=== PATIENT | male | born 1950 | race Caucasian/White ===

== ENCOUNTER 2022-09-23 07:10 | Outpatient (OUT) | payer MEDICARE, SELFPAY ==
[2022-09-23 09:14] LABS: Anion Gap 10.3; BUN Creatinine Ratio 16.1; Calcium 9.1 mg/dL (8.5-10.1); Carbon Dioxide 31.2 mmol/L (21.0-32.0); Chloride 101 mmol/L (98-107); Estimated GFR (African America >60 (>=60); Estimated GFR (Non-African Ame >60 (>=60); Glucose 131 mg/dL (74-106); Potassium 4.5 mmol/L (3.5-5.1); Sodium 138 mmol/L (136-145)
== END 2022-09-23 07:11 ==
LOC: LAB 07:17
PROVIDERS: PCP Family Medicine; Visit Provider Family Medicine
DX: Z79.899 Other long term (current) drug therapy (principal)
CPT/HCPCS: 36415; 80048

== ENCOUNTER 2022-12-13 06:43 | Outpatient (OUT) | payer MEDICARE, SELFPAY ==
[2022-12-13 07:28] LABS: Basophils Percent Auto 0.4 % (0.2-2.0); Eosinophils Absolute Auto 0.1 10^3/uL (0.0-0.7); Eosinophils Percent Auto 1.6 % (0.9-7.0); Hematocrit 43.6 % (42.0-54.0); Immature Granulocytes Abs Auto 0.04 10^3/uL (0.00-0.03); Immature Granulocytes Pct Auto 0.5 % (0.0-0.5); Lymphocytes Absolute Auto 1.4 10^3/uL (1.2-3.8); Lymphocytes Percent Auto 18.7 % (20.5-60.0); Mean Corpuscular HGB Conc 34.4 g/dL (29.9-35.2); Mean Corpuscular Hemoglobin 30.9 pg (25.9-34.0); Mean Corpuscular Volume 89.9 fL (80.0-94.0); Mean Platelet Volume 10.1 fL (9.5-13.5); Monocytes Absolute Auto 0.6 10^3/uL (0.3-0.8); Monocytes Percent Auto 7.9 % (1.7-12.0); Neutrophils Absolute Auto 5.2 10^3/uL (1.4-6.5); Neutrophils Percent Auto 70.9 % (43.0-75.0); Platelet Count 185 10^3/uL (150-450); Red Blood Count 4.85 10^6/uL (4.70-6.10); Red Cell Distribution Width 12.7 % (11.0-15.0); White Blood Count 7.3 10^3/uL (4.0-11.0)
[2022-12-13 07:35] LABS: Bilirubin Urine NEGATIVE (NEGATIVE); Blood Urine NEGATIVE (NEGATIVE); Clarity Urine CLEAR (CLEAR); Color Urine YELLOW (YELLOW); Glucose Urine UA NEGATIVE (NEGATIVE); Ketones Urine TRACE mg/dL (NEGATIVE); Leukocyte Esterase Urine NEGATIVE (NEGATIVE); Nitrite Urine NEGATIVE (NEGATIVE); Protein Urine NEGATIVE (NEG/TRACE); Specific Gravity Urine 1.025 (1.005-1.025); pH Urine 5.5 (5.0-9.0)
[2022-12-13 08:06] LABS: Estimated Average Glucose 134 mg/dL; Glycohemoglobin A1C 6.3 % (4.5-6.2)
[2022-12-13 08:16] LABS: Alanine Aminotransferase 23 U/L (16-63); Albumin Globulin Ratio 0.8; Albumin Level 3.5 g/dL (3.4-5.0); Alkaline Phosphatase 88 U/L (46-116); Anion Gap 13.7; Aspartate Amino Transferase 10 U/L (15-37); BUN Creatinine Ratio 14.8; Bilirubin Total 0.7 mg/dL (0.2-1.0); Carbon Dioxide 28.5 mmol/L (21.0-32.0); Chloride 98 mmol/L (98-107); Chol HDL Ratio 3.2; Cholesterol 186 mg/dL (<=200); Estimated GFR (African America >60 (>=60); Estimated GFR (Non-African Ame >60 (>=60); Globulin 4.4 g/dL; Glucose 138 mg/dL (74-106); HDL Cholesterol 59 mg/dL (40-60); LDL Cholesterol Calculated 109.2 mg/dL; Potassium 4.2 mmol/L (3.5-5.1); Sodium 136 mmol/L (136-145); Thyroid Stimulating Hormone 1.357 uIU/mL (0.358-3.740); Total Protein 7.9 g/dL (6.4-8.2); Triglycerides 89 mg/dL (<=150); VLDL CHOLESTEROL 17.8 mg/dL
[2022-12-14 11:12] LABS: PSA, Free 0.29 ng/mL; Prostate Specific Ag 1.2 ng/mL (0.0-4.0)
== END 2022-12-13 06:44 | disposition home or self-care (01) ==
LOC: LAB 06:47
PROVIDERS: PCP Family Medicine; Visit Provider Family Medicine
DX: R35.1 Nocturia (principal); E78.5 Hyperlipidemia, unspecified; R73.9 Hyperglycemia, unspecified; Z79.899 Other long term (current) drug therapy; R97.20 Elevated prostate specific antigen [PSA]; E53.8 Deficiency of other specified B group vitamins; R63.5 Abnormal weight gain
CPT/HCPCS: 36415; 80053; 80061; 81003; 82607; 82746; 83036; 84153; 84154; 84443; 85025; 87086

== ENCOUNTER 2023-01-03 07:27 | Outpatient (OUT) | payer MEDICARE, SELFPAY ==
[2023-01-03 08:53] LABS: BUN Creatinine Ratio 18.1; Carbon Dioxide 29.9 mmol/L (21.0-32.0); Chloride 100 mmol/L (98-107); Estimated GFR (African America >60 (>=60); Estimated GFR (Non-African Ame >60 (>=60); Glucose 142 mg/dL (74-106); Potassium 3.9 mmol/L (3.5-5.1); Sodium 135 mmol/L (136-145)
== END 2023-01-03 07:28 | disposition home or self-care (01) ==
LOC: LAB 07:28
PROVIDERS: PCP Family Medicine; Visit Provider Family Medicine
DX: I10 Essential (primary) hypertension (principal); Z79.899 Other long term (current) drug therapy
CPT/HCPCS: 36415; 80048

== ENCOUNTER 2023-12-12 07:02 | Outpatient (OUT) | payer MEDICARE, SELFPAY ==
[2023-12-12 07:39] LABS: Basophils Percent Auto 0.5 % (0.2-2.0); Eosinophils Absolute Auto 0.1 10^3/uL (0.0-0.7); Eosinophils Percent Auto 1.6 % (0.9-7.0); Hematocrit 44.3 % (42.0-54.0); Hemoglobin 14.9 g/dL (14.0-18.0); Immature Granulocytes Abs Auto 0.02 10^3/uL (0.00-0.03); Immature Granulocytes Pct Auto 0.3 % (0.0-0.5); Lymphocytes Absolute Auto 1.3 10^3/uL (1.2-3.8); Lymphocytes Percent Auto 17.7 % (20.5-60.0); Mean Corpuscular HGB Conc 33.6 g/dL (29.9-35.2); Mean Corpuscular Hemoglobin 30.3 pg (25.9-34.0); Mean Platelet Volume 10.3 fL (9.5-13.5); Monocytes Absolute Auto 0.5 10^3/uL (0.3-0.8); Monocytes Percent Auto 7.2 % (1.7-12.0); Neutrophils Absolute Auto 5.5 10^3/uL (1.4-6.5); Neutrophils Percent Auto 72.7 % (43.0-75.0); Platelet Count 174 10^3/uL (150-450); Red Blood Count 4.92 10^6/uL (4.70-6.10); Red Cell Distribution Width 12.6 % (11.0-15.0); White Blood Count 7.5 10^3/uL (4.0-11.0)
[2023-12-12 07:45] LABS: Bilirubin Urine NEGATIVE (NEGATIVE); Blood Urine NEGATIVE (NEGATIVE); Clarity Urine CLEAR (CLEAR); Color Urine YELLOW (YELLOW); Glucose Urine UA NEGATIVE (NEGATIVE); Ketones Urine TRACE mg/dL (NEGATIVE); Leukocyte Esterase Urine NEGATIVE (NEGATIVE); Nitrite Urine NEGATIVE (NEGATIVE); Protein Urine NEGATIVE (NEG/TRACE); Specific Gravity Urine >=1.030 (1.005-1.025); pH Urine 5.5 (5.0-9.0)
[2023-12-12 07:56] LABS: Alanine Aminotransferase 24 U/L (16-63); Albumin Globulin Ratio 0.9; Albumin Level 3.4 g/dL (3.4-5.0); Alkaline Phosphatase 94 U/L (46-116); Anion Gap 12.6; Aspartate Amino Transferase 9 U/L (15-37); BUN Creatinine Ratio 15.2; Calcium 9.4 mg/dL (8.5-10.1); Carbon Dioxide 29.7 mmol/L (21.0-32.0); Chloride 97 mmol/L (98-107); Chol HDL Ratio 2.9; Cholesterol 187 mg/dL (<=200); Estimated GFR (African America >60 (>=60); Estimated GFR (Non-African Ame >60 (>=60); Globulin 3.9 g/dL; Glucose 151 mg/dL (74-106); HDL Cholesterol 64 mg/dL (40-60); Potassium 4.3 mmol/L (3.5-5.1); Sodium 135 mmol/L (136-145); Thyroid Stimulating Hormone 1.592 uIU/mL (0.358-3.740); Total Protein 7.3 g/dL (6.4-8.2); Triglycerides 113 mg/dL (<=150); VLDL CHOLESTEROL 22.6 mg/dL
[2023-12-12 07:58] LABS: Estimated Average Glucose 143 mg/dL; Glycohemoglobin A1C 6.6 % (4.5-6.2)
[2023-12-12 08:13] LABS: Bacteria Urine NONE SEEN #/HPF (NONE SEEN); Mucus Urine SMALL (NONE SEEN); RBC Urine NONE SEEN #/HPF (0-2); Squamous Epithelial Cell Urine FEW #/LPF (NONE/RARE); WBC Urine NONE SEEN #/HPF (NONE SEEN)
[2023-12-12 08:14] LABS: Cast Seen? SEEN #/LPF (NONE SEEN); Hyaline Casts Urine FEW
[2023-12-12 08:15] LABS: Urine Culture Indicated ALREADY ORDERED
[2023-12-13 04:12] LABS: PSA, Free 0.26 ng/mL; Prostate Specific Ag 0.9 ng/mL (0.0-4.0)
== END 2023-12-12 07:03 | disposition home or self-care (01) ==
LOC: LAB 07:05
PROVIDERS: PCP Family Medicine; Visit Provider Family Medicine
DX: R63.4 Abnormal weight loss (principal); R73.9 Hyperglycemia, unspecified; E78.5 Hyperlipidemia, unspecified; R35.1 Nocturia; Z79.899 Other long term (current) drug therapy; E53.8 Deficiency of other specified B group vitamins; R97.20 Elevated prostate specific antigen [PSA]
CPT/HCPCS: 36415; 80053; 80061; 81001; 82607; 82746; 83036; 84153; 84154; 84443; 85025; 87086

== ENCOUNTER 2024-12-15 06:34 | Outpatient (OUT) | payer MEDICARE, SELFPAY ==
--- OUTSIDE RECORDS SUMMARY | 2024-12-15 06:47 | XMS_ITS | CCD ---
Author Organization [facility] Care Team Providers Care Heel Gummer Name Role Phone Celso Colon Unavailable DARLENE, DR HOUSTON Attending Unavailable DARLENE, DR HOUSTON Consulting Unavailable DARLENE, DR HOUSTON Primary Care Unavailable GIRBOZENA, DR HOUSTON Admitting Unavailable GIRBOZENA, DR HOUSTON Attending Unavailable GIRVIN, DR HOUSTON Consulting Unavailable GIRVIN, DR HOUSTON Primary Care Unavailable GIRVIN, DR HUOSTON Admitting Unavailable GIRVIN, DR HOUSTON Attending Unavailable GIRVIN, DR HOUSTON Consulting Unavailable DARLENE, DR HOUSTON Primary Care Unavailable GIRVIN, DR HOUSTON Admitting Unavailable DARLENE, DR HOUSTON Attending Unavailable GIRVIN, DR HOUSTON Consulting Unavailable GIRVIN, DR HOUSTON Primary Care Unavailable GIRVIN, DR HOUSTON Admitting Unavailable Medications Current Medications Medication Drug Class(es) Dates Sig (Normalized) Sig (Original) [id number] 200 actuat albuterol 0.09 mg/actuat metered dose inhaler (1 source) beta2-Adrenergic Agonist Start: 09-26-2024 take 1 puff(s) by inhalation every four to six hours as needed for wheezing Albuterol Sulfate 90 mcg/actuation HFA aerosol inhaler Active 2 PUFF INHALATION EVERY 4-6 HOURS as needed for shortness of breath or wheezing 8.5 September 26, 2024 12:00am amLODIPine 10 mg oral tablet (15 sources) Dihydropyridine Calcium Channel Cassy Start: 10-31-2023 End: 09-04-2024 take 0.5 tablet by mouth once daily, then take 1 tablet by mouth once daily Amlodipine (Norvasc) 10 mg tablet Active 0 PO Daily 45 September 04, 2024 9:47am take 1/2 of a 10 MG tablet orally daily; take 0.5 tablet by mouth once da kamaljit Norvasc 10 mg 1/2 tablet Orally Once a day Active doxycycline hyclate 100 mg oral capsule (1 source) Tetracycline-class Drug Start: 09-26-2024 take 1 capsule by mouth twice daily Doxycycline Hyclate 100 mg capsule Active 100 MG PO Twice daily 04 02September 26, 2024 12:00am furosemide 40 mg oral tablet (16 sources) Loop Diuretic Start: 10-31-2023 End: 09-04-2024 Furosemide 40 mg tablet Active 0 .ROUTE .COMPLEX September 04, 2024 9:47am TAKE 1 TABLET EVERY MORNING Start: 10-31-2023 End: 10-31-2023 take 1 tablet by mouth once daily in the morning Furosemide 40 mg tablet Discontinued 40 MG PO .COMPLEX October 31, 2023 12:00am October 31, 2023 10:22am 40 mg orally ;TAKE 1 TABLET BY MOUTH ONCE EVERY MORNING; Start: 06-14-2022 take 1 tablet by clemente th once daily in the morning Lasix 40 MG 1 tablet Orally qd am for 30 days May, Active losartan potassium 50 mg oral tablet (7 sources) Angiotensin 2 Receptor Cassy Start: 10-31-2023 End: 09-04-2024 take 1 tablet by mouth once daily Losartan 50 mg tablet Active 50 MG PO Daily September 04, 2024 9:47am Start: 12-15-2022 take 1 tablet by clemente th every twenty-four hours Losartan Potassium 50 MG 1 tablet Orally Once a day for 90 days Nov, Active Start: 12-15-2022 take 1 tablet by clemente th every twenty-four hours Losartan Potassium 25 MG 1 tablet Orally Once a day for 30 days Nov, Active mecobalamin 1 mg chewable tablet (2 sources) Start: 12-14-2023 take 1 tablet by mouth once daily Mecobalamin (Vitamin B12) 1,000 mcg tablet,chewable Active 1000 MCG PO Daily December 14, 2023 12:00am 24 hr metFORMIN hydrochloride 500 mg extended release oral tablet (8 sources) Biguanide Start: 12-20-2023 take 2 tablets by mouth once daily at dinner Metformin 500 mg tablet extended release 24 hr Active 500 MG PO Every evening December 20, 2023 12:00am take 2 (500 mg) tablets with evening meal Start: 12-14-2023 End: 12-20-2023 take 1 tablet by mouth once daily in the evening Metformin 1,000 mg tablet extended release 24 hr Discontinued 1000 MG PO Every evening December 14, 2023 12:00am December 20, 2023 1:27pm *with PM meal Start: 10-31-2023 End: 12-14-2023 take 1 tablet by mouth once daily Metformin 500 mg tablet extended release 24 hr Discontinued 500 MG PO .COMPLEX October 31, 2023 12:00am December 14, 2023 8:52am 500 mg orally 1 tablet with evening meal Orally Once a day; Start: 12-10-2021 take 1 tablet by [facility] every twenty-four hours metFORMIN HCl ER 500 MG 1 tablet with evening meal Orally Once a day for 90 days Nov, Active 24 hr metoprolol succinate 100 mg extended release oral tablet (13 sources) beta-Adrenergic Cassy Start: 10-31-2023 End: 04-04-2024 take 1 tablet by mouth once daily Metoprolol Succinate 100 mg tablet extended release 24 hr Active 100 MG PO Daily April 04, 2024 11:18am Start: 02-16-2017 take 1 tablet by [facility] every twenty-four hours Metoprolol Succinate ER 100 MG 1 tablet Orally Once a day Feb, Active omeprazole 40 mg delayed release oral capsule (14 sources) Proton Pump Inhibitor Start: 12-14-2023 take 1 capsule by mouth at mealtime Omeprazole 40 mg capsule,delayed release(DR/EC) Active 40 MG PO Daily December 14, 2023 12:00am *take 15 min prior to a meal Start: 10-31-2023 End: 12-14-2023 take 1 capsule by mouth once daily Omeprazole 20 mg capsule,delayed release(DR/EC) Discontinued 20 MG PO Daily October 31, 2023 12:00am December 14, 2023 8:55am Start: 02-16-2017 take 1 capsule by mo [facility] every twenty-four hours Omeprazole 20 MG 1 capsule Orally Once a day for 90 days Feb, Active microencapsulated potassium chloride 20 meq extended release oral tablet (9 sources) Start: 06-14-2022 take 1 tablet by mouth every twenty-four hours Klor-Con M20 20 MEQ 1 tablet with food Orally Once a day for 30 days May, Active predniSONE 20 mg oral tablet (1 source) Start: 09-26-2024 take 2 tablets by mouth once daily Prednisone 20 mg tablet Active 20 MG PO .COMPLEX September 26, 2024 12:00am Take 2 tabs po daily x 5 days Vitamin B 12 1000 mcg (10 sources) Start: 05-20-2017 Vitamin B 12 1 000 mcg as directed Orally Once a day May, Active Problems Active Problems Problem Classification Problem Date Documented Date Episodic/Chronic Cardiac dysrhythmias (4 sources) Other premature depolarization; 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 Deficiency and other anemia (12 sources) Anemia; Translations: [Anemia, unspecified] 12-14-2023 Episodic Deficiency and other anemia (1 source) Anemia, unspecified; Translations: [Anemia, unspecified] 12-14-2023 Episodic Diabetes mellitus without complication (3 sources) Type 2 diabetes mellitus without complication; Translations: [Type 2 diabetes mellitus without complications] 12-14-2023 Chronic Diabetes mellitus without complication (4 sources) Hyperglycemia, unspecified; Translations: [HYPERGLYCEMIA UNSPECIFIED] Onset: 12-10-2021 Episodic Disorders of lipid metabolism (18 sources) Hyperlipidemia; Translations: [Hyperlipidemia, unspecified] Onset: 12-08-2021 Chronic Esophageal disorders (15 sources) Gastroesophageal reflux disease; Translations: [Gastro-esophageal reflux disease without esophagitis] Chronic Essential hypertension (18 sources) Essential hypertension; Translations: [Essential (primary) hypertension] Chronic Genitourinary symptoms and ill-defined conditions (2 sources) Nocturia; Translations: [NOCTURIA] Onset: 12-10-2021 Episodic Nutritional deficiencies (3 sources) Deficiency of other specified B group vitamins; Translations: [DEFICIENCY SPEC B GROUP VITAMINS] Onset: 01-25-2022 Episodic Other aftercare (7 sources) Other intermediate (current) drug therapy; Translations: [OTH 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 DRUG THERAPY] Onset: 12-10-2021 Episodic Other aftercare (2 sources) Long-term current use of drug therapy; Translations: [Other intermediate frame tender (current) drug therapy] 12-14-2023 Episodic Other diseases of veins and lymphatics (10 sources) Peripheral venous insufficiency; Translations: [Venous insufficiency (chronic) (peripheral)] Episodic Other diseases of veins and lymphatics (2 sources) Venous insufficiency (chronic) (peripheral) Episodic Other nervous system disorders (2 sources) Loss of taste; Translations: [Parageusia] 12-14-2023 Episodic Other nervous system disorders (1 source) Parageusia; Translations: [Disturbances of sensation of smell and taste] 12-14-2023 Episodic Other nutritional; endocrine; and metabolic disorders (1 source) Abnormal weight loss Episodic Other screening for suspected conditions (not mental disorders or infectious disease) (7 sources) Elevated prostate specific antigen [PSA]; Translations: [Other specified abnormal findings of blood chemistry] Onset: 12-10-2021 Episodic Other skin disorders (1 source) Rash and other nonspecific skin eruption Episodic Residual codes; unclassified (8 sources) Edema, unspecified; Translations: [EDEMA UNSPECIFIED] Onset: 07-22-2022 Episodic Past or Other Problems Problem Classification Problem Date Documented Da te Episodic/Chronic Other nutritional; endocrine; and metabolic disorders (2 sources) Abnormal weight gain; Translations: [ABNORMAL WEIGHT GAIN] Onset: 12-10-2021 Episodic Results Test Name Value Interpretation Reference Range Facility Basophils Auto (Bld) [#/Vol] on 12-12-2023 Basophils (Bld) [#/Vol] 0.0 10 3/uL 0.0-0.1 [facility] Basophils/100 WBC Auto (Bld) on 12-12-2023 Basophils/100 WBC (Bld) 0.5 % 0.2-2.0 [facility] Cholesterol in LDL Calc [Mas s/Vol]on 12-12-2023 Cholesterol in LDL [Mass/Vol] 101.0 mg/dL [facility] Comment on above: <100 mg/dl [id number] 0-129 mg/dl NEAR OR ABOVE [id number] mg/dl BORDERLINE [id number] mg/dl HIGH>190 mg/dl VERY HIGH Cholesterol in VLDL Calc [Ma ss/Vol]on 12-12-2023 Cholesterol in VLDL [Mass/Vol] 22.6 mg/dL [facility] Eosinophils/100 WBC Auto (Bl d)on 12-12-2023 Eosinophils/100 WBC (Bld) 1.6 % 0.9-7.0 [facility] Erythrocyte distribution wid th Auto (RBC) [Ratio]on 12-12-2023 Erythrocyte distribution width (RBC) [Ratio] 12.6 % 11.0-15.0 [facility] Estimated glomerular filtrat ion rate (GFR) non- Americanon 12-12-2023 GFR/1.73 sq M.predicted among non-blacks MDRD (S/P/Bld) [Vol rate/Area] mL/min/{1.73_m2} >=60 [facility] Globulin Calc (S) [Mass/Vol] on 12-12-2023 Globulin (S) [Mass/Vol] 3.9 g/dL [facility] Glucose mean value [Mass/vol ume] in Blood Estimated from glycated hemoglobinon 12-12-2023 Average glucose Estimated from glycated hemoglobin (Bld) [Mass/Vol] 143 mg/dL [facility] Hematocrit Auto (Bld) [Volum e fraction]on 12-12-2023 Hematocrit (Bld) [Volume fraction] 44.3 % 42.0-54.0 [facility] Hemoglobin [Mass/volume] in Bloodon 12-12-2023 Hemoglobin (Bld) [Mass/Vol] 14.9 g/dL 14.0-18.0 [facility] Laboratory - Chemistry and C hemistry - challengeon 12-12-2023 Albumin [Mass/Vol] 3.4 g/dL 3.4-5.0 [facility] ALP [Catalytic activity/Vol] 94 U/L 46-116 [facility] ALT [Catalytic activity/Vol] 24 U/L 16-63 [facility] AST [Catalytic activity/Vol] 9 U/L Low 15-37 [facility] Bilirubin [Mass/Vol] 1.0 mg/dL 0.2-1.0 [facility] Calcium [Mass/Vol] 9.4 mg/dL 8.5-10.1 [facility] Chloride [Moles/Vol] 97 mmol/L Low 98-107 [facility] Cholesterol [Mass/Vol] 187 mg/dL <=200 [facility] Cholesterol in HDL [Mass/Vol] 64 mg/dL High 40-60 [facility] Comment on above: > or =60 mg/dl - LOW CARDIOVASCULAR RISK<40 mg/dl - HIGH CARDIOVASCULAR RISK CO2 [Moles/Vol] 29.7 mmol/L 21.0-32.0 [facility] Cobalamin (Vitamin B12) [Mass/Vol] 626.0 pg/mL 193.0-986.0 [facility] Creatinine [Mass/Vol] 1.05 mg/dL 0.70-1.30 [facility] GFR/1.73 sq M.predicted MDRD (S/P/Bld) [Vol rate/Area] mL/min/{1.73_m2} >=60 [facility] Glucose [Mass/Vol] 151 mg/dL High 74-106 [facility] Potassium [Moles/Vol] 4.3 mmol/L 3.5-5.1 [facility] Protein [Mass/Vol] 7.3 g/dL 6.4-8.2 [facility] Sodium [Moles/Vol] 135 mmol/L Low 136-145 [facility] Triglyceride [Mass/Vol] 113 mg/dL <=150 [facility] TSH Qn 1.592 m[IU]/L 0.358-3.740 [facility] Urea nitrogen [Mass/Vol] 16.0 mg/dL 7.0-18.0 [facility] Urea nitrogen/Creatinine [Mass ratio] 15.2 mg/mg [facility] Bilirubin Ql (U) Negative NEGATIVE [facility] Glucose (U) [Mass/Vol] Negative NEGATIVE [facility] Ketones Ql (U) TRACE mg/dL Abnormal NEGATIVE [facility] pH (U) 5.5 [pH] 5.0-9.0 [facility] Specific gravity (U) [Rel density] >=1.030 Abnormal 1.005-1.025 [facility] Urobilinogen Qn (U) 1.0 {Domingo'U}/dL 0.2-1.0 [facility] Laboratory - Hematology and Cell countson 12-12-2023 HbA1c (Bld) [Mass fraction] 6.6 % High 4.5-6.2 [facility] Comment on above: ADA RECOMMENDED LIMI T 4.0 - 6.0ADA THERAPEUTIC TARGET < 7.0ACTION SUGGESTED> 7.0 Immature granulocytes/100 WBC (Bld) 0.3 % 0.0-0.5 [facility] Laboratory - Specimen inform ationon 08-26-2024 Appearance (U) CLEAR CLEAR [facility] Color (U) YELLOW YELLOW [facility] Laboratory - Urinalysison Hyaline casts LM Ql (Urine sed) FEW [facility] Leukocyte esterase Test strip Ql (U) Negative NEGATIVE [facility] Mucus Ql (Urine sed) SMALL Abnormal NONE SEEN [facility] Nitrite Ql (U) Negative NEGATIVE [facility] Protein Ql (U) Negative NEG/TRACE [facility] Leukocytes [#/volume] correc mary for nucleated erythrocytes in Blood by Automated counon 12-12-2023 WBC corrected for nucl RBC Auto (Bld) [#/Vol] 7.5 10 3/uL 4.0-11.0 [facility] Lymphocytes Auto (Bld) [#/Vo l]on 12-12-2023 Lymphocytes (Bld) [#/Vol] 1.3 10 3/uL 1.2-3.8 [facility] Lymphocytes/100 WBC Auto (Bl d)on 12-12-2023 Lymphocytes/100 WBC (Bld) 17.7 % Low 20.5-60.0 [facility] MCH Auto (RBC) [Entitic mass ]on 12-12-2023 MCH (RBC) [Entitic mass] 30.3 pg 25.9-34.0 [facility] MCHC Auto (RBC) [Mass/Vol]on 12-12-2023 MCHC (RBC) [Mass/Vol] 33.6 g/dL 29.9-35.2 [facility] MCV Auto (RBC) [Entitic vol] on 12-12-2023 MCV (RBC) [Entitic vol] 90.0 fL 80.0-94.0 [facility] Monocytes Auto (Bld) [#/Vol] on 12-12-2023 Monocytes (Bld) [#/Vol] 0.5 10 3/uL 0.3-0.8 [facility] Monocytes/100 WBC Auto (Bld) on 12-12-2023 Monocytes/100 WBC (Bld) 7.2 % 1.7-12.0 [facility] Neutrophils Auto (Bld) [#/Vo l]on 12-12-2023 Neutrophils (Bld) [#/Vol] 5.5 10 3/uL 1.4-6.5 [facility] Neutrophils/100 WBC Auto (Bl d)on 12-12-2023 Neutrophils/100 WBC (Bld) 72.7 % 43.0-75.0 [facility] No Panel Informationon 12-11 Eosinophils # (Auto) 0.1 10 3/uL 0.0-0.7 [facility] Folate 10.30 ng/mL 8.60-58.90 [facility] Free Prostate Specific Antigen 0.26 ng/mL N/A [facility] Comment on above: [employer] ECLIA methodol ogy. Immature Granulocyte # (Auto) 0.02 10 3/uL 0.00-0.03 [facility] Prostate Specific Antigen Total 0.9 ng/mL 0.0-4.0 [facility] Comment on above: [employer] ECLIA methodol ogy.According to the [employer], Serum PSAshould decrease and remain at undetectable levels afterradical prostatectomy. The AUA defines biochemicalrecurrence as an initial PSA value 0.2 ng/mL or greaterfollowed by a subsequent confirmatory PSA value 0.2 ng/mLor greater. Values obtained with different assay methods orkits cannot be used interchangeably. Results cannot beinterpreted as absolute evidence of the presence or absenceof malignant disease. Urine Bacteria NONE SEEN #/HPF NONE SEEN [facility] Urine Culture Reflexed ALREADY ORDERED [facility] Urine Occult Blood Negative NEGATIVE [facility] Urine Other Casts SEEN #/LPF Abnormal NONE SEEN [facility] Urine RBC NONE SEEN #/HPF 0-2 [facility] Urine Squamous Epithelial Cells FEW #/LPF Abnormal NONE/RARE [facility] Urine WBC NONE SEEN #/HPF NONE SEEN [facility] Platelet mean volume Auto (B ld) [Entitic vol]on 12-12-2023 Platelet mean volume (Bld) [Entitic vol] 10.3 fL 9.5-13.5 [facility] Platelets Auto (Bld) [#/Vol] on 12-12-2023 Platelets (Bld) [#/Vol] 174 10 3/uL 150-450 [facility] RBC Auto (Bld) [#/Vol]on RBC (Bld) [#/Vol] 4.92 10 6/uL 4.70-6.10 [facility] Serum or plasma albumin/glob ulin mass ratioon 12-12-2023 Albumin/Globulin [Mass ratio] 0.9 {ratio} [facility] Serum or plasma anion gap de terminationon 12-12-2023 Anion gap [Moles/Vol] 12.6 mmol/L [facility] Serum or plasma free prostat e specific antigen (PSA)/total PSA ratioon 12-12-2023 Free PSA/Total PSA [Mass fraction] 28.9 % . [facility] Comment on above: The table below list s the probability of prostate cancer formen with non-suspicious SANDRA results and total PSA between4 and 10 ng/mL, by patient age (Sheila et al, OBI 1998,279:1542). % Free PSA 50-64 yr 65-75 yr 0.00-10.00% 56% 55% 10.01-15.00% 24% 35% 15.01-20.00% 17% 23% 20.01-25.00% 10% 20% >25.00% 5% 9%Please note: Sheila et al did not make specific recommendations regarding the use of percent free PSA for any other population of men.Performed at: [facility] [id number] Director: Brien Garcia PhD, Phone: [phone] Serum or plasma total choles terol/high density lipoprotein (HDL) cholesterol mass kenny 12-12-2023 Cholesterol.total/C holesterol in HDL [Mass ratio] 2.9 {ratio} [facility] Comment on above: 3.3 - 4.4 LOW RISK4. 4 - 7.1 AVERAGE RISK7.1 - 11.0 MODERATE RISK>11.0 HIGH RISK PROF CHEM 8 (BAS METB)on Anion gap [Moles/Vol] 11.0 mmol/L Normal [facility] Comment on above: Performed By: #### C BC #### [facility] [address] [address] [address] Juan Miguel Mistry Calcium [Mass/Vol] 9.2 mg/dL Normal 8.5-10.1 [facility] Comment on above: Performed By: #### C BC #### [facility] [address] [place] [address] Dr. Juan Miguel Mistry Chloride [Moles/Vol] 100 mmol/L Normal 98-107 [facility] Comment on above: Performed By: #### C BC #### [facility] [address] [address] [address] Juan Miguel Mistry CO2 [Moles/Vol] 27.2 mmol/L Normal 21.0-32.0 [facility] Comment on above: Performed By: #### C BC #### [facility] [address] [place] [address] Dr. Juan Miguel Mistry Creatinine [Mass/Vol] 1.00 mg/dL Normal 0.70-1.30 [facility] Comment on above: Performed By: #### C BC #### [facility] [address] [place] [address] Dr. Juan Miguel Mistry EGFR-AF GREENLANDIC >60 Normal >=60 [facility] Comment on above: Performed By: #### C BC #### [facility] [address] [place] [address] Dr. Juan Miguel Mistry EGFR-NON AF GREENLANDIC >60 Normal >=60 [facility] Comment on above: Performed By: #### C BC #### [facility] [address] [place] [address] Dr. Juan Miguel Mistry Glucose [Mass/Vol] 142 mg/dL Critically high 74-106 [facility] Comment on above: Performed By: #### C BC #### [facility] [address] [place] [address] Dr. Juan Miguel Mistry Potassium [Moles/Vol] 4.2 mmol/L Normal 3.5-5.1 [facility] Comment on above: Performed By: #### C BC #### [facility] [address] [place] [address] Dr. Juan Miguel Msitry Sodium [Moles/Vol] 134 mmol/L Critically low 136-145 [facility] Comment on above: Performed By: #### C BC #### [facility] [address] [place] [address] Dr. Juan Miguel Mistry Urea nitrogen [Mass/Vol] 18.0 mg/dL Normal 7.0-18.0 [facility] Comment on above: Performed By: #### C BC #### [facility] [address] [place] [address] Dr. Juan Miguel Mistry Urea nitrogen/Creatinine [Mass ratio] 18.0 mg/mg Normal [facility] Comment on above: Performed By: #### C BC #### [facility] [address] [place] [address] Dr. Juan Miguel Mistry PROF 14(COMP METB)on 023 Albumin [Mass/Vol] 3.6 g/dL Normal 3.4-5.0 [facility] Comment on above: Performed By: #### C BC #### [facility] [address] [place] [address] Dr. Juan Miguel Mistry Albumin/Globulin [Mass ratio] 0.9 {ratio} Normal [facility] Comment on above: Performed By: #### C BC #### [facility] [address] [place] [address] Dr. Juan Miguel Mistry ALP [Catalytic activity/Vol] 82 U/L Normal 46-116 [facility] Comment on above: Performed By: #### C BC #### [facility] [address] [place] [address] Dr. Juan Miguel Mistry ALT [Catalytic activity/Vol] 22 U/L Normal 16-63 [facility] Comment on above: Performed By: #### C BC #### [facility] [address] [place] [address] Dr. Juan Miguel Mistry Anion gap [Moles/Vol] 12.7 mmol/L Normal [facility] Comment on above: Performed By: #### C BC #### [facility] [address] [place] [address] Dr. Juan Miguel Mistry AST [Catalytic activity/Vol] 15 U/L Normal 15-37 [facility] Comment on above: Performed By: #### C BC #### [facility] [address] [address] [address] Juan Miguel Mistry Bilirubin [Mass/Vol] 1.1 mg/dL Critically high 0.2-1.0 [facility] Comment on above: Performed By: #### C BC #### [facility] [address] [place] [address] Dr. Juan Miguel Mistry Calcium [Mass/Vol] 9.0 mg/dL Normal 8.5-10.1 [facility] Comment on above: Performed By: #### C BC #### [facility] [address] [address] [address] Juan Miguel Mistry Chloride [Moles/Vol] 101 mmol/L Normal 98-107 [facility] Comment on above: Performed By: #### C BC #### [facility] [address] [place] [address] Dr. Juan Miguel Mistry CO2 [Moles/Vol] 28.1 mmol/L Normal 21.0-32.0 [facility] Comment on above: Performed By: #### C BC #### [facility] [address] [place] [address] Dr. Juan Miguel Mistry Creatinine [Mass/Vol] 0.91 mg/dL Normal 0.70-1.30 [facility] Comment on above: Performed By: #### C BC #### [facility] [address] [place] [address] Dr. Juan Miguel Mistry EGFR-AF GREENLANDIC >60 Normal >=60 [facility] Comment on above: Performed By: #### C BC #### [facility] [address] [place] [address] Dr. Juan Miguel Mistry EGFR-NON AF GREENLANDIC >60 Normal >=60 [facility] Comment on above: Performed By: #### C BC #### [facility] [address] [place] [address] Dr. Juan Miguel Mistry Globulin (S) [Mass/Vol] 3.9 g/dL Normal [facility] Comment on above: Performed By: #### C BC #### [facility] [address] [place] [address] Dr. Juan Miguel Mistry Glucose [Mass/Vol] 133 mg/dL Critically high 74-106 [facility] Comment on above: Performed By: #### C BC #### [facility] [address] [place] [address] Dr. Juan Miguel Mistry Potassium [Moles/Vol] 4.8 mmol/L Normal 3.5-5.1 [facility] Comment on above: Performed By: #### C BC #### [facility] [address] [place] [address] Dr. Juan Miguel Mistry Protein [Mass/Vol] 7.5 g/dL Normal 6.4-8.2 [facility] Comment on above: Performed By: #### C BC #### [facility] [address] [place] [address] Dr. Juan Miguel Msitry Sodium [Moles/Vol] 137 mmol/L Normal 136-145 [facility] Comment on above: Performed By: #### C BC #### [facility] [address] [place] [address] Dr. Juan Miguel Mistry Urea nitrogen [Mass/Vol] 17.0 mg/dL Normal 7.0-18.0 [facility] Comment on above: Performed By: #### C BC #### [facility] [address] [place] [address] Dr. Juan Miguel Mistry Urea nitrogen/Creatinine [Mass ratio] 18.7 mg/mg Normal [facility] Comment on above: Performed By: #### C BC #### [facility] [address] [place] [address] Dr. Juan Miguel Mistry PROF 14(COMP METB)on 022 Albumin [Mass/Vol] 3.5 g/dL Normal 3.4-5.0 [facility] Comment on above: Performed By: #### C MP #### [facility] [address] [place] [address] Dr. Juan Miguel Mistry Albumin/Globulin [Mass ratio] 0.9 {ratio} Normal [facility] Comment on above: Performed By: #### C MP #### [facility] [address] [place] [address] Dr. Juan Miguel Mistry ALP [Catalytic activity/Vol] 75 U/L Normal 46-116 [facility] Comment on above: Performed By: #### C MP #### [facility] [address] [address] [address] Juan Miguel Mistry ALT [Catalytic activity/Vol] 25 U/L Normal 16-63 [facility] Comment on above: Performed By: #### C MP #### [facility] [address] [address] [address] Juan Miguel Mistry Anion gap [Moles/Vol] 7.6 mmol/L Normal [facility] Comment on above: Performed By: #### C MP #### [facility] [address] [address] [address] Juan Miguel Mistry AST [Catalytic activity/Vol] 11 U/L Critically low 15-37 [facility] Comment on above: Performed By: #### C MP #### [facility] [address] [address] [address] Juan Miguel Mistry Bilirubin [Mass/Vol] 0.8 mg/dL Normal 0.2-1.0 [facility] Comment on above: Performed By: #### C MP #### [facility] [address] [address] [address] Juan Miguel Mistry Calcium [Mass/Vol] 8.7 mg/dL Normal 8.5-10.1 [facility] Comment on above: Performed By: #### C MP #### [facility] [address] [address] [address] Juan Miguel Mistry Chloride [Moles/Vol] 101 mmol/L Normal 98-107 [facility] Comment on above: Performed By: #### C MP #### [facility] [address] [address] [address] Juan Miguel Mistry CO2 [Moles/Vol] 28.8 mmol/L Normal 21.0-32.0 [facility] Comment on above: Performed By: #### C MP #### [facility] [address] [address] [address] Juan Miguel Mistry Creatinine [Mass/Vol] 1.22 mg/dL Normal 0.70-1.30 [facility] Comment on above: Performed By: #### C MP #### [facility] [address] [address] [address] Juan Miguel Mistry EGFR-AF GREENLANDIC >60 Normal >=60 [facility] Comment on above: Performed By: #### C MP #### [facility] [address] [address] [address] Juan Miguel Mistry EGFR-NON AF GREENLANDIC 58 mL/min/1.73m2 Critically low >=60 [facility] Comment on above: Performed By: #### C MP #### [facility] [address] [address] [address] Juan Miguel Mistry Globulin (S) [Mass/Vol] 3.8 g/dL Normal [facility] Comment on above: Performed By: #### C MP #### [facility] [address] [address] [address] Juan Miguel Mistry Glucose [Mass/Vol] 146 mg/dL Critically high 74-106 [facility] Comment on above: Performed By: #### C MP #### [facility] [address] [address] [address] Juan Miguel Mistry Potassium [Moles/Vol] 4.4 mmol/L Normal 3.5-5.1 [facility] Comment on above: Performed By: #### C MP #### [facility] [address] [address] [address] Juan Miguel Mistry Protein [Mass/Vol] 7.3 g/dL Normal 6.4-8.2 [facility] Comment on above: Performed By: #### C MP #### [facility] [address] [address] [address] Juan Miguel Mistry Sodium [Moles/Vol] 133 mmol/L Critically low 136-145 [facility] Comment on above: Performed By: #### C MP #### [facility] [address] [address] [address] Juan Miguel Mistry Urea nitrogen [Mass/Vol] 17.0 mg/dL Normal 7.0-18.0 [facility] Comment on above: Performed By: #### C MP #### [facility] [address] [place], [place] [address] Dr. Juan Miguel Mistry Urea nitrogen/Creatinine [Mass ratio] 13.9 mg/mg Normal [facility] Comment on above: Performed By: #### C MP #### [facility] [address] [place], [place] [address] Dr. Juan Miguel Mistry VIT B12 AND FOLATEon 022 Cobalamin (Vitamin B12) [Mass/Vol] 412.0 pg/mL Normal 193.0-986.0 [facility] Comment on above: Performed By: #### B 12FOL #### [facility] [address] [id number] [address] Juan Miguel Mistry FOLATE 8.80 ng/mL Normal 8.60-58.90 [facility] Comment on above: Performed By: #### B 12FOL #### [facility] [address] [place], [place] [id number] Dr. Juan Miguel Mistry PSA, FREE AND TOTAL RATIOon 12-09-2021 % Free PSA 28.3 % Normal [facility] Comment on above: Result Comment: The table below lists the probability of prostate cancer for men with non-suspicious SANDRA results and total PSA between 4 and 10 ng/mL, by patient age (Sheila et al, OBI 1998, 279:1542). % Free PSA 50-64 yr 65-75 yr 0.00-10.00% 56% 55% 10.01-15.00% 24% 35% 15.01-20.00% 17% 23% 20.01-25.00% 10% 20% >25.00% 5% 9% Please note: Sheila et al did not make specific recommendations regarding the use of percent free PSA for any other population of men. Performed By: #### C BC #### [facility] [address] [place], [place] [id number] Dr. Juan Miguel Mistry Prostate specific Ag [Mass/Vol] 3.0 ng/mL Normal 0.0-4.0 [facility] Comment on above: Result Comment: Roch jose f ECLIA methodology. . According to the [employer], Serum PSA should decrease and remain at undetectable levels after radical prostatectomy. The AUA defines biochemical recurrence as an initial PSA value 0.2 ng/mL or greater followed by a subsequent confirmatory PSA value 0.2 ng/mL or greater. Values obtained with different assay methods or kits cannot be used interchangeably. Results cannot be interpreted as absolute evidence of the presence or absence of malignant disease. Performed By: #### C BC #### [facility] [address] [place] [address] Dr. Juan Miguel Mistry PSA, Free 0.85 ng/mL Normal N/A [facility] Comment on above: Result Comment: Jessica LUEVANO methodology. Performed By: #### C BC #### [facility] [address] [place] [address] Dr. Juan Miguel Mistry CBC AUTO DIFFon 12-08-2021 BASO # 0.0 103/ul Normal 0.0-0.1 [facility] Comment on above: Performed By: #### C BC #### [facility] [address] [place] [address] Dr. Juan Miguel Mistry Basophils/100 WBC (Bld) 0.5 % Normal 0.2-2.0 [facility] Comment on above: Performed By: #### C BC #### [facility] [address] [place] [address] Dr. Juan Miguel Mistry EO # 0.1 103/ul Normal 0.0-0.7 [facility] Comment on above: Performed By: #### C BC #### [facility] [address] [place] [address] Dr. Juan Miguel Mistry Eosinophils/100 WBC (Bld) 1.2 % Normal 0.9-7.0 [facility] Comment on above: Performed By: #### C BC #### [facility] [address] [place] [address] Dr. Juan Miguel Mistry Erythrocyte distribution width (RBC) [Ratio] 13.0 % Normal 11.0-15.0 [facility] Comment on above: Performed By: #### C BC #### [facility] [address] [place] [address] Dr. Juan Miguel Mistry Hematocrit (Bld) [Volume fraction] 42.9 % Normal 42.0-54.0 [facility] Comment on above: Performed By: #### C BC #### [facility] [address] [address] [address] Juan Miguel Mistry Hemoglobin (Bld) [Mass/Vol] 14.3 g/dL Normal 14.0-18.0 [facility] Comment on above: Performed By: #### C BC #### [facility] [address] [address] [address] Juan Miguel Mistry IG # 0.03 10e3/ul Normal 0.00-0.03 [facility] Comment on above: Performed By: #### C BC #### [facility] [address] [address] [address] Juan Miguel Mistry IG % 0.4 % Normal 0.0-0.5 [facility] Comment on above: Performed By: #### C BC #### [facility] [address] [place] [address] Dr. Juan Miguel Mistry LYMPH # 1.3 103/ul Normal 1.2-3.8 [facility] Comment on above: Performed By: #### C BC #### [facility] [address] [place] [address] Dr. Juan Miguel Mistry Lymphocytes/100 WBC (Bld) 17.3 % Critically low 20.5-60.0 [facility] Comment on above: Performed By: #### C BC #### [facility] [address] [place] [address] Dr. Juan Miguel Mistry MANUAL DIFF REQ NO Normal [facility] [place] Comment on above: Performed By: #### C BC #### [facility] [address] [address] [address] Juan Miguel Mistry MCH (RBC) [Entitic mass] 30.0 pg Normal 25.9-34.0 [facility] Comment on above: Performed By: #### C BC #### [facility] [address] [address] [address] Juan Miguel Mistry MCHC (RBC) [Mass/Vol] 33.3 g/dL Normal 29.9-35.2 [facility] Comment on above: Performed By: #### C BC #### [facility] [address] [address] [address] Juan Miguel Mistry MCV (RBC) [Entitic vol] 90.1 fL Normal 80.0-94.0 [facility] Comment on above: Performed By: #### C BC #### [facility] [address] [address] [address] Juan Miguel Mistry MONO # 0.7 103/ul Normal 0.3-0.8 [facility] Comment on above: Performed By: #### C BC #### [facility] [address] [address] [address] Juan Miguel Mistry Monocytes/100 WBC (Bld) 8.9 % Normal 1.7-12.0 [facility] Comment on above: Performed By: #### C BC #### [facility] [address] [place] [address] Dr. Juan Miguel Mistry NEUT # 5.6 103/ul Normal 1.4-6.5 [facility] Comment on above: Performed By: #### C BC #### [facility] [address] [place] [address] Dr. Juan Miguel Mistry Neutrophils/100 WBC (Bld) 71.7 % Normal 43.0-75.0 [facility] Comment on above: Performed By: #### C BC #### [facility] [address] [place] [address] Dr. Juan Miguel Mistry Platelet mean volume (Bld) [Entitic vol] 10.8 fL Normal 9.5-13.5 [facility] Comment on above: Performed By: #### C BC #### [facility] [address] [place] [address] Dr. Juan Miguel Mistry PLT 191 103/ul Normal 150-450 [facility] Comment on above: Performed By: #### C BC #### [facility] [address] [place] [address] Dr. Juan Miguel Mistry RBC 4.76 106/ul Normal 4.70-6.10 [facility] Comment on above: Performed By: #### C BC #### [facility] [address] [place] [address] Dr. Juan Miguel Mistry WBC 7.8 103/ul Normal 4.0-11.0 [facility] Comment on above: Performed By: #### C BC #### [facility] [address] [place] [address] Dr. Juan Miguel Mistry CULTURE URINEon 12-08-2021 CULTURE URINE Culture Observations : LIGHT GROWTH OF MIXED SKIN ANAYELI. NO POTENTIAL PATHOGENS SEEN. Normal [facility] Comment on above: Performed By: #### U RCX #### [facility] [address] [place] [address] Dr. Juan Miguel Mistry FOLATEon 12-08-2021 FOLATE 11.20 ng/mL Normal 8.60-58.90 [facility] Comment on above: Performed By: #### V ITB12, FOL #### [facility] [address] [place] [address] Dr. Juan Miguel Mistry GLYCOHEMOGLOBIN A1Con 2021 ADA RECOMMENDATION SEE BELOW Normal [facility] Comment on above: Result Comment: ADA RECOMMENDED LIMIT 4.0 - 6.0 ADA THERAPEUTIC TARGET < 7.0 ACTION SUGGESTED > 7.0 Performed By: #### C BC #### [facility] [address] [place] [address] Dr. Juan Miguel Mistry Glucose [Mass/Vol] 131 mg/dL Normal [facility] Comment on above: Performed By: #### C BC #### [facility] [address] [place] [address] Dr. Juan Miguel Mistry HbA1c (Bld) [Mass fraction] 6.2 % Normal 4.5-6.2 [facility] Comment on above: Performed By: #### C BC #### [facility] [address] [place] [address] Dr. Juan Miguel Mistry LIPID PROFILEon 12-08-2021 CHOL-HDL RATIO NORM SEE BELOW Normal [facility] Comment on above: Result Comment: 3.3 - 4.4 LOW RISK 4.4 - 7.1 AVERAGE RISK 7.1 - 11.0 MODERATE RISK >11.0 HIGH RISK Performed By: #### C MP, LIPID, TSH #### [facility] [address] [address] [address] Juan Miguel Mistry Cholesterol [Mass/Vol] 177 mg/dL Normal <=200 [facility] Comment on above: Performed By: #### C MP, LIPID, TSH #### [facility] [address] [address] [address] Juan Miguel Mistry Cholesterol in HDL [Mass/Vol] 61 mg/dL Critically high 40-60 [facility] Comment on above: Performed By: #### C MP, LIPID, TSH #### [facility] [address] [address] [address] Juan Miguel Mistry Cholesterol in LDL [Mass/Vol] 100.2 mg/dL Normal [facility] Comment on above: Performed By: #### C MP, LIPID, TSH #### [facility] [address] [address] [address] Juan Miguel Mistry Cholesterol.total/C holesterol in HDL [Mass ratio] 2.9 {ratio} Normal [facility] Comment on above: Performed By: #### C MP, LIPID, TSH #### [facility] [address] [address] [address] Juan Miguel Mistry HDL NORMAL > or = 60 mg/dl - LO W CARDIOVASCULAR RISK <40 mg/dl - HIGH CARDIOVASCULAR RISK Normal [facility] Comment on above: Performed By: #### C MP, LIPID, TSH #### [facility] [address] [address] [address] Juan Miguel Mistry LDL CALC NORMAL SEE BELOW Normal [facility] Comment on above: Result Comment: <100 mg/dl OPTIMAL 100 - 129 mg/dl NEAR OR ABOVE OPTIMAL 130 - 159 mg/dl BORDERLINE HIGH 160 - 189 mg/dl HIGH >190 mg/dl VERY HIGH Performed By: #### C MP, LIPID, TSH #### [facility] [address] [address] [address] Juan Miguel Mistry Triglyceride [Mass/Vol] 79 mg/dL Normal <=150 [facility] Comment on above: Performed By: #### C MP, LIPID, TSH #### [facility] [address] [address] [address] Juan Miguel Mistry VLDL CALC 15.8 mg/dL Normal [facility] Comment on above: Performed By: #### C MP, LIPID, TSH #### [facility] [address] [address] [address] Juan Miguel Mistry PROF 14(COMP METB)on 022 Albumin [Mass/Vol] 3.6 g/dL Normal 3.4-5.0 [facility] Comment on above: Performed By: #### C MP, LIPID, TSH #### [facility] [address] [place] [address] Dr. Juan Miguel Mistry Albumin/Globulin [Mass ratio] 0.9 {ratio} Normal [facility] Comment on above: Performed By: #### C MP, LIPID, TSH #### [facility] [address] [place] [address] Dr. Juan Miguel Mistry ALP [Catalytic activity/Vol] 85 U/L Normal 46-116 [facility] Comment on above: Performed By: #### C MP, LIPID, TSH #### [facility] [address] [place] [address] Dr. Juan Miguel Mistry ALT [Catalytic activity/Vol] 25 U/L Normal 16-63 [facility] Comment on above: Performed By: #### C MP, LIPID, TSH #### [facility] [address] [place] [address] Dr. Juan Miguel Mistry Anion gap [Moles/Vol] 12.4 mmol/L Normal [facility] Comment on above: Performed By: #### C MP, LIPID, TSH #### [facility] [address] [place] [address] Dr. Juan Miguel Mistry AST [Catalytic activity/Vol] 10 U/L Critically low 15-37 [facility] Comment on above: Performed By: #### C MP, LIPID, TSH #### [facility] [address] [place] [address] Dr. Juan Miguel Mistry Bilirubin [Mass/Vol] 0.7 mg/dL Normal 0.2-1.0 [facility] Comment on above: Performed By: #### C MP, LIPID, TSH #### [facility] [address] [address] [address] Juan Miguel Mistry Calcium [Mass/Vol] 8.7 mg/dL Normal 8.5-10.1 [facility] Comment on above: Performed By: #### C MP, LIPID, TSH #### [facility] [address] [address] [address] Juan Miguel Mistry Chloride [Moles/Vol] 100 mmol/L Normal 98-107 [facility] Comment on above: Performed By: #### C MP, LIPID, TSH #### [facility] [address] [address] [address] Juan Miguel Mistry CO2 [Moles/Vol] 27.9 mmol/L Normal 21.0-32.0 [facility] Comment on above: Performed By: #### C MP, LIPID, TSH #### [facility] [address] [place] [address] Dr. Juan Miguel Mistry Creatinine [Mass/Vol] 0.99 mg/dL Normal 0.70-1.30 [facility] Comment on above: Performed By: #### C MP, LIPID, TSH #### [facility] [address] [place] [address] Dr. Juan Miguel Mistry EGFR-AF GREENLANDIC >60 Normal >=60 [facility] Comment on above: Performed By: #### C MP, LIPID, TSH #### [facility] [address] [place] [address] Dr. Juan Miguel Mistry EGFR-NON AF GREENLANDIC >60 Normal >=60 [facility] Comment on above: Performed By: #### C MP, LIPID, TSH #### [facility] [address] [place] [address] Dr. Juan Miguel Mistry Globulin (S) [Mass/Vol] 3.9 g/dL Normal [facility] Comment on above: Performed By: #### C MP, LIPID, TSH #### [facility] [address] [place] [address] Dr. Juan Miguel Mistry Glucose [Mass/Vol] 138 mg/dL Critically high 74-106 [facility] Comment on above: Performed By: #### C MP, LIPID, TSH #### [facility] [address] [address] [address] Juan Miguel Mistry Potassium [Moles/Vol] 4.3 mmol/L Normal 3.5-5.1 [facility] Comment on above: Performed By: #### C MP, LIPID, TSH #### [facility] [address] [address] [address] Juan Miguel Mistry Protein [Mass/Vol] 7.5 g/dL Normal 6.4-8.2 [facility] Comment on above: Performed By: #### C MP, LIPID, TSH #### [facility] [address] [address] [address] Juan Miguel Mistry Sodium [Moles/Vol] 136 mmol/L Normal 136-145 [facility] Comment on above: Performed By: #### C MP, LIPID, TSH #### [facility] [address] [place] [address] Dr. Juan Miguel Mistry Urea nitrogen [Mass/Vol] 17.0 mg/dL Normal 7.0-18.0 [facility] Comment on above: Performed By: #### C MP, LIPID, TSH #### [facility] [address] [address] [address] Juan Miguel Mistry Urea nitrogen/Creatinine [Mass ratio] 17.2 mg/mg Normal [facility] Comment on above: Performed By: #### C MP, LIPID, TSH #### [facility] [address] [place] [address] Dr. Juan Miguel Mistry TSHon 12-08-2021 TSH 1.682 uIU/mL Normal 0.358-3.740 [facility] Comment on above: Performed By: #### C MP, LIPID, TSH #### [facility] [address] [place] [address] Dr. Juan Miguel Mistry UA RANDOMon 12-08-2021 Bilirubin Ql (U) Negative Normal NEGATIVE [facility] Comment on above: Performed By: #### U A #### [facility] [address] [place] [address] Dr. Juan Miguel Mistry Clarity (U) CLEAR Normal CLEAR [facility] Comment on above: Performed By: #### U A #### [facility] [address] [address] [address] Juan Miguel Mistry Color (U) LT. YELLOW Normal YELLOW [facility] Comment on above: Performed By: #### U A #### [facility] [address] [address] [address] Juan Miguel Mistry Glucose Ql (U) Negative Normal NEGATIVE [facility] Comment on above: Performed By: #### U A #### [facility] [address] [place] [address] Dr. Juan Miguel Mistry Hemoglobin Ql (U) Negative Normal NEGATIVE [facility] Comment on above: Performed By: #### U A #### [facility] [address] [place] [address] Dr. Juan Miguel Mistry Ketones Ql (U) Negative Normal NEGATIVE [facility] Comment on above: Performed By: #### U A #### [facility] [address] [place] [address] Dr. Juan Miguel Mistry LEUKOCYTES SMALL Abnormal NEGATIVE [facility] Comment on above: Performed By: #### U A #### [facility] [address] [place] [address] Dr. Juan Miguel Mistry Nitrite Ql (U) Negative Normal NEGATIVE [facility] Comment on above: Performed By: #### U A #### [facility] [address] [place] [address] Dr. Juan Miguel Mistry pH (U) 6.0 [pH] Normal 5-9 [facility] Comment on above: Performed By: #### U A #### [facility] [address] [place] [address] Dr. Juan Miguel Mistry SPEC GRAVITY 1.025 Normal 1.005-<=1.025 [facility] Comment on above: Performed By: #### U A #### [facility] [address] [place] [address] Dr. Juan Miguel Mistry UA PROTEIN Negative Normal NEGATIVE/ TRACE [facility] Comment on above: Performed By: #### U A #### [facility] [address] [place] [address] Dr. Juan Miguel Mistry Urobilinogen Qn (U) 1.0 {Domingo'U}/dL Normal 0.2 - 1. 0 [facility] Comment on above: Performed By: #### U A #### [facility] [address] [address] [address] Juan Miguel Mistry VITAMIN B12on 12-08-2021 Cobalamin (Vitamin B12) [Mass/Vol] 407.0 pg/mL Normal 193.0-986.0 [facility] Comment on above: Performed By: #### V ITB12, FOL #### [facility] [address] [address] [address] Juan Miguel Mistry Vital Signs Date Time Vital Sign Value Performing Clinician Facility 09-26-2024 10:09-0400 Diastolic blood pressure 90 mm[Hg] [facility] 09-26-2024 10:09-0400 Systolic blood pressure 164 mm[Hg] [facility] 09-26-2024 09:48-0400 Body height 167 cm [facility] 09-26-2024 09:48-0400 Body mass index (BMI) [Ratio] 49.1 kg/m2 [facility] 09-26-2024 09:48-0400 Body temperature 98.4 [degF] [facility] 09-26-2024 09:48-0400 Body weight 136.98 kg [facility] 09-26-2024 09:48-0400 Heart rate 62 /min [facility] 09-26-2024 09:48-0400 Respiratory rate 20 /min [facility] 09-26-2024 09:48-0400 SaO2% (BldA) [Mass fraction] 96 % [facility] 12-14-2023 08:24-0400 Body height 167 cm [facility] 12-14-2023 08:24-0400 Body mass index (BMI) [Ratio] 48.6 kg/m2 [facility] 12-14-2023 08:24-0400 Body temperature 97.7 [degF] [facility] 12-14-2023 08:24-0400 Body weight 135.62 kg [facility] 12-14-2023 08:24-0400 Diastolic blood pressure 78 mm[Hg] [facility] 12-14-2023 08:24-0400 Heart rate 66 /min [facility] 12-14-2023 08:24-0400 SaO2% (BldA) [Mass fraction] 98 % [facility] 12-14-2023 08:24-0400 Systolic blood pressure 142 mm[Hg] [facility] 01-17-2023 09:50-0400 Body height 167 cm Celso Colon Other [facility] [employer] Other 01-17-2023 09:50-0400 Body mass index (BMI) [Ratio] 48.3 kg/m2 Celso Colon Other [facility] Other 01-17-2023 09:50-0400 Body temperature 98.1 [degF] Celso Colon Other [facility] Other 01-17-2023 09:50-0400 Body weight 134.72 kg Celso Colon Other [facility] Other 01-17-2023 09:50-0400 Diastolic blood pressure 98 mm[Hg] Celso Colon Other [facility] Other 01-17-2023 09:50-0400 Respiratory rate 18 /min Celso Colon Other [facility] Other 01-17-2023 09:50-0400 SaO2% (BldA) [Mass fraction] 97 % Celso Colon Other [facility] Other 01-17-2023 09:50-0400 Systolic blood pressure 142 mm[Hg] Celso Colon Other [facility] Other 12-15-2022 08:10-0400 Body height 167 cm Celso Raquelbozena Other [facility] Other 12-15-2022 08:10-0400 Body mass index (BMI) [Ratio] 48.3 kg/m2 Celso Raquelbozena Other [facility] Other 12-15-2022 08:10-0400 Body temperature 98.4 [degF] Celso Colon Other [facility] Other 12-15-2022 08:10-0400 Body weight 134.72 kg Celso Colon Other [facility] Other 12-15-2022 08:10-0400 Diastolic blood pressure 100 mm[Hg] Celso Colon Other [facility] Other 12-15-2022 08:10-0400 Respiratory rate 18 /min Celso Darlene Other [facility] Other 12-15-2022 08:10-0400 SaO2% (BldA) [Mass fraction] 97 % Celso Colon Other [facility] Other 12-15-2022 08:10-0400 Systolic blood pressure 158 mm[Hg] Celso Colon Other [facility] Other 06-14-2022 14:00-0500 Body height 167 cm Celso Raquelbozena Other [facility] Other 06-14-2022 14:00-0500 Body mass index (BMI) [Ratio] 49.44 kg/m2 Celso Colon Other [facility] Other 06-14-2022 14:00-0500 Body temperature 98.4 [degF] Celso Colon Other [facility] Other 06-14-2022 14:00-0500 Body weight 137.89 kg Celso Colon Other [facility] Other 06-14-2022 14:00-0500 Diastolic blood pressure 88 mm[Hg] Celso Colon Other [facility] Other 06-14-2022 14:00-0500 Respiratory rate 18 /min Celso Colon Other [facility] Other 06-14-2022 14:00-0500 SaO2% (BldA) [Mass fraction] 95 % Celso Colon Other [facility] Other 06-14-2022 14:00-0500 Systolic blood pressure 138 mm[Hg] Celso Colon Other [facility] Other Encounters Encounter Date Encounter Type Care Provider Facility Start: 09-26-2024 End: 09-26-2024 ambulatory [facility] Work Phone: Start: 09-26-2024 End: 09-26-2024 Patient encounter procedure [facility] Work Phone: Start: 12-14-2023 End: 12-14-2023 ambulatory [facility] Work Phone: Start: 12-14-2023 End: 12-14-2023 Patient encounter procedure [facility] Physician [facility] Family [facility] Work Phone: Start: 12-12-2023 Non-patient / Non-visit [facility] Work Phone: Start: 10-31-2023 Non-patient / Non-visit [facility] Family [facility] Work Phone: Start: 01-17-2023 End: 01-17-2023 ambulatory Celso Colon Other [facility] Other Start: 01-17-2023 Office outpatient vi sit 15 minutes Celso Colon [facility] Start: 01-03-2023 End: 01-03-2023 ambulatory Celso Colon Other [facility] Other Start: 01-03-2023 Telephone encounter Celso Colon [facility] Start: 12-15-2022 End: 12-15-2022 ambulatory Celso Colon Other [facility] Other Start: 12-15-2022 Office outpatient vi sit 25 minutes Celso Colon [facility] Start: 09-20-2022 End: 09-20-2022 ambulatory Celso Colon Other [facility] Other Start: 09-20-2022 Telephone encounter Celso Colon [facility] Start: 08-20-2022 End: 08-20-2022 ambulatory Celso Colon Other [facility] Other Start: 08-20-2022 Telephone encounter Celso Colon [facility] Start: 07-22-2022 Telephone encounter Celso Colon [facility] Start: 07-22-2022 End: 07-23-[address]ELSO COLON [facility] [employer] Other Start: 07-14-2022 End: 07-14-2022 ambulatory Celso Colon Other [facility] Other Start: 07-14-2022 Telephone encounter Celso Colon [facility] Start: 06-21-2022 End: 06-22-[address] CELSO COLON Facility: Start: 06-14-2022 End: 06-14-2022 ambulatory Celso Colon Other [facility] Other Start: 06-14-2022 Office outpatient vi sit 15 minutes Celso Colon [facility] Start: 06-14-2022 Telephone encounter Celso Colon [facility] Start: 01-22-2022 End: 01-23-[address] CELSO COLON Facility:[facility] Start: 12-08-2021 End: 12-09-[address] CELSO COLON Facility:[facility] Plan of Treatment Date Care Activity Detail Author Bacteria identified in Urine by Culture [facility] Comprehensive metabo lic 2000 panel - Serum or Plasma [facility] enter [facility] Immunizations Immunization Date Immunization Notes Care Provider Fa cility 02-16-2017 influenza virus vaccine, unspecified formulation [facility] 02-16-2017 influenza, high dose seasonal, preservative-free Celso Colon Other [facility] Other 01-14-2016 influenza virus vaccine, unspecified formulation [facility] 01-14-2016 influenza, high dose seasonal, preservative-free Celso Colon Other [facility] Other Payers Date Payer Category Payer Medicare [id number] 2. [id number] 1950 Unknown [id number] 1950 Unknown [id number] 1950 Unknown [id number] 1950 Unknown [id number] Social History Date Type Detail Facility Unknown if ever smoked [facility] Other Sex Assigned At Sex Assigned At Bir th [facility] Other Start: 12-14-2023 Tobacco smoking status NHIS Never smoked tobacco (finding) [facility] Start: 1950 Sex Assigned At Male F [facility] Start: 09-26-2024 Sex Male (finding) [facility] Clinical Notes 10-08-2008 to 01-17-2023 Note Date & Type Note Facility 01-17-2023 Evaluation note Encounter Date Diagnosis Assessment Notes Jan, Essential (primary) hypertension (ICD-10 - I10) At this time his blood pressure is not as controlled as we would like to see. I would like to increase his Losartan to 50 MG a day. He can take 2 of the 25 MG tablets together a day until he runs low and then can take 50 MG daily. He is to continue with the Metoprolol and Norvasc (1/2 tablet daily). I did provide him with a refill on Losartan today. Jan, Other abnormal blood chemistry (ICD-10 - R79.89) His BUN is 21. Creatinine is 1.16. EGFR is >60. Encouraged him to increase his intake of water daily. Jan, Edema (ICD-10 - R60.9) He is not taking Klor Con due to being on Losartan. He does continue with the Furosemide. He voices that his leg swelling is doing very well right now. Jan, Hyperglycemia (ICD-10 - R73.9) His blood sugar was 142 when checked. He voices that since last seen he did cut out the candy bar and is not eating these every day. I did recommend that he continue to avoid the candy bars. Watch intake of carbs and sugars. Stay active. [facility] Other 08-30-2023 Evaluation note* Encounter Date Diagnosis Assessment Notes Treatment Notes Treatment Clinical Notes Nov, Essential (primary) hypertension (ICD-10 - I10) control not to goal He voices that he is taking 1/2 tablet of Norvasc daily and the Metoprolol daily. We discussed that his blood pressure in the office is not controlled. I would like to see his blood pressure lower. He did sleep well last night, voices that he does not have any trouble sleeping. I did recommend that we add a medication that will help to lower his blood pressure and explained that this one will raise his potassium so he will not need raise his Klor Con. Guidance is given on how to take the Losartan, will start him on a low dose and explained that we can titrate the dose if needed. He should take this in the morning. This is in addition to his other two medications. He will need to have lab drawn in about two to three weeks to check his potassium level. I will see him back in one month to re-evaluate BP. Nov, Hyperglycemia (ICD-10 - R73.9) The Metformin caused him to have itching, he did stop the medication and restarted it and then had to stop it again. His glucose is 138. HgA1C is 6.3 up from 6.2. I would like to see his A1C at 5.5 or below. He voices that his itching seemed to come from his lower legs and the edema that he had. He is willing to restart the Metformin and see if this causes itching again. He is to try the Metformin and also avoid as much sugar as he can in his diet. Avoid bread, pasta, sugars, sweets etc. Eat more protein, dark green vegetables. Stay active. He is to keep me posted with how he is doing on the Metformin. His snacks should be protein based. I did recommend that he take the Metformin on Tue, Tue and Tuesday for a few weeks and if doing well then he can go up to every day. Nov, Hyperlipidemia (ICD-10 - E78.5) Discussed cholesterol results with patient today. Total is 186. HDL is 59. LDL is 109.2. Triglycerides are 89. VLDL is 17.8. I did recommend that he continue to monitor his intake of carbs and sugars. Stay active. Nov, Premature beat (ICD-10 - I49.49) An EKG was done in the office today which showed sinus rhythm with frequent PACs. I did review this with him today. All questions he has were answered. He has not had any caffeine yet today. This is not concerning. Reassurance given. Nov, Vitamin B12 deficiency (ICD-10 - E53.8) He has not been taking B12 and I did recommend that he re-start this medication. His Vitamin B12 level is 289. Folate is 11.80. Nov, Edema (ICD-10 - R60.9) The Furosemide is working very well for his edema. He is taking the Klor Con every other day instead of when he takes the Furosemide. His potassium level is 4.2. Importance of potassium is discussed. I am going to add a new BP medication that will hold his potassium so for now he should not take the Klor Con. Nov, Gastro-esophageal reflux disease without esophagitis (ICD-10 - K21.9) He is provided with a refill on above medication today. Nov, Other abnormal blood chemistry (ICD-10 - R79.89) Discussed his kidney studies today. BUN is 16. Creatinine is 1.08. EGFR is >60. He is to continue to stay well hydrated with plenty of water daily. Nov, Stasis dermatitis of both legs (ICD-10 - I87.2) Noted on exam. Nov, Weight loss (ICD-10 - R63.4) He has lost 7 pounds since last seen. His TSH is normal at 1.357. Nov, Other intermediate (current) drug therapy (ICD-10 - Z79.899) Nov, Nocturia (ICD-10 - R35.1) Nov, Elevated PSA (ICD-10 - R97.20) His total PSA is 1.2. Free PSA is 0.29. % Free PSA is down from 28.3 to 24.2. No sign of prostate cancer at this time. Will continue to monitor. [facility] Other 04-06-2023 Evaluation note* Encounter Date Diagnosis Assessment Notes Treatment Notes Treatment Clinical Notes Jul, Other intermediate (current) drug therapy (ICD-10 - Z79.899) [facility] Other 02-27-2023 Evaluation note* Encounter Date Diagnosis Assessment Notes Treatment Notes Treatment Clinical Notes May, Essential (primary) hypertension (ICD-10 - I10) [facility] Other 02-27-2023 Evaluation note* Encounter Date Diagnosis Assessment Notes Treatment Notes Treatment Clinical Notes May, Edema (ICD-10 - R60.9) He voices that he has lower extremity edema but today it is actually better than it was. His legs are better in the mornings. I did explain to him that anytime his legs hang below his heart it will cause his legs to fill with fluid. When he is able he should sit with his legs elevated above his heart. I want to switch his Amlodipine but first will rid excess fluid so will start him on a diuretic. In one week I want him to have lab drawn to check his potassium and kidney levels. He is instructed to take the Potassium with the Lasix, he cannot take one without the other. I did advise him to weigh himself and then watch his weight daily after he starts the Potassium and Lasix to see how much water weight he is losing. He voices that he has to sleep with his head elevated in bed but this is not new for him. The sore on his right lower leg should heal once he has rid the excess fluid. May, Stasis dermatitis of both legs (ICD-10 - I87.2) May, Essential (primary) hypertension (ICD-10 - I10) In the past he was on a diuretic but this irritated his kidney studies. Because of his edema, I will cautiously start him on a diuretic. He has an upcoming vacation and I did advise him to avoid taking the medication that morning. He needs to make sure that he gets up and walks to keep the blood circulating. He admits to having some shortness of breath but feels this is due to deconditioning and not being active. He voices that he does not want to do any work up for the shortness of breath right now. He voices that if he runs up the steps he becomes short of breath. I suspect that once he begins losing this excess water weight this shortness of breath will improve. We agreed that he needs to get rid of this excess fluid before making any other medication changes. I asked him to keep me posted with how he is doing, anticipate that we will need to stop his Amlodipine and put him on Cardizem CD 180 MG daily. May, Rash and nonspecific skin eruption (ICD-10 - R21) He has a rash on his upper extremities, and we discussed that the swelling could be irritating his nerves. He has very dry skin, he voices that he puts Vaseline intensive care lotion on his skin for a while and then stops. I asked him to apply this daily to help keep his skin moisturized. The itching should improve. May, Weight gain (ICD-10 - R63.5) He has gained seven pounds since last seen. May, Hyperglycemia (ICD-10 - R73.9) He voices that he had stopped the Metformin because he had itching with it, he stopped the medication for a short time and then did restart it but one week ago he stopped the medication again. [facility] Other 02-27-2023 Evaluation note* Encounter Date Diagnosis Assessment Notes Treatment Notes Treatment Clinical Notes May, Essential (primary) hypertension (ICD-10 - I10) May, Edema (ICD-10 - R60.9) May, Gastro-esophageal reflux disease without esophagitis (ICD-10 - K21.9) May, Vitamin B12 deficiency (ICD-10 - E53.8) [facility] Other 06-23-2009 History general Narrative - Reported* Type Description Date Medical History 2008 psa level, 0.377 Medical History 2008 ekg done Medical History no colonoscopy Medical History no stress test Medical History no ct scan Medical History stools for occult blood negative x3 October 08, 2008 Medical History refuses colonoscopy and seracult cards x3 04-15-11 Medical History refuses stress test 04-15-11 Medical History blood work 04/15/11 Medical History refuses colonoscopy, stress test , EGD 06-23-12 Medical History Tetanus Injection Th e [facility] 09-26-12 (cut left wrist with a saw blade) [facility] History Refuses Colonoscopy & Rectal Exa m 09-21-13 Medical History FOBT Negative 08/03/14 Medical History Refuses Colonoscopy 11-19-14 Medical History HYPERTENSION Surgical History scope right and left knee; Dr. Morrison Surgical History knee replacement partial b/l [facility] Other 06-23-2009 History general Narrative - Reported* Type Description Date Medical History 2008 psa level, 0.377 Medical History 2008 ekg done Medical History no colonoscopy Medical History no stress test Medical History no ct scan Medical History stools for occult blood negative x3 October 08, 2008 Medical History refuses colonoscopy and seracult cards x3 04-15-11 Medical History refuses stress test 04-15-11 Medical History refuses colonoscopy, stress test , EGD 06-23-12 Medical History Tetanus Injection Th e [facility] 09-26-12 (cut left wrist with a saw blade) Medical History EKG, [facility]R [facility] Medical History Refuses Colonoscopy & Rectal Exa m 09-21-13 Medical History FOBT Negative 08/03/14 Medical History Refuses Colonoscopy 11-19-14 Medical History HYPERTENSION Surgical History scope right and left knee; Dr. Morrison Surgical History knee replacement partial b/l [facility] Other Evaluation note* Diagnosis Onset Date Resolution Status Anemia acute Elevated PSA acute Essential (primary) hypertension acute Gastro-esophageal reflux disease without esophagitis acute Hyperlipidemia acute Loss of taste acute Type 2 diabetes mellitus without complications acute [facility] Work Phone: Evaluation noteNo assessment information available [facility] Work Phone: Summary Purpose Family History Relationship Condition Age at Onset Recorded Date/T nuvia father Unknown grandparent Unknown mother Heart disease Unknown Unknown Advance Directives Advance Directive Response Recorded Date/ Time Advance Directives No May 26, 2023 12:58pm Chief Complaint and Reason for Visit Chief Complaint Amb Documentation review labs Reason for Visit Anemia Elevated PSA Essential (primary) hypertension Gastro-esophageal reflux disease without esophagitis Hyperlipidemia Loss of taste Type 2 diabetes mellitus without complications Chief Complaint Admit Date Cough, congestion September 26, 2024 9:29 am Additional Source Comments REASON FOR VISIT (unrecogniz ed section and content) Clinicalb/l leg swelling/flu id drainageClinicalrefillsClinicalRefillsClinical Acute Medicinereview labClinical1 mo recheck BP (unrecognized sect ion and content) No Status Records Found INFORMATION SOURCE (unrecogn ized section and content) DATE CREATED AUTHOR 07/31/2022 [facility] Care Teams (unrecognized sec tion and content) Team Status: Active Member Role Status Dates Celso Colon DO Primary Care Provider Active Team Status: Inactive Member Role Status Dates Celso Colon , DO Primary Care Provider Active S tart: September 26, 2024 End: September 26, 2024 Teena Aparicio APRN Attending Provider Active Start: September 26, 2024 End: September 26, 2024 Team Status: Active Member Role Status Dates Celso Colon , DO Primary Care Provider Active Team Status: Active Member Role Status Dates Cody Garzon MD Primary Care Provider Active Start: October 31, 2023 TAD Cruz Attending Provider Active S tart: October 31, 2023 Team Status: Active Member Role Status Dates Celso Colon , DO Primary Care Provide r, Attending Provider Active Start: December 12, 2023 Team Status: Inactive Member Role Status Dates Celso Colon , DO Primary Care Provide r, Attending Provider Active Start: December 14, 2023 End: December 14, 2023 Team Status: Inactive Member Role Status Dates Celso Colon , DO Primary Care Provider Active S tart: September 26, 2024 End: September 26, 2024 Teena Aparicio APRN Attending Provider Active Start: September 26, 2024 End: September 26, 2024 Goals (unrecognized section and content) Goals may be documented in a n alternate section FOR RECORDS PERTAINING TO PATIENTS WHO ARE OR HAVE BEEN ENROLLED IN A CHEMICAL DEPENDENCY/SUBSTANCEABUSE PROGRAM, SOME INFORMATION MAY BE OMITTED. This clinical summary was aggregated from multiple sources. Caution should be exercised in using it in the provision of clinical care. This summary normalizes information from multiple sources, and as a consequence, information in this document may materially change the coding, format and clinical context of patient data. In addition, data may be omitted in some cases. CLINICAL DECISIONS SHOULD BE BASED ON THE PRIMARY CLINICAL RECORDS. [employer] [facility]. provides no warranty or guarantee of the accuracy or completeness of information in this document.
[2024-12-15 07:08] LABS: Hematocrit 43.0 % (42.0-54.0); Hemoglobin 14.6 g/dL (14.0-18.0); Immature Granulocytes Abs Auto 0.03 10^3/uL (0.00-0.03); Immature Granulocytes Pct Auto 0.4 % (0.0-0.5); Lymphocytes Absolute Auto 1.3 10^3/uL (1.2-3.8); Mean Corpuscular HGB Conc 34.0 g/dL (29.9-35.2); Mean Corpuscular Hemoglobin 30.7 pg (25.9-34.0); Mean Corpuscular Volume 90.3 fL (80.0-94.0); Platelet Count 161 10^3/uL (150-450); Red Blood Count 4.76 10^6/uL (4.70-6.10); White Blood Count 7.1 10^3/uL (4.0-11.0)
[2024-12-15 07:41] LABS: Alanine Aminotransferase 9 U/L (16-63); Albumin Globulin Ratio 0.8; Albumin Level 3.5 g/dL (3.4-5.0); Alkaline Phosphatase 93 U/L (46-116); Anion Gap 14.0; Aspartate Amino Transferase 10 U/L (15-37); Blood Urea Nitrogen 16.0 mg/dL (7.0-18.0); Calcium 8.8 mg/dL (8.5-10.1); Carbon Dioxide 28.4 mmol/L (21.0-32.0); Chloride 99 mmol/L (98-107); Cholesterol 180 mg/dL (<=200); Estimated GFR (African America >60 (>=60 mL/min/1.73m^2); Estimated GFR (Non-African Ame >60 (>=60 mL/min/1.73m^2); Globulin 4.3 g/dL; Glucose 160 mg/dL (74-106); HDL Cholesterol 63 mg/dL (40-60); Potassium 4.4 mmol/L (3.5-5.1); Sodium 137 mmol/L (136-145); Thyroid Stimulating Hormone 1.398 uIU/mL (0.358-3.740); Total Protein 7.8 g/dL (6.4-8.2); Triglycerides 75 mg/dL (<=150); VLDL CHOLESTEROL 15.0 mg/dL
[2024-12-15 08:51] LABS: Glucose Urine UA NEGATIVE (NEGATIVE)
[2024-12-15 09:32] LABS: Cast Seen? NONE SEEN #/LPF (NONE SEEN); Crystals Seen? None Seen #/HPF (None Seen)
[2024-12-15 09:51] LABS: Folate 12.70 ng/mL (8.60-58.90)
[2024-12-16 07:07] LABS: PSA, Free 0.29 ng/mL
[2024-12-16 08:08] LABS: Vitamin B12 730 pg/mL (232-1245)
== END 2024-12-15 06:35 | disposition home or self-care (01) ==
LOC: LAB 06:44
PROVIDERS: PCP Family Medicine; Visit Provider Family Medicine
DX: Z79.899 Other long term (current) drug therapy (principal); R35.1 Nocturia; E78.5 Hyperlipidemia, unspecified; E11.9 Type 2 diabetes mellitus without complications; R97.20 Elevated prostate specific antigen [PSA]; D64.9 Anemia, unspecified; R63.5 Abnormal weight gain
CPT/HCPCS: 36415; 80053; 80061; 81001; 82607; 82746; 83036; 84153; 84154; 84443; 85025; 87086

== ENCOUNTER 2025-04-03 10:22 | Emergency (ER) | payer MEDICARE, SELFPAY ==
[2025-04-03] VITALS (19 sets, daily range): BP systolic 175–229; BP diastolic 91–112; PULSE 57–65; TEMP 36.5; O2SAT 91–100; BMI 47.0
--- OUTSIDE RECORDS SUMMARY | 2025-04-03 05:06 | XMS_ITS | Continuity of Care Document ---
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 Role Phone Constantino Lomax DO Primary Care Provider [phone] Teena Aparicio APRN Attending Provider Care Teams Patient Care Team Team Status: Active Member Role/Relationship Status Dates Constantino Lomax DO Primary Care Provider Active Visit Care Team Team Status: Inactive Member Role/Relationship Status Dates Constantino Lomax DO Primary Care Provider Active S tart: April 03, 2025 End: April 03, 2025Patti Rodgers ProviderActiveStart: April 03, 2025 End: April 03, 2025 Visit Care Team Team Status: Active Member Role/Relationship Status Dates Constantino Lomax DO Primary Care Provider Active S tart: April 03, 2025 Patti Rodgers ProviderActiveStart: April 03, 2025 Chief Complaint and Reason for Visit Chief Complaint Admit Date congestion, cough April 03, 2025 9:08am Allergies, Adverse Reactions, Alerts Allergen Type Severity Reaction Last Updated Verified Status No Known Allergies Allergy Unknown April 03, 2025 9:10amYesActive Social History Smoking Status Status Start Date End Date Date of Observa tion Never smoked tobacco (finding) December 18, 2024 10:57am Observation Status Observation Response Date of Response Legal Sex Male (finding) Sex Assigned At BirthMaleJuly 1950 Family History Relationship Condition Age at Onset Recorded Date/T nuvia father Unknown grandparentDeceasedUnknowngrandparentDeceasedUnknowngrandparentDeceasedUnknown grandparentDeceasedUnknownmotherHeart diseaseUnknownDeceasedUnknownmotherHeart diseaseUnknown Problems Active Problems Problem Diagnosis/Recorded Date Onset Date Stat us Elevated PSA December 14, 2023 7:42am Unknown Act shahida Body mass index [BMI] 45.0-49.9, adult December 18, 2024 10:35am Unknown Active 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 December 13 7:47am Unknown Active Type 2 diabetes mellitus wit hout complications December 14, 2023 7:36am Unknown Active Loss of taste December 14, 2023 8:00am Unknown Ac tive Nocturia December 14, 2024 10:17am Unknown Ac tive Anemia December 13, 2023 1:05pm Unknown Act shahida Cough April 03, 2025 9:31am Unknown A ctive Hyperlipidemia December 13, 2023 1:05pm Unknown A ctive Weight gain December 18, 2024 10:21am Unknown Active Essential (primary) hypertension December 13, 2023 1:0 5pm Unknown Active Gastro-esophageal reflux dis ease without esophagitis December 13, 2023 1:05pm Unknown Active Shoulder pain, bilateral December 18, 2024 10:14am U nknown Active Acute lower respiratory infection September 26, 2024 10:0 3am Unknown Active Medications Medication Status Dose Units Route Directions Qty Days Refills S tart Date Stop Date End Date Reason(s) Instructions Adherence Furosemide 40 mg tablet Discontinued 0 .ROUTE.ZYXFPJS214Xvfb 2023 9:21amOctober 2023 10:54amTAKE 1 TABLET EVERY MORNINGMetformin 500 mg tablet extended release 24 viJfwyoyfngjkb666REJT Every paniidx93457Vszcavqaj 2nd, 2024 11:00pmSept2024 9:55amtake 2 (500 mg) tablets with evening mealFurosemide 40 mg tabletDiscontinued0.ROUTE .WQZOJTD602Cbzwlbe 2023 10:53amMay 2024 8:47amTAKE 1 TABLET EVERY MORNINGLosartan 50 mg sizpmuCvkdfcxekgbu96VIAXFnvlm370Dkamvke 2023 10:54am September 04, 2024 8:47amAmlodipine (Norvasc) 10 mg aobjecUgorfnqgmscf2CIArdri February 13, 2024 10:54amOctober 2023 10:54amtake 1/2 of a 10 MG tablet orally daily;Amlodipine (Norvasc) 10 mg bdnkfzSujahvwhwvat7LTMudqm765Dfyjebz 2023 10:54amMay 2024 8:47amtake 1/2 of a 10 MG tablet orally daily; Metoprolol Succinate 100 mg tablet extended release 24 gpFsokqnzlwsml642OIOI Qufcm031Dwuduxwf 2023 10:18amNovember 2024 9:07amAmlodipine (Norvasc) 10 mg ynwvlmOppmypgcyvyx1OUNjnka654Qfl 2024 8:47amNovember 2024 9:19amtake 1/2 of a 10 MG tablet orally daily;Furosemide 40 mg tablet Active0.ROUTE.VJLDSUK661Bke2024 8:47amTAKE 1 TABLET EVERY MORNINGUnknown Losartan 50 mg pzkkfbAgghup86DIFKPzyvz677Ywk 20th, 2025 8:47amUnknownAmlodipine (Norvasc) 10 mg xfysylImiigvyupqft3SDZogcu559Kjneqmmd 10th, 2025 9:18amNovember 2024 9:32amtake 1/2 of a 10 MG tablet orally daily;Amlodipine (Norvasc) 10 mg xnmucdHiqaod9HQOklxp580Bcdpnmjy 10th, 2025 9:32amtake 1/2 of a 10 MG tablet orally daily;UnknownMetoprolol Succinate 100 mg tablet extended release 24 hr Active0.ROUTE.VQUXZXT432Zaofaplc 2024 9:07amTAKE 1 TABLET DAILYUnknown Metoprolol Succinate 100 mg tablet extended release 24 fvUcrhunrtuqsd707COFX .COMPLEXJuly 2023 11:00pmDecember 2023 10:39pg025 mg orally 1 tablet with evening meal Orally Once a day;Amlodipine (Norvasc) 10 mg tablet Ezuaxewoagwn7OKMjaahRmpn 14th, 2024 11:00pmOctober 2023 10:54am1/2 tablet (0.5) mg daily orally daily;Furosemide 40 mg mvligbUlfdvatycxqe12YIED.COMPLEX October 30, 2023 11:00pmJuly 15th, 2024 9:22am40 mg orally ;TAKE 1 TABLET BY MOUTH ONCE EVERY MORNING;Losartan 50 mg kbrwcyCqmwubaofmav41KPFEHpcrkNpme 2023 11:00pmOctober 2023 10:54amMetformin 500 mg tablet extended release 24 aaNdtlhbcooftb333GKYL.COMPLEXJuly 2023 11:00pmAugust 2023 7:52am 500 mg orally 1 tablet with evening meal Orally Once a day;Omeprazole 20 mg capsule,delayed release(DR/EC)Rahvrxhsvyhv53WMOLAqgldSxnv 2023 11:00pm December 14, 2023 7:55amAlbuterol Sulfate 90 mcg/actuation HFA aerosol inhaler Jizqqnotnxqs5CPSMIIPYQXPBREAYIYI 4-6 HOURS as needed for shortness of breath or wheezing8.50June 2024 11:00pmSept2024 9:53amPrednisone 20 mg vbdvauAsbvbapbymqk42QWYT.YNDQIGB275Ahoy 2024 11:00pmSeptember 2024 9:55amTake 2 tabs po daily x 5 daysDoxycycline Hyclate 100 mg capsule Dsvrjsbauggs833SVNBAfmbo hwzpk47183Uetz2024 11:00pmSept2024 9:54amMetformin 500 mg tablet extended release 24 uwAswiobvypsxf4189TWLXTsafg ezkfobi287776Zrlkhfdyu 2nd, 2025 9:55amSeptember 2024 10:12amtake 2 (500 mg) tablets with evening mealMetformin 500 mg tablet extended release 24 hr Nwaqvcxegtdg3ILRelia lfpwfzj134860Obslmovix 2nd, 2025 10:10amSeptember 2024 10:37amtake 2 (500 MG) tablets orally every evening;Metformin 500 mg tablet extended release 24 elXmqnmh2GRYkeyn nhxazya245167Woywqsfsq 2024 10:34am take 2 (500 MG) tablets orally every evening;UnknownOmeprazole 40 mg capsule,delayed release(DR/EC)Xmzkwt37NWSXHfdyp384Lyjiegvpf 2nd, 2025 10:34am *take 15 min prior to a mealUnknownMecobalamin (Vitamin B12) 1,000 mcg tablet,qeyurdmhGuiirf0574PEYBPVykxpOdjwdu 2023 11:00pmUnknownMetformin 1,000 mg tablet extended release 24 qrFeiblybskeow3147OCPNIikby uapggqf082Bxkojf2023 11:00pmDecember 20, 2023 12:27pm*with PM mealOmeprazole 40 mg capsule,delayed release(DR/EC)Lgvxsczwcgox48BQJFFnvwb081Qsczot 27th, 2024 11:00pmDecember 18, 2024 10:37am*take 15 min prior to a meal Immunizations Immunization Event Date Not Given Reason Dose Number Pharmacist In Charge Lot Number Reason(s) Given Vaccine Information Statement (VIS) Detail Administration Location influenza, unspecified formulation December influenza, unspecified formulationFebruary 16, 2017 Procedures Procedure Date Performed Status XR chest 2V* April 03, 2025 12:00am comp leted Relevant Diagnostic Tests and/or Laboratory Data Laboratory Results Test Collection Date/Time Result Date/Time Result Interpretation Reference Range Result Comment Performing Site POC SARS CoV-2 Antigen April 03, 2025 9:32a m April 03, 2025 10:04am Negative Influenza Type A (Rapid)April 03, 2025 9:32amDe2024 10:04am NegativeInfluenza Type B (Rapid)April 03, 2025 9:32amDe2024 10:04amNegative Diagnostic Imaging Reports Author Bonilla Knight [facility] HospitalAuthoredDe 2024 9:50amReport Dictated Date/TimeDictated ByStatusRadiology ReportDece2024 9:50am Bonilla Knight Jr DOcompleteG[facility] [place] [address] XRay Report Signed Patient: Madhu Madison MR#: [id number] : 1950 Acct:[id number] Age/Sex: 74 / M ADM Date: 5 [facility] Type[facility] Attending Dr: Teena Aparicio APRN Copies to: Teena Aparicio APRN~ Ordering Provider: Teena Aparicio APRN Date of Service: 04/03/25 XR/XR chest 2V*: COUGH, SOB Chest 2 views CLINICAL HISTORY: Productive cough shortness of breath fatigue and weakness for one week COMPARISON: None FINDINGS: Cardiomegaly with vascular congestion. No lung consolidation or pneumothorax. Trace bilateral pleural effusions. No pneumothorax or free air. XR/XR chest 2V* IMPRESSION: CHF FINDINGS. NO CONSOLIDATION TO SUGGEST PNEUMONIA. Impression dictated by: Bonilla Knight Jr., D.O. 04/03/2025 9:51 AM Dictation Location: LiveRe-PC-22 Transcribed By: PWS 04/03/25 0951 Dictated By: Bonilla Knight Jr, DO 04/03/25 0950 Signed By: <Electronically signed by Bonilla Knight Jr, in OV> 04/03/25950 Vital Signs Vital Reading Result Reference Range Collection Date/Time Height 66 [in_i] April 03, 2025 9:76huLlwikf911.88 kgDecember 2024 9:17amBody Qanbbydjajd40 [degF]97.6-99.0December 2024 9:17amHeart Rate63 /vck66-601 April 03, 2025 9:17amRespiratory rate18 /gsm15-75Nizodeyb 2024 9:17am Oxygen saturation by Pulse ephqbdhr29 %95-100Dece2024 9:17amBP Idegkapa879 mm[Hg]100-140December 2024 9:17amBP Xmodbdspw15 mm[Hg]60-100 April 03, 2025 9:17amBMI (Body Mass Index)50.8 kg/y3Zcbnsrio 2024 9:17am Advance Directives Advance Directive Response Recorded Date/ Time Advance Directives No May 26, 2023 11:58am Insurance Providers Guarantor Madhu Madison Address [address] [place] [address] Info.Home Phone: Payer Group Member ID Coverage Type Subscriber Relationship to Subscriber Effective Date Expiration Date [facility]: [id number] A Sumser Id: [id number] [place] [address] Home Phone: self Encounters Encounter Location(s) Arrival/Admit Date Discharge/Departure Date Discharge/Departure Disposition Provider(s) Departed Physician/ Provider Office Visit -[facility] [place] April 03, 2025 9:08am April 03, 2025 10:05am Discharged to home care or self care (routine discharge) Hannah Camargo APRN Registered Clinical -[facility] [place] March 182024 9:32am Hannah Camargo APRN Plan of Treatment Future Tests Future scheduled test information is unavailable Pending Tests Test Name Ordered Date Scheduled Date XR chest 2V* April 03, 2025 9:31am Future Visits Future appointment information is unavailable Future Procedures Future procedure information is unavailable Future Medications Future medication information is unavailable Patient Instructions Patient instructions are unavailable
--- NOTE | 2025-04-03 10:42 | ECG_ITS ---
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 Measurements Intervals [place] Rate: 63 P: 3 DC: 174 QRS: 54 QRSD: 88 T: 64 QT: 412 QTc: 418 Interpretive Statements 1100 Sinus rhythm 9110 normal ECG No previous ECG available for comparison Electronically Signed On 04-03-2025 20:55:36 EST by ANA PAULA DAMON M.D.
--- NOTE | 2025-04-03 10:42 | XR_ITS ---
The [address] [address] Patient Name: VIVI RAMON MRN: [id number] date: 1950 Sex: M Assigned Patient Location: ED.MAIN Current Patient Location: ED.MAIN Accession/Order Number: [id number] Exam Date: 04/03/2025 11:10 Report Date: 04/03/2025 11:26 At the request of: HATTIE JACOBO DO Procedure: XR chest 1V PORTABLE AP ERECT CHEST 1049 hours CLINICAL HISTORY: Shortness of breath over the past 1-2 weeks. Syncopal episode last weekend COMPARISON: None Evaluation is slightly limited by large body habitus. There is also lordotic positioning. The heart is borderline prominent. There is no suspected vascular congestion. The left hemidiaphragm is not well seen and adjacent pleural parenchymal change is not excluded without a lateral view. There is also possible blunting of the lateral right costophrenic angle and groundglass density at the lung base medially. No pneumothorax is identified. Degenerative change are visualized at the spine and shoulders. XR/XR chest 1V IMPRESSION: SLIGHTLY LIMITED STUDY. BORDERLINE CARDIOMEGALY. QUESTION OF BIBASILAR PLEURAL-PARENCHYMAL CHANGE. IF WARRANTED, A 2 VIEW STUDY MAY BE HELPFUL FOR COMPLETE EVALUATION. Impression dictated by: Maday Blackwell M.D. 04/03/2025 11:26 AM Dictation Location: [place] [address] Electronically authenticated by: [id number] Y Date: 04/03/2025 11:26
[2025-04-03 10:48] LABS: Hematocrit 42.1 % (42.0-54.0); Hemoglobin 14.1 g/dL (14.0-18.0); Immature Granulocytes Abs Auto 0.03 10^3/uL (0.00-0.03); Immature Granulocytes Pct Auto 0.4 % (0.0-0.5); Lymphocytes Absolute Auto 0.8 10^3/uL (1.2-3.8); Mean Corpuscular HGB Conc 33.5 g/dL (29.9-35.2); Mean Corpuscular Hemoglobin 30.7 pg (25.9-34.0); Mean Corpuscular Volume 91.7 fL (80.0-94.0); Platelet Count 182 10^3/uL (150-450); Red Blood Count 4.59 10^6/uL (4.70-6.10); White Blood Count 8.6 10^3/uL (4.0-11.0)
--- OUTSIDE RECORDS SUMMARY | 2025-04-03 10:53 | XMS_ITS | Clinical Summary ---
Author Organization [facility] Address [address] [place] [address] Care Team Providers Care Resolution Analyst Name Role Phone Constantino Lomax DO Primary Care Provider [phone] Allergies No known active allergies Medications MedicationSigDispense QuantityRefillsLast FilledStart DateEnd DateStatus bisoprolol-hydrochlorothiazide (ZIAC) 10-6.25 mg per tablet Take 1 tablet by mouth once daily.ctive Omeprazole Magnesium (PRILOSEC OTC) 20 mg tablet Take 1 tablet by mouth once daily.ctive amLODIPine 5 mg tablet Take 2 tablets by mouth once daily.ctive Active Problems ProblemNoted DateDiagnosed VowkLnxuqyoysovdg35/09/2015OA (osteoarthritis) of knee03/29/2013Knee pain03/29/2013Unspecified essential zyznzymlxgxo78/12/2013 GERD (gastroesophageal reflux disease)03/29/2013Habitual alcohol use03/29/2013 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), without mention of drnwpvemznce38/06/2008 Family History Medical HistoryRelationCommentsCOPDFatherDECEASEDCoronary Artery DiseaseMother DiabetesMotherHypertensionMotherRelationStatusCommentsFatherMother Social History Tobacco UseTypesPacks/DayYears UsedDateSmoking Tobacco: NeverSmokeless Tobacco: NeverAlcohol UseStandard Drinks/WeekCommentsYes0 (1 standard drink = 0.6 oz pure alcohol)Everyday drinker, beer-- 6/DAY.Sex and Gender InformationValueDate RecordedSex Assigned at BirthNot on fileLegal JisJjpo59/02/2012 8:12 AM EST Gender IdentityNot on fileSexual OrientationNot on fileOccupationIndustryJob Start DateJob End DateRETIREDNot on fileNot on fileNot on file Last Filed Vital Signs Vital SignReadingTime TakenCommentsBlood Axwqppsh170/7405/29/2013 6:15 AM EST Njmtz459605/29/2013 6:15 AM VBMUavddajybvi73.9 ??C (98.5 ??F)05/29/2013 6:15 AM ESTRespiratory Juxg124905/29/2013 6:15 AM ESTOxygen Cxccsfgwdb27%05/29/2013 6:15 AM ESTInhaled Oxygen Concentration--Tpqhfd304.3 kg (230 lb)05/28/2013 9:07 AM QQEJvnjrf421.2 cm (5' 7 )05/28/2013 9:07 AM ESTBody Mass Index36.02005/28/2013 9:07 AM EST Plan of Treatment Health MaintenanceDue DateLast DoneCommentsAnxiety Udisdawts93/06/1968Depression Ebaxkbiji08/06/1968Hepatitis C Yvctyyokk28/06/1968DTaP,Tdap,Td Vaccine (1 - Tdap)1968Lipid Sgllpszes91/06/1985CT Quaqddzrcluq91/06/1995Cologuard (FIT-DNA)10/21/19945295Pxiwsjwdvug15/06/1995Colorectal Cancer Daujnfpas02/06/1995 Fecal Occult Blood10/21/19946287Vbnrpcjrionxj33/06/1995Pneumococcal Vaccine: 50+ (1 of 1 - PCV)10/22/1999Shingrix Vaccine (1 of 2)10/22/1999Diabetes Screening dvance Directive Dqazilovkd56/01/2025RSV Vaccine (1 - 1- dose 75+ series)2024ovid-19 Vaccine (1 - 2024-26 season)2024 Influenza Vaccine (#1)2024 Medical Devices ImplantedTypeAreaManufacturerDevice IdentifierShelf Expiration DateModel / Serial / LotCem Bn Co Hv 40gm - [id number] Implanted:Qty: 1 on 05/03/2013 at [facility] / PuttyLeft: Bone - XymhZKILZO75/30/[id number] / / [id number] Bn Co Hv 40gm - [id number] Implanted:Qty: 1 on 05/28/2013 at [facility]ement / PuttyRight: Bone - VrdnFZJYMU15/30/[id number] / / [id number] Implanted:Qty: 1 on 05/03/2013 at [facility] FHCImplantLeft: Bone - Knee [id number] / / [id number] Xs Uni Twin Femoral Cemen - [id number] Implanted:Qty: 1 on 05/28/2013 at [facility] - Knee BIOMET ORTHO04/17/[id number] / / [id number] Vngrd M Oxfd Cocr Mlbdn - [id number] Implanted:Qty: 1 on 05/03/2013 at [facility] - KneeLeft: Bone - LtrqFPKXAI87/30/[id number] / / [id number] 3mm Oxfd Arcm Lt Kn - [id number] Implanted:Qty: 1 on 05/03/2013 at [facility] - KneeLeft: Bone - EcrpWDONJK08/30/[id number] / / [id number] Vngrd M Oxfd Cocr Mlbdn - [id number] Implanted:Qty: 1 on 05/28/2013 at [facility] KneeRight: Bone - GfypGSCKYF81/30/[id number] / / [id number] 3mm Oxfd Rt Menis Kn Shirley - [id number] Implanted:Qty: 1 on 05/28/2013 at [facility] KneeRight: Bone - KwybGGASUU44/31/[id number] / / [id number] Procedures Procedure NamePriorityDate/TimeAssociated DiagnosisCommentsBASIC METABOLIC PANEL Mmiwogd7503/29/2013 9:57 AM EST OA (osteoarthritis) of knee from Last 3 Months or Most Recently Relevant to Health Maintenance Results * (ABNORMAL) BASIC METABOLIC PNL (03/29/2013 9:57 AM EST)ComponentValueRef Range Test MethodAnalysis TimePerformed AtPathologist QpmtrscbjLvtlkhn322(H)65 - 100 mg/dLCLEVEL[facility] LMBOCOWAKWJWZ4182 - 25 mg/dLCLEVELAND [facility]IC [facility] LABORATORYCreatinine1.050.70 - 1.40 mg/dLCLEVELAND CLINIC MERCY HOSP[facility] LABORATORY Cmnkpg160627 - 146 mmol/LCLAKEHEALTH [facility]ACHWO[facility] LABORATORYPotassium4.33.5 - 5.0 mmol/LCLAKEHEALTH BEACHWOOD [facility]ENTER MVCUOHDKKWPxgyyazl33388 - 110 mmol/LCLAKEHE[facility] WUKHWDJXUPLJ43298 - 32 mmol/LCLAKEHEALTH [facility]ACHWO[facility] LABORATORYAnion Glc385 - 15 mmol/LCLAKEHEALTH BEACHWOOD MED[facility] LABORATORYCalcium9.38.5 - 10.5 mg/dL [facility] LABORATORYeGFR->60[facility] LABORATORYeGFR-All Other Races>60.[facility] LABORATORYComment: eGFR (Estimated GFR) Units of measure: mL/min/1.73 meters squared eGFR is derived from the reexpressed MDRD Study equation using the following parameters: serum creatinine, age, gender and race. The creatinine assay has been calibrated to be traceable to IDMS. An eGFR <60 mL/min/1.73m2 for >3 months is consistent with chronic kidney disease. Refer to KDOQI guidelines for clinical interpretation. Specimen (Source)Anatomical Location / LateralityCollection Method / Volume Collection TimeReceived TimeBlood specimen (specimen)BLOOD SPECIMEN / Unknown 03/29/2013 9:57 AM EST03/29/2013 9:59 AM EST Narrative Authorizing ProviderResult TypeResult StatusMiceri Morrison MDLABORATORYFinal ResultPerforming OrganizationAddressCity/State/ZIP CodePhone Number [facility] [address] [place] [address] from Last 3 Months or Most Recently Relevant to Health Maintenance Insurance Care Teams Team MemberRelationshipSpecialtyStart DateEnd Date Constantino Lomax DO [facility]06/19/07
[2025-04-03] MEDS: IPRATROPIUM/ALBUTEROL SULFATE 3 ML AMPUL.NEB IH (10:54)
[2025-04-03] MEDS: METHYLPREDNISOLONE SOD SUCC PF 125 MG/2 ML VIAL IVP (11:03)
[2025-04-03 11:14] LABS: Anion Gap 14.1
[2025-04-03 11:20] LABS: Alanine Aminotransferase 26 U/L (16-63); Albumin Globulin Ratio 0.9; Albumin Level 3.6 g/dL (3.4-5.0); Alkaline Phosphatase 102 U/L (46-116); Aspartate Amino Transferase 19 U/L (15-37); Blood Urea Nitrogen 14.0 mg/dL (7.0-18.0); Calcium 8.9 mg/dL (8.5-10.1); Carbon Dioxide 27.6 mmol/L (21.0-32.0); Chloride 99 mmol/L (98-107); Estimated GFR (African America >60 (>=60 mL/min/1.73m^2); Estimated GFR (Non-African Ame >60 (>=60 mL/min/1.73m^2); Globulin 4.2 g/dL; Glucose 153 mg/dL (74-106); NT Pro B Type Natriuretic Pept 1013.0 pg/mL (<=1800.0); Potassium 4.7 mmol/L (3.5-5.1); Sodium 136 mmol/L (136-145); Total Protein 7.8 g/dL (6.4-8.2)
[2025-04-03] MEDS: FUROSEMIDE 40 MG/4 ML VIAL IVP (11:34)
--- NOTE | 2025-04-03 13:00 | ED.GENADUL1 ---
HPI HPI - General Adult General Chief complaint: Shortness of Breath/Dyspnea Stated complaint: SOB Time Seen by Provider: 04/03/25 10:47 Source: patient Mode of arrival: walk-in History of Present Illness HPI narrative: Patient is a 74-year-old gentleman who presents with his secondary to shortness of breath. The patient has had lower extremity edema for many months now. And now he is having worsening shortness of breath over the last 2 to 3 weeks. He states he had lower extremities for years. He supposed to be taking water pills for his hypertension. But he states he has not taken him in the last 5 to 7 days. He states that having to go to the bathroom all of the time is really disheartening to him. He states that he is not able to go to basketball games and see his grandkids like he wants to because he always has to urinate. So he stopped taking them. He did not think they were doing anything. Patient then started having some shortness of breath. It is worse to exert himself. Relieved by nothing. He states he does not have any chest pain. He states when he lays down at night he feels bubbling in his throat and he feels like the water tickles up into his throat and he coughs. He does not have a film tests checker. Has not had an echocardiogram. He does not keep track of his weight. He does not wear support socks. Related Data Home Medications ?Medication ?Instructions ?Recorded ?Confirmed amlodipine 10 mg tablet 5 mg PO DAILY 04/03/25 04/03/25 furosemide 40 mg tablet 40 mg PO DAILY 04/03/25 04/03/25 metformin 500 mg tablet,extended 500 mg PO BID 04/03/25 04/03/25 release 24 hr metoprolol succinate 100 mg 100 mg PO DAILY 04/03/25 04/03/25 tablet,extended release 24 hr omeprazole 40 mg capsule,delayed 40 mg PO DAILY 04/03/25 04/03/25 release Previous Rx's ?Medication ?Instructions ?Recorded furosemide 40 mg tablet 40 mg PO BID #20 tabs 04/03/25 potassium bicarbonate-citric acid 25 meq PO DAILY #10 ea 04/03/25 25 mEq effervescent tablet Allergies Allergy/AdvReac Type Severity Reaction Status Date / Time No Known Drug Allergies Allergy Verified 04/03/25 10:33 Review of Systems ROS Status of ROS 10 or more systems reviewed and unremarkable except as noted in history and below [facility] Medical History (Updated 04/03/25 @ 13:01 by Octavia Veliz DO) Edema ?R60.9 - Edema, unspecified (ICD-10) Diabetes ?E11.9 - Type 2 diabetes mellitus without complications (ICD-10) HTN (hypertension) ?I10 - Essential (primary) hypertension (ICD-10) Exam Narrative Exam Narrative: Prior to examining the patient, I have washed with hospital approved and provided Antiseptic Hand Gas Meter Repairer and have also applied gloves.? Prior to touching the patient, I asked for consent to examine the patient.? General: Alert and oriented, well nourished, mild distress. Eye: PERRL, EOMI, normal conjunctiva. HENT: Normocephalic, normal hearing, moist oral mucosa, no scleral icterus, no sinus tenderness. Neck: Supple, non-tender, no carotid bruits, no JVD, no lymphadenopathy. Lungs: Patient has conversational dyspnea. He does not have any labored breathing. He does have coarse breath sounds auscultated bilaterally even without a stethoscope. There is rales throughout. Heart: Normal rate, regular rhythm, no murmur, or gallop. The patient has +3 pitting edema to above the knee. Abdomen: Soft, non-tender, non-distended, normal bowel sounds, no masses. Protuberant abdomen without any fluid wave. Musculoskeletal: Normal range of motion and strength, no tenderness or swelling. Skin: Skin is warm, dry and pink, no rashes or lesions. Chronic venous stasis changes bilateral lower extremity. Neurologic: Awake, alert, and oriented X3, CN II-XII intact. Psychiatric: Cooperative, appropriate mood and affect.? Following the conclusion of the examination, I have washed my hands thoroughly after removing examination gloves. Constitutional Vital Signs, click to edit/add: Last Vital Signs Temp 97.7 F 04/03/25 10:28 Pulse 58 L 04/03/25 12:30 Resp 15 04/03/25 12:30 BP 175/91 H 04/03/25 11:34 Pulse Ox 93 L 04/03/25 12:30 O2 Del Method Room Air 04/03/25 10:55 Course Course Hospital Course: In summary the patient is a very pleasant 74-year-old gentleman presenting to the emergency department with his secondary to difficulty in breathing. Patient was noted to have evidence of congestive heart failure which likely is the etiology of him not taking his diuretic for his bilateral lower extremity edema. His right sided congestive heart failure likely turned in a left-sided congestive heart failure. Despite this the patient is not hypoxic. He does get short of breath with any type of exertion. Vital Signs Vital signs: Vital Signs Temperature 97.7 F 04/03/25 10:28 Pulse Rate 65 04/03/25 10:28 Respiratory Rate 22 H 04/03/25 10:28 Blood Pressure 229/102 H 04/03/25 10:28 Pulse Oximetry 93 L 04/03/25 10:28 Oxygen Delivery Method Room Air 04/03/25 10:28 Temperature 97.7 F 04/03/25 10:28 Pulse Rate 58 L 04/03/25 12:30 Respiratory Rate 15 04/03/25 12:30 Blood Pressure 175/91 H 04/03/25 11:34 Pulse Oximetry 93 L 04/03/25 12:30 Oxygen Delivery Method Room Air 04/03/25 10:55 Medical Decision Making MDM Narrative Medical decision making narrative: Patient is a very pleasant 74-year-old male with shortness of breath. The patient has evidence of congestive heart failure. The patient however does not want to stay in the hospital. He is not hypoxic. He is visibly uncomfortable when he tries to ambulate but he can ambulate and he has an upright and stable gait. The patient was told that we could continue to give him diuresis here in the hospital but the patient states that he is willing and promises that he will take his medication as directed. I have instructed him he is can be taking Lasix 40 mg twice a day and he is can to be taking potassium 25 mEq daily. He is going to take daily weights. He is preston wear soccer socks over his calves because that is the only sock that will fit that he will be able to be compliant with. Patient is told that he needs to sit with his legs up. Currently when the patient is watching television or's beings in a relaxing fashion he has his legs down. He will try to keep them up to try to promote mobilization of fluid. The patient is told that if his at all feels like he needs to come to the hospital he cannot question her that he absolutely has to come to the hospital. He does realize failure to do and follow-up as he needs to will further worsen and potentially compromise his condition overall. He has no known history of COPD does not smoke and has never smoked so this is in his favor. I do feel that the patient is going to be compliant given the current parameters. Patient is safe to be discharged home. Differential Diagnosis Differential Diagnosis: Shortness of breath, congestive heart failure, COPD, acute myocardial infar Medical Records Medical records reviewed: Yes I reviewed the patient's medical records Lab Data Lab results reviewed: Yes I reviewed the patient's lab results Lab results narrative: Patient does not have an elevated troponin. Patient's BNP is at the upper level of normal but is still normal. Patient's chest x-ray however does show cardiomegaly as well as peripheral vascular congestion. His symptoms are consistent with congestive heart failure. Labs: Lab Results 04/03/25 Range/Units 10:39 WBC 8.6 (4.0-11.0) 10^3/uL RBC 4.59 L (4.70-6.10) 10^6/uL Hgb 14.1 (14.0-18.0) g/dL Hct 42.1 (42.0-54.0) % MCV 91.7 (80.0-94.0) fL MCH 30.7 (25.9-34.0) pg MCHC 33.5 (29.9-35.2) g/dL RDW 13.0 (11.0-15.0) % Plt Count 182 (150-450) 10^3/uL MPV 10.4 (9.5-13.5) fL Neut % (Auto) 82.7 H (43.0-75.0) % Lymph % (Auto) 9.5 L (20.5-60.0) % [place] % (Auto) 6.2 (1.7-12.0) % Eos % (Auto) 0.7 L (0.9-7.0) % Baso % (Auto) 0.5 (0.2-2.0) % Neut # (Auto) 7.1 H (1.4-6.5) 10^3/uL Lymph # (Auto) 0.8 L (1.2-3.8) 10^3/uL [place] # (Auto) 0.5 (0.3-0.8) 10^3/uL Eos # (Auto) 0.1 (0.0-0.7) 10^3/uL Baso # (Auto) 0.0 (0.0-0.1) 10^3/uL Abs Immat Gran (auto) 0.03 (0.00-0.03) 10^3/uL Imm/Tot Granulo (auto) 0.4 (0.0-0.5) % Sodium 136 (136-145) mmol/L Potassium 4.7 (3.5-5.1) mmol/L Chloride 99 (98-107) mmol/L Carbon Dioxide 27.6 (21.0-32.0) mmol/L Anion Gap 14.1 BUN 14.0 (7.0-18.0) mg/dL Creatinine 0.97 (0.70-1.30) mg/dL Est GFR ( Amer) >60 (>=60 mL/min/1.73m^2) Est GFR (Non-Af Amer) >60 (>=60 mL/min/1.73m^2) BUN/Creatinine Ratio 14.4 Glucose 153 H (74-106) mg/dL Calcium 8.9 (8.5-10.1) mg/dL Total Bilirubin 1.0 (0.2-1.0) mg/dL AST 19 (15-37) U/L ALT 26 (16-63) U/L Alkaline Phosphatase 102 (46-116) U/L Troponin I High Sens 15.3 (4.0-76.1) pg/mL NT-Pro-B Natriuret Pep 1013.0 (<=1800.0) pg/mL Total Protein 7.8 (6.4-8.2) g/dL Albumin 3.6 (3.4-5.0) g/dL Globulin 4.2 g/dL Albumin/Globulin Ratio 0.9 Imaging Data Chest x-ray: Radiologist's impression: ITS Impressions Chest X-Ray 04/03/25 10:42 IMPRESSION: SLIGHTLY LIMITED STUDY. BORDERLINE CARDIOMEGALY. QUESTION OF BIBASILAR PLEURAL-PARENCHYMAL CHANGE. IF WARRANTED, A 2 VIEW STUDY MAY BE HELPFUL FOR COMPLETE EVALUATION. Impression dictated by: Maday Blackwell M.D. 04/03/2025 11:26 AM Dictation Location: [place] [id number] Electronically authenticated by: [id number] Y Date: 04/03/2025 11:26 ECG Data Attestation: I personally reviewed and interpreted this ECG as follows: Interpretation: Twelve-lead EKG reveals a sinus rhythm with a ventricular of 63 bpm. The MN interval and QRS duration of the normal is here QTc is not prolonged. Section normal. No evidence of ST segment elevation or depression suggestive of infarction or ischemia. Discharge Plan Discharge Chief Complaint: Shortness of Breath/Dyspnea Clinical Impression: Congestive heart failure Patient Disposition: Home, Self-Care Time of Disposition Decision: 13:01 Condition: Fair Mode of Transportation: Private Vehicle Prescriptions / Home Meds: New furosemide 40 mg tablet 40 mg PO BID Qty: 20 0RF potassium bicarb-citric acid 25 mEq tablet, effervescent 25 meq PO DAILY Qty: 10 0RF No Action furosemide 40 mg tablet 40 mg PO DAILY metformin 500 mg tablet extended release 24 hr 500 mg PO BID omeprazole 40 mg capsule,delayed release(DR/EC) 40 mg PO DAILY metoprolol succinate 100 mg tablet extended release 24 hr 100 mg PO DAILY amlodipine 10 mg tablet 5 mg PO DAILY Print Language: German Instructions: Heart Failure (ED) Additional Instructions: Thank you for trusting me with your care today. Since I am letting you go home when you probably should be admitted we have to have very strict criteria. You must take 40 mg of Lasix twice a day. This will make you urinate. You also have to take potassium effervescent so you do not get cramping in your legs. I expect that you will buy socks to wear that can keep her legs compressed. I we will have you doubling up on that Lasix for 10 days. Then you can resume your normal dose. Please call your doctor today and schedule a follow-up appointment. You will need an echocardiogram on your heart. I appreciate your time and patience with us today. Have a great holiday season. Referrals: CELSO COLON [Primary Care Provider, Family Practice] - 1 week Discharge Date/Time: 04/03/25 13:22
== END 2025-04-03 13:22 | disposition home or self-care (01) ==
PROVIDERS: Emergency Provider Emergency Medicine; PCP Family Medicine
DX: I11.0 Hypertensive heart disease with heart failure (principal); I50.9 Heart failure, unspecified; R06.02 Shortness of breath
CPT/HCPCS: 36415; 71045; 80053; 83880; 84484; 85025; 93005; 94640; 96374; 96375; 99284; J1938; J2919

== ENCOUNTER 2025-04-08 09:23 | Outpatient (OUT) | payer MEDICARE, SELFPAY ==
--- OUTSIDE RECORDS SUMMARY | 2025-04-05 06:09 | XMS_ITS | Continuity of Care Document ---
Author Organization [facility] Address [address] [place] [address] Phone Care Team Providers Care Guide Tour Name Role Phone Constantino Lomax DO Primary Care Provider Teena Aparicio APRN Attending Provider Constantino Lomax DO Attending Provider [phone] Care Teams Patient Care Team Team Status: Active Member Role/Relationship Status Dates Constantino Lomax DO Primary Care Provider Active Visit Care Team Team Status: Inactive Member Role/Relationship Status Dates Constantino Lomax DO Primary Care Provider Active S tart: April 03, 2025 End: April 03, 2025Patti Rodgers ProviderActiveStart: April 03, 2025 End: April 03, 2025 Visit Care Team Team Status: Inactive Member Role/Relationship Status Ela Lomax DO Primary Care Provider Active S tart: April 03, 2025 End: April 03, 2025Patti Rodgers ProviderActiveStart: April 03, 2025 End: April 03, 2025 Patient Care Team Team Status: Inactive Member Role/Relationship Status Ela Lomax DO Primary Care Provider Active S tart: April 05, 2025 End: April 05, 2025Dasherin Lomax DOAttvanita ProviderActiveStart: April 05, 2025 End: April 05, 2025 Chief Complaint and Reason for Visit Chief Complaint Admit Date congestion, cough April 03, 2025 9:08am ER f/u fluid on lungs April 05 10:10am Reason for Visit Admit Date Pulmonary vascular congestion March 182024 9:08am Cardiomegaly April 05, 2025 10:10am Congestive heart failure April 05, 2025 10:10am Cough April 05, 2025 10:10am Edema April 05, 2025 10:10am Pulmonary vascular congestion March 182024 10:10am Syncope and collapse April 05, 2025 10:10am Reason for Referral Type Reason(s) Provider Provider Contact Information P rovider Address Start Date Congestive heart failure Cardiomegaly Syncope and xmzlbrnaK60.9 - Heart failure, unspecified,I51.7 - Cardiomegaly,R55 - [facility] [address]Zwfgul[place] 2024 Allergies, Adverse Reactions, Alerts Allergen Type Severity Reaction Last Updated Verified Status No Known Allergies Allergy Unknown April 05, 2025 8:23amYesActive Social History Smoking Status Status Start Date [...] December 18, 2024 10:35am Unknown Active Other jail (current) drug therapy December 13 7:47am Unknown Active Type 2 diabetes mellitus wit hout complications December 14, 2023 7:36am Unknown Active Loss of taste December 14, 2023 8:00am Unknown Ac tive Nocturia December 14, 2024 10:17am Unknown Ac tive Congestive heart failure April 05, 2025 10:43am U nknown Active Cardiomegaly April 05, 2025 10:40am Unknown Active Anemia December 13, 2023 1:05pm Unknown Act shahida Cough April 03, 2025 9:31am Unknown A ctive Edema April 05, 2025 10:39am Unknown Active Hyperlipidemia December 13, 2023 1:05pm Unknown A ctive Syncope and collapse April 05, 2025 10:34am Unkno wn Active Weight gain December 18, 2024 10:21am Unknown Active Essential (primary) hypertension December 13, 2023 1:0 5pm Unknown Active Gastro-esophageal reflux dis ease without esophagitis December 13, 2023 1:05pm Unknown Active Pulmonary vascular congestion April 03, 2025 10:0 7am Unknown Active Shoulder pain, bilateral December 18, 2024 10:14am U nknown Active Acute lower respiratory infection September 26, 2024 10:0 3am Unknown Active Medications Medication Status Dose Units Route Directions Qty Days Refills S tart Date Stop Date End Date Reason(s) Instructions Adherence Furosemide 40 mg tablet Discontinued 0 .ROUTE.HRJLAJJ373Toas 2023 9:21amOctober 2023 10:54amTAKE 1 TABLET EVERY MORNINGMetformin 500 mg tablet extended release 24 rpGkwdcobguhkp180VNET Every uidvenq97351Mgylscupm 2nd, 2024 11:00pmSept2024 9:55amtake 2 (500 mg) tablets with evening mealFurosemide 40 mg tabletDiscontinued0.ROUTE .YCVJELZ955Xzpmkpu 28th, 2024 10:53amMay 2024 8:47amTAKE 1 TABLET EVERY MORNINGLosartan 50 mg artjxiZedfmwhbbaxv53LWUUVmpjb314Zheracl 28th, 2024 10:54am September 04, 2024 8:47amAmlodipine (Norvasc) 10 mg lpjkrsKqcorjhqfkob8ABSewmr February 13, 2024 10:54amOctober 2023 10:54amtake 1/2 of a 10 MG tablet orally daily;Amlodipine (Norvasc) 10 mg yawukyMoufzccqmpfm1NTSefed145Zrjerva 28th, 2024 10:54amMay 2024 8:47amtake 1/2 of a 10 MG tablet orally daily; Metoprolol Succinate 100 mg tablet extended release 24 dpHfdsvspbrlqq164TCUS Qhica832Eatklxop 2023 10:18amN2024 9:07amAmlodipine (Norvasc) 10 mg lfougfMcdfgkrereqz9GFSgbkk287Kwl 20th, 2025 8:47amNovember 2024 9:19amtake 1/2 of a 10 MG tablet orally daily;Furosemide 40 mg tablet Discontinued0.ROUTE.JCKBBWM400Dfk2024 8:47amDecember 2024 11:03am TAKE 1 TABLET EVERY MORNINGLosartan 50 mg phebkxZexvoe47FQMALrkur526Unh 20th, 2025 8:47amComplies with drug therapyAmlodipine (Norvasc) 10 mg tablet Mdypbjvgyzdr1YGZyrcu803Vpyyatwb 10th, 2025 9:18amNovember 2024 9:32amtake 1/2 of a 10 MG tablet orally daily;Amlodipine (Norvasc) 10 mg fhxyqoWfjoyz8AE Meevx456Fkbzggeh2024 9:32amtake 1/2 of a 10 MG tablet orally daily; Complies with drug therapyMetoprolol Succinate 100 mg tablet extended release 24 hrActive0.ROUTE.QEGMIFV433Nljvendd 2024 9:07amTAKE 1 TABLET DAILYComplies with drug therapyMetoprolol Succinate 100 mg tablet extended release 24 hr Koabcdzkufyp414BFXN.COMPLEXJuly 2023 11:00pmDecember 2023 10:82xr777 mg orally 1 tablet with evening meal Orally Once a day;Amlodipine (Norvasc) 10 mg aeamlrIrlxdirvywfq8WVTilrqSgiy 2023 11:00pmOctober 2023 10:54am 1/2 tablet (0.5) mg daily orally daily;Furosemide 40 mg xozrtkJzbpndajqlwt52JSYJ .COMPLEXJuly 2023 11:00pmJuly 2023 9:22am40 mg orally ;TAKE 1 TABLET BY MOUTH ONCE EVERY MORNING;Losartan 50 mg mbevmiOuxjcdfxilxk94MHNIOndwnVlag 2023 11:00pmOctober 2023 10:54amMetformin 500 mg tablet extended release 24 qqXwmtxljyuuxi184HFRJ.COMPLEXJuly 2023 11:00pmAugust 2023 7:95pl929 mg orally 1 tablet with evening meal Orally Once a day;Omeprazole 20 mg capsule,delayed release(DR/EC)Pqguarznafnx44UEKQHavaaLwkf 2023 11:00pm December 14, 2023 7:55amAlbuterol Sulfate 90 mcg/actuation HFA aerosol inhaler Zootwqyiqxhg1ORFZZBRQAFCYZIIPSYZ 4-6 HOURS as needed for shortness of breath or wheezing8.50Jun2024 11:00pmSept2024 9:53amPrednisone 20 mg lqxkhfKjnbmxkllmrz58YXQE.BUMNCYX042Infi 2024 11:00pmSeptember 2024 9:55amTake 2 tabs po daily x 5 daysDoxycycline Hyclate 100 mg capsule Zuaocnhlpafg251QWRHYvtuc slslm34050Dhyr2024 11:00pmSeptember 2024 9:54amMetformin 500 mg tablet extended release 24 fbNebhmsqeekhq1332EFTPWjiwz jubebln677415Rporytiml 2nd, 2025 9:55amSept2024 10:12amtake 2 (500 mg) tablets with evening mealMetformin 500 mg tablet extended release 24 hr Wovxjrizactd6UNJczdm dsqwnuh680160Qrnvbkrcp 2nd, 2025 10:10amSeptember 2024 10:37amtake 2 (500 MG) tablets orally every evening;Metformin 500 mg tablet extended release 24 vuLoysfh5BNTcued fqcagge838757Bfrvsdemp 2nd, 2025 10:34am take 2 (500 MG) tablets orally every evening;Complies with drug therapy Omeprazole 40 mg capsule,delayed release(DR/EC)Rymrvw36YZNBThxkg597Nlghlkxqp 2nd, 2025 10:34am*take 15 min prior to a mealComplies with drug therapyPotassium Bicarb-Citric Acid 10 mEq tablet, pwaujsmwheduZnrtlfeeegnd77LFCENEpscoQglxninf 2024 12:00amDecember 2024 11:01amFurosemide 40 mg dprjiiSgybsd55HZCI Twice xxcwp2153Yquettya 2024 10:59amComplies with drug therapyPotassium Bicarb-Citric Acid (Klor-Con/Ef) 25 mEq tablet, ttzddczannygDbpgns37BBUSAFpihf39 0De2024 12:00amComplies with drug therapyMecobalamin (Vitamin B12) 1,000 mcg tablet,mjqzwntwYguvmb1445DTJTHOfsxdXjzear 2023 11:00pmComplies with drug therapyMetformin 1,000 mg tablet extended release 24 hrDiscontinued 1000MGPOEvery xbfusqo408Stwkvr2023 11:00pmSept2023 12:27pm *with PM mealOmeprazole 40 mg capsule,delayed release(DR/EC)Jpzuexjgrgij11DQKL Dzudz267Xjpgkc2023 11:00pmSept2024 10:37am*take 15 min prior to a meal Immunizations Immunization Event Date Not Given Reason Dose Number Newspaper Writer Lot Number Reason(s) Given Vaccine Information Statement [...] 9:32a m April 03, 2025 10:04am Negative B-Type Natriuretic PeptideApril 03, 2025 10:39amDe2024 10:39am 1013.0 pg/mL<=1800.0Troponin I High SensitivityApril 03, 2025 10:39am April 03, 2025 10:39am15.3 pg/mL4.0-76.1CUT-OFF POINTS HAVE BEEN ESTABLISHED BASED ON THE FOURTHUNIVERSAL DEFINITION OF MYOCARDIAL INFARCTION. THE UPPERREFERENCE LIMIT (URL) OF TROPONIN, DEFINED THE 99THPERCENTILE OF cTnI DISTRIBUTION IN A REFERENCE POPULATION,HAS BEEN CONFIRMED THE DECISION THRESHOLD FOR MIDIAGNOSIS.99TH PERCENTILE = 76.2 PG/MLNOTE: HIGH-SENSITIVITY TROPONIN ASSAY IS NOT INTENDED TO BEUSED IN ISOLATION BUT SHOULD BE INTERPRETED IN CONJUNCTIONWITH OTHER DIAGNOSTIC AND CLINICAL INFORMATION.Anion GapApril 03, 2025 10:39amDece2024 10:39am14.1Basophils # (Auto)April 03, 2025 10:39amDecember 2024 10:39am0.0 10 3/uL0.0-0.1Influenza Type A (Rapid)April 03, 2025 9:32amDecember 2024 10:04amNegative Albumin/Globulin Ratioer 2024 10:39amDecember 2024 10:39am0.9 Basophils (%) (Auto)April 03, 2025 10:39amDecember 2024 10:39am0.5 % 0.2-2.0Influenza Type B (Rapid)April 03, 2025 9:32amDecember 2024 10:04amNegativeAlbuminDecember 2024 10:39amDecember 2024 10:39am3.6 g/dL3.4-5.0Eosinophils # (Auto)April 03, 2025 10:39amDecember 2024 10:39am0.1 10 3/uL0.0-0.7Alkaline PhosphataseApril 03, 2025 10:39amDecember 2024 10:78uu962 U/I23-498Plurykhfyqh (%) (Auto)April 03, 2025 10:39amDecember 2024 10:39am0.7 %Below low normal0.9-7.0Alanine Aminotransferase (ALT/SGPT)April 03, 2025 10:39amDecember 2024 10:39am26 U/Z03-59MwnznoocneXlcthmnk 2024 10:39amDecember 2024 10:39am42.1 %42.0-54.0Aspartate Amino Transf (AST/SGOT)April 03, 2025 10:39amDecember 2024 10:39am19 U/T57-33DumwrjmydhAannqhqx 2024 10:39amApril 03, 2025 10:39am14.1 g/dL14.0-18.0BUN/Creatinine RatioDe2024 10:39amDecemb2024 10:39am14.4Immature Granulocyte # (Auto) April 03, 2025 10:39amDecemb2024 10:39am0.03 10 3/uL0.00-0.03Blood Urea NitrogenDe2024 10:39amDecember 2024 10:39am14.0 mg/dL 7.0-18.0Immature Granulocyte % (Auto)April 03, 2025 10:39amce2024 10:39am0.4 %0.0-0.5Calcium LevelDece2024 10:39amDece2024 10:39am8.9 mg/dL8.5-10.1Lymphocytes # (Auto)April 03, 2025 10:39am April 03, 2025 10:39am0.8 10 3/uLBelow low normal1.2-3.8Chloride Level April 03, 2025 10:39amce2024 10:39am99 mmol/X58-190Xptmvcdkjis (%) (Auto)April 03, 2025 10:39amApril 03, 2025 10:39am9.5 %Below low fuoswf14.5-60.0Carbon Dioxide LevelDe2024 10:39amDecemb2024 10:39am27.6 mmol/L21.0-32.0Mean Corpuscular HemoglobinDece2024 10:39amDece2024 10:39am30.7 pg25.9-34.0CreatinineDece2024 10:39amDece2024 10:39am0.97 mg/dL0.70-1.30Mean Corpuscular Hemoglobin ConcentDe2024 10:39amDecember 2024 10:39am33.5 g/dL29.9-35.2 Estimated GFR ()April 03, 2025 10:39amDecember 2024 10:39am>60>=60 mL/min/1.73m 2Mean Corpuscular Volume2024 10:39am April 03, 2025 10:39am91.7 fL80.0-94.0Estimated GFR (Non- April 03, 2025 10:39amDecember 2024 10:39am>60>=60 mL/min/1.73m 2 Monocytes # (Auto)April 03, 2025 10:39amDecember 2024 10:39am0.5 10 3/uL0.3-0.8Globulince2024 10:39amDecember 2024 10:39am4.2 g/dLMonocytes (%) (Auto)April 03, 2025 10:39amDecember 2024 10:39am 6.2 %1.7-12.0Glucose LevelDece2024 10:39amDecember 2024 10:39am 153 mg/dLAbove high iigjwd70-272Fxvj Platelet VolumeDece2024 10:39am April 03, 2025 10:39am10.4 fL9.5-13.5Potassium LevelDece2024 10:39amDecember 2024 10:39am4.7 mmol/L3.5-5.1Neutrophils # (Auto)April 03, 2025 10:39amDecember 2024 10:39am7.1 10 3/uLAbove high normal1.4-6.5 Sodium LevelDeveter[facility] affairs [facility]2024 10:39amDecember 2024 10:88jm940 mmol/L 136-145Neutrophils (%) (Auto)April 03, 2025 10:39amApril 03, 2025 10:39am82.7 %Above high jhpdos67.0-75.0Total BilirubinDece2024 10:39amDe2024 10:39am1.0 mg/dL0.2-1.0Platelet CountDece2024 10:39amDe2024 10:41ob511 10 3/rE771-632Huila ProteinDece2024 10:39amDece2024 10:39am7.8 g/dL6.4-8.2Red Blood Count April 03, 2025 10:39amDe2024 10:39am4.59 10 6/uLBelow low normal4.70-6.10Red Cell Distribution WidthDe2024 10:39amDe2024 10:39am13.0 %11.0-15.0Corrected White Blood CountDe2024 10:39amDece2024 10:39am8.6 10 3/uL4.0-11.0 Diagnostic Imaging Reports Author Bonilla Knight [facility] HealthAuthoredDe2024 9:50amReport Dictated Date/TimeDictated ByStatusRadiology ReportDece2024 9:50am Bonilla Knight Jr DOcompleteOhioHealth [facility] [place] [address] XRay Report Signed Patient: Madhu Madison MR#: [id number] : 1950 Acct:[id number] Age/Sex: 74 / M ADM Date: 5 Loc: XDUCLY [facility]: Teena Aparicio APRN Copies to: [...] Jr., D.O. 04/03/2025 9:51 AM Dictation Location: RADIO-PC-22 Transcribed By: JENNIFER 04/03/25 0951 Dictated By: Bonilla Knight Jr, DO 04/03/25 0950 Signed By: <Electronically signed by Bonilla Knight Jr, DO in OV> 04/03/25950 Vital Signs Vital Reading Result Reference Range Collection Date/Time Height 66 [in_i] April 03, 2025 9:47arXelerb280.88 kgDecemb2024 9:17amBody Mdmljprtspv90 [degF]97.6-99.0Decemb2024 9:17amHeart Rate63 /ybx81-273 April 03, 2025 9:17amRespiratory rate18 /xbv19-02Plnanuso 17th, 2025 9:17am Oxygen saturation by Pulse eniscjhl75 %95-100cemb2024 9:17amBP Modylmyz631 mm[Hg]100-140Decemb2024 9:17amBP Edzwsnqsc86 mm[Hg]60-100 April 03, 2025 9:17amBMI (Body Mass Index)50.8 kg/a3FllwwkkmApril 03, 2025 9:74thJwmpvi89 [in_i]April 05, 2025 9:45caWioglo923.79 kgDecemb2024 9:53amBody Cewdsdlknim31.7 [degF]97.6-99.0Decemb2024 9:53amHeart Rate69 /ruf59-105Hwvdtspp 19th, 2025 9:53amOxygen saturation by Pulse ikxyodey20 %95-100Decemb2024 9:53amBP Zyaqvgcx810 mm[Hg]100-140Decemb2024 9:53amBP Yyclhoego95 mm[Hg]60-100Decembth, 2025 9:53amBMI (Body Mass Index)49.4 kg/p1ZtqfspitApril 05, 2025 9:53am Advance Directives Advance Directive Response Recorded Date/ Time Advance Directives No May 26, 2023 11:58am Insurance Providers Guarantor Madhu A Sumser Address [address] [facility] [address]Kmtuqpp Info.Home Phone: Payer Group Member ID Coverage Type Subscriber Relationship to Subscriber Effective Date Expiration Date [employer] [facility] PFFS Id: [id number] A Sumser Id: [id number] [facility] [address] Home Phone: Self Encounters Encounter Location(s) Arrival/Admit Date Discharge/Departure Date Discharge/Departure Disposition Provider(s) Departed Physician/ Provider Office Visit -[facility] [place] April 03, 2025 9:08am April 03, 2025 10:05am Discharged to home care or self care (routine discharge) Hannah Camargo APRN Departed Clinical -[facility] [place] April 03, 2025 9:32am April 03, 2025 9:33am Discharged to home care or self care (routine discharge) Hannah Camargo APRN Departed Physician/ Provider Office Visit -[facility] Family [facility] [place] April 05, 2025 10:10am April 05, 2025 11:08am Discharged to home care or self care (routine discharge) Constantino Lomax , DO Recent Diagnosis Onset Date Admit Date Pulmonary vascular congestion Unknown 2024 9:08am Cardiomegaly Unknown April 05 10:10am Congestive heart failure Unknown Decembe r 2024 10:10am Cough Unknown April 05 10:10am Edema Unknown April 05 10:10am Pulmonary vascular congestion Unknown 2024 10:10am Syncope and collapse Unknown April 052024 10:10am Assessments Diagnosis Onset Date Resolution Status Admit Date Pulmonary vascular congestion acuteApril 03, 2025 9:08amCardiomegalyacuteDece2024 10:10am [facility]acute[facility] 20[facility] 10:10amCoughacuteDeceb[facility] 2024 10:10amEdemaacuteDetucson heart hospital 2024 10:10amPulmonary vascular congestion acuteDe2024 10:10amSyncope and collapseacute2024 10:10am Plan of Treatment Author Saba Mensah [facility] HealthAuthoredSt. [facility] 2024 11:04amOn 03/31/25 he was at a wrestling match and had not eaten all day. He voices that he was worked up and went to the bathroom, he was at the urinal and blacked out, his vision did start to khanna out prior to falling backwards and he did not recall hitting the ground. He did not feel any palpitations, he was just exhausted when he was standing there and afterwards. It was hot in the gym. He had been there for hours. He had never had this happen before. He voided all over himself. His son in law came and got him. The program trainer came and got him and told him to eat something and gave him water. He was able to walk out of the bathroom. He was clammy, sweaty and hot and mad . He felt bad and was apologetic. I did recommend he have an echocardiogram done. He is agreeable. An order is provided. I do want him to see a is consultant for evaluation. Will refer to [facility]. He had a bad head cold prior to going to and could not breathe, he was checked for COVID-19, Influenza A and B and was negative for all three. Urgent Care sent him to the ER on 04/03/25. He had a chest x-ray done at Urgent Care and one done at the [facility] ER. I do want to order an echocardiogram to rule out abnormalities. He is agreeable. Seen on chest x-ray done on 04/03/25. We discussed that this is normally seen with congestive heart failure. A second x-ray was done at the hospital ER on 04/03/25 which said the heart was borderline prominent and they did not see the vascular congestion which we see with heart failure. I did advise him that he was diagnosed with congestive heart failure at the ER. His BNP that was drawn at the ER was 1013. He was told to increase his Lasix 40 MG to two a day x10 days and his Klor Con to 25 MG daily x10 days. He voices that he was short of breath when laying down. We discussed that this is a symptom of congestive heart failure. He voices that this has improved since he left the ER. I want him to continue with the Lasix 40 MG two times a day until seen by the is consultant. He can take one in the morning and one by noon so he is not voiding all the time. He should continue with the potassium supplement (25 MEQ) daily in addition until seen by the is consultant. He should have a BMP drawn to be sure that this is not affecting his potassium level. He needs to do this on 04/08/25 and call for results. He voices that he had rheumatic fever when he was a child. He was only allowed to play baseball not football when he was younger. He could chop wood, run, do anything he wanted to do. Author Teena Aparicio [facility] HealthAuthoredDetucson [facility] 2024 10:08amX-ray confirms pulmonary congestion. Patient denies known diagnosis of heart failure. Also has trace pulmonary effusions. Discussed with patient given x-ray results, symptoms and history of passing out and falling on Tuesday would highly recommend he goes to the ER for further evaluation. Does admit to history of lower extremity edema, is on diuretic for this. Patient declines EMS transport. Patient verbalized understanding and states he will go to [facility] for further evaluation. Rapid/covid flu neg Future Tests Future scheduled test information is unavailable Pending Tests Test Name Ordered Date Scheduled Date E[facility] echo transthoracic April 05, 2025 10:47 am XR chest 2V*April 03, 2025 9:31am Future Visits Future appointment information is unavailable Future Procedures Procedure Name Ordered Date Scheduled Date Basic Metabolic Panel April 05, 2025 11:03a m B-Type Natriuretic PeptideDeceer 2024 11:05am Future Medications Future medication information is unavailable Patient Instructions Patient instructions are unavailable Hospital Discharge Instructions Ambulatory Orders* Referral to Cardiology Time Frame: 04/05/25, Location: None Selected
--- OUTSIDE RECORDS SUMMARY | 2025-04-08 09:30 | XMS_ITS | Clinical Summary ---
Author Organization [facility] Address [address] [place] [address] Care Team Providers Care Asset Protection Detective Name Role Phone Constantino Lomax DO Primary Care Provider [phone] Allergies No known active allergies Medications MedicationSigDispense QuantityRefillsLast FilledStart DateEnd DateStatus bisoprolol-hydrochlorothiazide (ZIAC) 10-6.25 mg per tablet Take 1 tablet by mouth once daily.ctive Omeprazole Magnesium (PRILOSEC OTC) 20 mg tablet Take 1 tablet by mouth once daily.ctive amLODIPine 5 mg tablet Take 2 tablets by mouth once daily.ctive Active Problems ProblemNoted DateDiagnosed LvvxOfqdgssdvxvyu51/09/2015OA (osteoarthritis) of knee03/29/2013Knee pain03/29/2013Unspecified essential hoxbkwxoyvho13/12/2013 GERD (gastroesophageal reflux disease)03/29/2013Habitual alcohol use03/29/2013 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), without mention of /06/2008 Family History Medical HistoryRelationCommentsCOPDFatherDECEASEDCoronary Artery DiseaseMother DiabetesMotherHypertensionMotherRelationStatusCommentsFatherMother Social History Tobacco UseTypesPacks/DayYears UsedDateSmoking Tobacco: NeverSmokeless Tobacco: NeverAlcohol UseStandard Drinks/WeekCommentsYes0 (1 standard drink = 0.6 oz pure alcohol)Everyday drinker, beer-- 6/DAY.Sex and Gender InformationValueDate RecordedSex Assigned at BirthNot on fileLegal LudXtgb52/02/2012 8:12 AM EST Gender IdentityNot on fileSexual OrientationNot on fileOccupationIndustryJob Start DateJob End DateRETIREDNot on fileNot on fileNot on file Last Filed Vital Signs Vital SignReadingTime TakenCommentsBlood Qzuqsdcb306/7405/29/2013 6:15 AM EST Jyvin126505/29/2013 6:15 AM TXDCtlfkuntlge52.9 ??C (98.5 ??F)05/29/2013 6:15 AM ESTRespiratory Gawt076705/29/2013 6:15 AM ESTOxygen Rroqvclrss13%05/29/2013 6:15 AM ESTInhaled Oxygen Concentration--Ixmsvr940.3 kg (230 lb)05/28/2013 9:07 AM JWUWwurdm880.2 cm (5' 7 )05/28/2013 9:07 AM ESTBody Mass Index36.02005/28/2013 9:07 AM EST Plan of Treatment Health MaintenanceDue DateLast DoneCommentsAnxiety Uxwiirnpv22/06/1968Depression Pnyexlogt61/06/1968Hepatitis C Tetnljtyv76/06/1968DTaP,Tdap,Td Vaccine (1 - Tdap)1968Lipid Mxxkdtyok54/06/1985CT Lviphrouetga77/06/1995Cologuard (FIT-DNA)10/21/19945222Lwvpojvcrac41/06/1995Colorectal Cancer Lkunbgolp60/06/1995 Fecal Occult Blood10/21/19941639Ftfusvsbpmavm01/06/1995Pneumococcal Vaccine: 50+ (1 of 1 - PCV)10/22/1999Shingrix Vaccine (1 of 2)10/22/1999Diabetes Screening dvance Directive Vgwizcpjws36/01/2025RSV Vaccine (1 - 1- dose 75+ series)2024ovid-19 Vaccine (1 - 2024-26 season)2024 Influenza Vaccine (#1)2024 Medical Devices ImplantedTypeAreaManufacturerDevice IdentifierShelf Expiration DateModel / Serial / LotCem Bn Co Hv 40gm - [id number] Implanted:Qty: 1 on 05/03/2013 at [facility] / PuttyLeft: Bone - WsvgDSOMVQ55/30/[id number] / / [id number] Bn Co Hv 40gm - [id number] Implanted:Qty: 1 on 05/28/2013 at [facility] / PuttyRight: Bone - ZxcbBUXQRS58/30/[id number] / / [id number] Implanted:Qty: 1 on 05/03/2013 at [facility] FHCImplantLeft: Bone - Knee [id number] / / [id number] Xs Uni Twin Femoral Cemen - [id number] Implanted:Qty: 1 on 05/28/2013 [facility] - Knee BIOMET ORTHO04/17/[id number] / / [id number] Vngrd M Oxfd Cocr Mlbdn - [id number] Implanted:Qty: 1 on 05/03/2013 at [facility] - KneeLeft: Bone - HitkLTXOBU74/30/[id number] / / [id number] 3mm Oxfd Arcm Lt Kn - [id number] Implanted:Qty: 1 on 05/03/2013 at [facility] - KneeLeft: Bone - YshlYSSNBQ78/30/[id number] / / [id number] Vngrd M Oxfd Cocr Mlbdn - [id number] Implanted:Qty: 1 on 05/28/2013 at [facility] KneeRight: Bone - AmfpDBIEDD05/30/[id number] / / [id number] 3mm Oxfd Rt Menis Kn Shirley - [id number] Implanted:Qty: 1 on 05/28/2013 at [facility] KneeRight: Bone - FbdhTHUKKS74/31/[id number] / / [id number] Procedures Procedure NamePriorityDate/TimeAssociated DiagnosisCommentsBASIC METABOLIC PANEL Lllnlgf4703/29/2013 9:57 AM EST OA (osteoarthritis) of knee from Last 3 Months or Most Recently Relevant to Health Maintenance Results * (ABNORMAL) BASIC METABOLIC PNL (03/29/2013 9:57 AM EST)ComponentValueRef Range Test MethodAnalysis TimePerformed AtPathologist PiidlckopGdulskv484(H)65 - 100 mg/dLCOMMUNITY MEMORIAL [facility]PITAL LGUCVXEVHHJTQ9945 - 25 mg/dLCOMMUNITY MEMORIAL HOSPITAL LABORATORYCreatinine1.050.70 - 1.40 mg/dLCOMMUNITY MEMORIAL HOSPITAL LABORATORY Lpnffw467748 - 146 mmol/LCDILEY [facility]IDGE [facility] LABORATORYPotassium4.33.5 - 5.0 mmol/LCDI[facility] FOTLVRNTQIGfmggpaw60337 - 110 mmol/[facility]CDI[facility] ALQZYDRMCAUC67530 - 32 mmol/LCDI[facility] LABORATORYAnion Xec016 - 15 mmol/LCDILEY [facility]ID[facility] LABORATORYCalcium9.38.5 - 10.5 mg/dL [facility] LABORATORYeGFR->60[facility] LABORATORYeGFR-All Other Races>60.[facility] LABORATORYComment: eGFR (Estimated GFR) Units of [...] StatusMiceri Morrison MDLABORATORYFinal ResultPerforming OrganizationAddressCity/State/ZIP CodePhone Number [facility] [address] [place] [address] from Last 3 Months or Most Recently Relevant to Health Maintenance Insurance Care Teams Team MemberRelationshipSpecialtyStart DateEnd Date Constantino Lomax DO [facility]06/19/07
[2025-04-08 10:33] LABS: Anion Gap 10.3; Blood Urea Nitrogen 23.0 mg/dL (7.0-18.0); Calcium 8.4 mg/dL (8.5-10.1); Carbon Dioxide 33.8 mmol/L (21.0-32.0); Chloride 101 mmol/L (98-107); Estimated GFR (African America >60 (>=60 mL/min/1.73m^2); Estimated GFR (Non-African Ame 52 (>=60 mL/min/1.73m^2); Glucose 251 mg/dL (74-106); NT Pro B Type Natriuretic Pept 412.0 pg/mL (<=1800.0); Potassium 4.1 mmol/L (3.5-5.1); Sodium 141 mmol/L (136-145)
== END 2025-04-08 09:24 | disposition home or self-care (01) ==
LOC: LAB 09:27
PROVIDERS: PCP Family Medicine; Visit Provider Family Medicine
DX: Z79.899 Other long term (current) drug therapy (principal); I50.9 Heart failure, unspecified; R55 Syncope and collapse; R06.02 Shortness of breath
CPT/HCPCS: 36415; 80048; 83880

== ENCOUNTER 2025-04-15 06:40 | Outpatient (OUT) | payer MEDICARE, SELFPAY ==
--- OUTSIDE RECORDS SUMMARY | 2025-04-12 09:00 | XMS_ITS | Encounter Summary ---
Author Organization [facility] Address [address] [place] [address] Phone Care Team Providers Care Document Controller Name Role Phone Monie Constantino Rufina LIMA Primary Care Provider [phone] Reason for Referral * Sleep - Outpatient (Routine) - Pending ReviewSpecialtyDiagnoses / Procedures Referred By ContactReferred To ContactSleep Lab Diagnoses Shortness of breath Obstructive sleep apnea syndrome Snoring Procedures Home sleep apnea test (HSAT) [place] SLEEP STD AIRFLOW HRT RATE&O2 SAT EFFORT UNATT Wale Ragland MD [address] [facility], [facility] [address] [place] [address] Phone: tel: fax: Referral IDStatusReasonStart DateExpiration DateVisits RequestedVisits [id number] Review Perform Procedure * Cardiac Stress Testing (Routine) - Pending ReviewSpecialtyDiagnoses / ProceduresReferred By ContactReferred To ContactRadiology Diagnoses Shortness of breath Congestive heart failure, unspecified HF chronicity, unspecified heart failure type (Multi) Essential (primary) hypertension BMI 45.0-49.9, adult (Multi) Procedures Nuclear Stress Test CHG MYOCARDIAL SPECT MULTIPLE STUDIES Wale Ragland MD [address] [facility], [address] [place] [address] Phone: tel: fax: Referral IDStatusReasonStart DateExpiration DateVisits RequestedVisits [id number] * CV Imaging (Routine) - Pending ReviewSpecialtyDiagnoses / ProceduresReferred By ContactReferred To ContactCardiology Diagnoses Shortness of breath Congestive heart failure, unspecified HF chronicity, unspecified heart failure type (Multi) Essential (primary) hypertension BMI 45.0-49.9, adult (Multi) Procedures Transthoracic Echo Complete [place] ECHO TTHRC R-T 2D W/WOM-MODE COMPL SPEC&COLR D [facility]ale Ragland MD [facility] [address] [address] Phone: tel: fax: Referral IDStatus[facility] DateExpiration DateVisits RequestedVisits [id number] Review Perform Procedure * Cardiovascular (Routine) - AuthorizedSpecialtyDiagnoses / ProceduresReferred By ContactReferred To Contact Diagnoses Shortness of breath Procedures ECG 12 Lead Wale Ragland MD [address] [facility], [address] [address] Phone: tel: fax: Referral IDStaColeHonolulu DateExpiration DateVisits RequestedVisits [id number]/26/202512/26/202611 * Consultation (Routine) - AuthorizedSpecialtyDiagnoses / ProceduresReferred By ContactReferred To ContactCardiology Diagnoses Shortness of breath Procedures Follow Up In Cardiology Wale Ragland MD [address] [place] [address] [facility] [address], [address] [address] Phone: tel: fax: Wale Ragland MD [address] [place] [address] Phone: tel: fax: Referral IDStatJaydaEncompass Health Rehabilitation [facility] DateExpiration DateVisits RequestedVisits [id number]/26/202512/26/202611 Reason for Visit * ReasonCommentsNew Patient VisitGirvin cardiomyopathy * Cardiovascular (Routine) - AuthorizedSpecialtyDiagnoses / ProceduresReferred By ContactReferred To Contact Diagnoses Shortness of breath Procedures ECG 12 Lead Wale Ragland MD [address] [place] [address] Phone: tel: fax: Referral IDStatVirgilioHonolulu DateExpiration DateVisits RequestedVisits [id number]/26/202512/26/202611 Encounter Details DateTypeDepartmentCare Team (Latest Contact Info)Tunxcgfokud11/26/2025 9:00 AM ESTOffice Visit [facility] [address] [place] [phone] Wale Ragland MD [address] [place] [address] Shortness of breath (Primary Dx); Congestive heart failure, unspecified HF chronicity, unspecified heart failure type (Multi); Essential (primary) hypertension; BMI 45.0-49.9, adult (Multi); Never smoked tobacco; Obstructive sleep apnea syndrome; Snoring Discharge Disposition: Home Social History Tobacco UseTypesPacks/DayYears UsedDateSmoking Tobacco: NeverSmokeless Tobacco: Never Tobacco Cessation:Counseling Given: Not Answered Alcohol UseStandard Drinks/WeekCommentsYes0 (1 standard drink = 0.6 oz pure alcohol)Sex and Gender InformationValueDate RecordedSex Assigned at BirthNot on fileLegal XmgIjzb60/22/2025 1:22 PM ESTGender IdentityNot on fileSexual OrientationNot on filedocumented as of this encounter Last Filed Vital Signs Vital SignReadingTime TakenCommentsBlood Czbusmsd738/80106/13/2024 9:04 AM EST Hbzkw145704/12/2025 9:03 AM ESTTemperature--Respiratory Rate--Oxygen Saturation-- Inhaled Oxygen Concentration--Hzfsau416 kg (301 lb)04/12/2025 9:03 AM ESTHeight 172.7 cm (5' 8 )04/12/2025 9:03 AM ESTBody Mass Index45.7704/12/2025 9:03 AM EST documented in this encounter Functional Status * PulseAnswerDate of MmfbefxtveJswgcp5096/26/2025 9:03 AM Josseline Luciano MA documented as of this encounter Patient Instructions * Patient Instructions* Nadiya Hamilton LPN - 04/12/2025 9:00 AM EST Please bring all medicines, vitamins, and herbal supplements with you when you come to the office. Prescriptions will not be filled unless you are compliant with your follow up appointments or have a follow up appointment scheduled as per instruction of your physician. Refills should be requested at the time of your visit. BMI was above normal measurement. Current weight: 137 kg (301 lb) Weight change since last visit (-) denotes wt loss 301 lbs Weight loss needed to achieve BMI 25: 136.9 Lbs Weight loss needed to achieve BMI 30: 104.1 Lbs Provided instructions on dietary changes Provided instructions on exercise. * Attachments The following attachments cannot be sent through Care Everywhere. * DASH Diet ([place] Timorese) documented in this encounter Progress Notes * Wale Ragland MD - 04/12/2025 9:00 AM EST Cardiology Consultation- New Consult Reason for referral: Patient here for cardiac consultation for heart failure and shortness of breath Chief Complaint Patient presents with New Patient Visit [facility] HPI: Madhu Madison is a 74 y.o. male with long history of morbid obesity, hypertension and diabetes mellitus presented recently to the emergency room with complaint of increasing shortness of breathand concern about upper respiratory tract infection including head congestion and cough. He was evaluated in the emergency room and was noted to have evidence of heart failure based on the chest x-ray and an elevated BNP. Patient was placed on Lasix with marked improvement of his symptoms. Patient reports intermittent compliance with Lasix. He admits to very high salt intake. The patient denies chest pain but describes class III shortness of breath. He describes some orthopnea which has improved with medical therapy. His recent ER record and evaluation noted and reviewed with him. Patient hadno previous history of coronary artery disease, congestive heart failure or valvular heart disease prior to this presentation. He has no previous cardiac testing done. His report classic symptoms of sleep apnea Assessment 1. Recent presentation with increasing shortness of breath, orthopnea and symptoms consistent with heart failure documented on chest x-ray with elevated BNP. Markedly improved after was placed on Lasix etiology of his heart failure could be poorly controlled hypertension, salt indiscretion, underlying ischemic heart disease versus right heart failure due to sleep apnea 2. Essential hypertension appears to can be controlled 3. Diabetes mellitus 4. Morbid obesity 5. Classic symptoms of obstructive sleep apnea 6. Moderate to high risk profile for ischemic heart disease Plan 1. We discussed treatment option and workup option for heart failure. I emphasized salt restrictionand compliance with medication 2. I recommended proceeding with a echocardiogram, Lexiscan Myocard perfusion study and outpatient sleep apnea 3. I encouraged the patient to address his weight and consider treatment with Ozempic or Mounjaro 4. Follow-up after testing is done 5. Advised him to notify me if symptoms worsen Past Medical History: Obesity, diabetes mellitus and hypertension Surgical History: He has a past surgical history that includes Knee surgery. Family History: Positive for family history of coronary artery disease Social History: Social History Tobacco Use Smoking status: Never Smokeless tobacco: Never Substance Use Topics Alcohol use: Yes Allergies: Patient has no known allergies. Current Medications: Current Outpatient Medications Medication Instructions albuterol 90 mcg/actuation inhaler 2 puffs, As needed amLODIPine (NORVASC) 10 mg, Daily Blood glucose monitoring meter 1 each, miscellaneous, As needed furosemide (LASIX) 40 mg, Daily losartan (COZAAR) 50 mg, Daily mecobalamin, vitamin B12, 1,000 mcg tablet,chewable Daily metFORMIN XR (GLUCOPHAGE-XR) 500 mg, Daily with evening meal metoprolol succinate XL (TOPROL-XL) 100 mg, Daily omeprazole (PRILOSEC) 40 mg, Daily before breakfast Vitals: Vitals: 04/12/25 0903 04/12/25 0904 BP: 140/70 130/80 BP Location: Left arm Right arm Patient Position: Sitting Sitting Pulse: 68 Weight: 137 kg (301 lb) Height: 1.727 m (5' 8 ) EKG done in office today Review of Systems Cardiovascular: Positive for dyspnea on exertion. Respiratory: Positive for cough and snoring. All other systems reviewed and are negative. Objective Physical Exam Constitutional: Appearance: Normal appearance. HENT: Nose: Nose normal. Neck: Vascular: No carotid bruit. Cardiovascular: Rate and Rhythm: Normal rate. Pulses: Normal pulses. Heart sounds: Normal heart sounds. Pulmonary: Effort: Pulmonary effort is normal. Abdominal: General: Bowel sounds are normal. Palpations: Abdomen is soft. Musculoskeletal: General: Normal range of motion. Cervical back: Normal range of motion. Right lower leg: No edema. Left lower leg: No edema. Skin: General: Skin is warm and dry. Neurological: General: No focal deficit present. Mental Status: He is alert. Psychiatric: Mood and Affect: Mood normal. Behavior: Behavior normal. Thought Content: Thought content normal. Judgment: Judgment normal. Assessment and Plan: 1. Shortness of breath Follow Up In Cardiology ECG 12 Lead Transthoracic Echo Complete Nuclear Stress Test Home sleep apnea test (HSAT) 2. Congestive heart failure, unspecified HF chronicity, unspecified heart failure type (Multi) Transthoracic Echo Complete Nuclear Stress Test 3. Essential (primary) hypertension Transthoracic Echo Complete Nuclear Stress Test 4. BMI 45.0-49.9, adult (Multi) Transthoracic Echo Complete Nuclear Stress Test 5. Never smoked tobacco 6. Obstructive sleep apnea syndrome Home sleep apnea test (HSAT) 7. Snoring Home sleep apnea test (HSAT) Scribe Attestation By signing my name below, Nadiya Byers LPN , Scribe attest that this documentation has been prepared under the direction and in the presence of MD Shayna. Provider Attestation - Scribe documentation All medical record entries made by the Scribe were at my direction and personally dictated by me. Ihave reviewed the chart and agree that the record accurately reflects my personal performance of the history, physical exam, discussion and plan. documented in this encounter Plan of Treatment DateTypeDepartmentCare Team (Latest Contact Info)Kcrghpiixch19/13/2026 8:45 AM ESTAppointment [facility] [place] [facility] [address] [place] [address], [place] [address] 04/30/2025 10:30 AM ESTAppointment [facility] [address] [place] [address], [place] [phone] 04/30/2025 11:00 AM ESTAppointment [facility] [address] [place], [place] [address] [place] [address] 04/30/2025 11:30 AM ESTAppointment [facility] [address] [place], [place] [address] [place] [phone] 05/01/2025 11:30 AM ESTAppointment [facility] [address] [place], [place] [address] [place] [address] 05/01/2025 11:45 AM ESTAppointment [facility] [place] [facility] [address] [place], [place] [address] [place] [address] 07/19/2025 9:[address] [facility] [address] [place] [phone] Wale Ragland MD [address] [facility], [address] [place] [address] NameTypePriorityAssociated DiagnosesOrder ScheduleTransthoracic Echo Complete EchocardiographyRoutine Shortness of breath Congestive heart failure, unspecified HF chronicity, unspecified heart failure type (Multi) Essential (primary) hypertension BMI 45.0-49.9, adult (Multi) Expected: 04/12/2025 (Approximate), Expires: 04/12/2027Nuclear Stress Test Cardiac Nuclear MedicineRoutine Shortness of breath Congestive heart failure, unspecified HF chronicity, unspecified heart failure type (Multi) Essential (primary) hypertension BMI 45.0-49.9, adult (Multi) Expected: 04/12/2025 (Approximate), Expires: 04/12/2027Home sleep apnea test (HSAT)Sleep CenterRoutine Shortness of breath Obstructive sleep apnea syndrome Snoring Expected: 04/12/2025 (Approximate), Expires: 04/12/2026documented as of this encounter Procedures Procedure NamePriorityDate/TimeAssociated DiagnosisCommentsECG 12-LEADRoutine 04/12/2025 9:00 AM EST Shortness of breath documented in this encounter Results * ECG 12 Lead (04/12/2025 9:00 AM EST)Specimen (Source)Anatomical Location / LateralityCollection Method / VolumeCollection TimeReceived Time Narrative CPACS - 04/12/2025 9:35 AM EST Normal sinus rhythm Authorizing ProviderResult TypeResult StatusMourhaf Obie JUNIORECChristie ORDERABLES Final ResultPerforming OrganizationAddressCity/State/ZIP CodePhone Number CPACS documented in this encounter Visit Diagnoses Diagnosis Shortness of breath- Primary Congestive heart failure, unspecified HF chronicity, unspecified heart failure type (Multi) Essential (primary) hypertension Unspecified essential hypertension BMI 45.0-49.9, adult (Multi) Never smoked tobacco Obstructive sleep apnea syndrome Obstructive sleep apnea (adult) (pediatric) Snoring Other dyspnea and respiratory abnormality documented in this encounter Additional Health Concerns AssessmentNoted TimeA fall risk assessment has been completed for the patient 04/12/2025 9:03 AM ESTdocumented as of this encounter Care Teams Team MemberRelationshipSpecialtyStart DateEnd Date Constantino Lomax DO [address] [place] [address] PCP - GeneralFamily Qlpcayxp08/22/25documented as of this encounter
--- OUTSIDE RECORDS SUMMARY | 2025-04-15 06:45 | XMS_ITS | CCD ---
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 [employer] Name Role Phone Celso Colon Unavailable DARLENE, DR HOUSTON Attending Unavailable DARLENE, DR HOUSTON Consulting Unavailable GIRSUSAN, DR HOUSTON Primary Care Unavailable GIRVIN, DR HOUSTON Admitting Unavailable GIRSUSAN, DR HOUSTON Attending Unavailable GIRSUSAN, DR HOUSTON Consulting Unavailable GIRSUSAN, DR HOUSTON Primary Care Unavailable GIRVIN, DR HOUSTON Admitting Unavailable GIRSUSAN, DR HOUSTON Attending Unavailable GIRSUSAN, DR HOUSTON Consulting Unavailable GIRSUSAN, DR HOUSTON Primary Care Unavailable GIRVIN, DR HOUSTON Admitting Unavailable GIRSUSAN, DR HOUSTON Attending Unavailable GIRVIN, DR HOUSTON Consulting Unavailable GIRSUSAN, DR HOUSTON Primary Care Unavailable GIRSUSAN, DR HOUSTON Admitting Unavailable Celso Colon DO Primary Care Provider Teena Aparicio APRN Attending Provider Celso Colon DO Attending Provider Celso Colon Attending Unavailable Darlene, Celso Admitting Unavailable Medications Current Medications MedicationDrug Class(es)DatesSig (Normalized)Sig (Original)mecobalamin 1 mg chewable tablet (4 sources)Start: 00-91-3969wvim 1 tablet by mouth once dailyMecobalamin (Vitamin B12) 1,000 mcg tablet,chewable Active 1000 MCG PO Daily December 14, 2023 12:00am Complies with drug ogyysrf95 hr metoprolol succinate 100 mg extended release oral tablet (17 sources)beta-Adrenergic BlockerStart: 10-31-2023 End: 15-86-9030cyjx 1 tablet by mouth once dailyMetoprolol Succinate 100 mg tablet extended release 24 hr Active 100 MG PO Daily April 04, 2024 11:18am Complies with drug therapyStart: 52-62-8305eqdu 1 tablet by mouth every twenty-four hoursMetoprolol Succinate ER 100 MG 1 tablet Orally Once a day Feb, Activeomeprazole 40 mg delayed release oral capsule (19 sources)Proton Pump InhibitorStart: 12-14-2023 End: 53-78-8007enrx 1 capsule by mouth at mealtimeOmeprazole 40 mg capsule,delayed release(DR/EC) Active 40 MG PO Daily December 18, 2024 11:34am *take 15 min prior to a meal Complies with drug therapyStart: 10-31-2023 End: 88-26-2909grkj 1 capsule by mouth once dailyOmeprazole 20 mg capsule,delayed release(DR/EC) Discontinued 20 MG PO Daily October 31, 2023 12:00amAugust 2023 8:55amStart: 34-51-2266pomo 1 capsule by mouth every twenty-four hoursOmeprazole 20 MG 1 capsule Orally Once a day for 90 days Feb, Activemicroencapsulated potassium chloride 20 meq extended release oral tablet (9 sources)Start: 39-81-5320ppzm 1 tablet by mouth every twenty-four hoursKlor- Con M20 20 MEQ 1 tablet with food Orally Once a day for 30 days May, ActiveVitamin B 12 1000 mcg (10 sources)Start: 16-95-9094Cksqoys B 12 1000 mcg as directed Orally Once a day May, Active Completed/Discontinued Medications MedicationDrug Class(es)DatesSig (Normalized)Sig (Original)[id number] 200 actuat albuterol 0.09 mg/actuat metered dose inhaler (3 sources)beta2-Adrenergic AgonistStart: 09-26-2024 End: 59-53-9019ggqn 1 puff(s) by inhalation every four to six hours as needed for wheezingAlbuterol Sulfate 90 mcg/actuation HFA aerosol inhaler Discontinued 2 PUFF INHALATION EVERY 4-6 HOURS as needed for shortness of breath or wheezing 8.5 September 26, 2024 12:00am December 18, 2024 10:53amamLODIPine 10 mg oral tablet (20 sources)Dihydropyridine Calcium Channel BlockerStart: 10-31-2023 End: 97-97-6576oxox 0.5 tablet by mouth once daily, then take 1 tablet by mouth once dailyAmlodipine (Norvasc) 10 mg tablet Discontinued 0 PO Daily February 13, 2024 11:54am September 04, 2024 9:47am take 1/2 of a 10 MG tablet orally daily;take 0.5 tablet by mouth once dailyNorvasc 10 mg 1/2 tablet Orally Once a day Activedoxycycline hyclate 100 mg oral capsule (3 sources)Tetracycline-class DrugStart: 09-26-2024 End: 83-31-8357wyaz 1 capsule by mouth twice dailyDoxycycline Hyclate 100 mg capsule Discontinued 100 MG PO Twice daily 04 02September 26, 2024 12:00am December 18, 2024 10:54amfurosemide 40 mg oral tablet (20 sources)Loop DiureticStart: 10-31-2023 End: 40-70-0848Hquvtyhlet 40 mg tablet Discontinued 0 .ROUTE .COMPLEX February 13, 2024 11:53am September 0459:47am TAKE 1 TABLET EVERY MORNINGStart: 10-31-2023 End: 41-99-8965iaka 1 tablet by mouth once daily in the morningFurosemide 40 mg tablet Discontinued 40 MG PO .COMPLEX October 31, 2023 12:00am October 31, 2023 10:22am 40 mg orally ;TAKE 1 TABLET BY MOUTH ONCE EVERY MORNING;Start: 58-77-6001cdlf 1 tablet by mouth once daily in the morningLasix 40 MG 1 tablet Orally qd am for 30 days May, Activelosartan potassium 50 mg oral tablet (13 sources)Angiotensin 2 Receptor BlockerStart: 10-31-2023 End: 55-42-8015ylly 1 tablet by mouth once dailyLosartan 50 mg tablet Discontinued 50 MG PO Daily February 13, 2024 11:54am September 04, 2024 9:47am Start: 45-91-9809tspn 1 tablet by mouth every twenty-four hoursLosartan Potassium 50 MG 1 tablet Orally Once a day for 90 days Nov, ActiveStart: 64-56-0467lshs 1 tablet by mouth every twenty-four hoursLosartan Potassium 25 MG 1 tablet Orally Once a day for 30 days Nov, Jeyjyk77 hr metFORMIN hydrochloride 500 mg extended release oral tablet (17 sources)BiguanideStart: 12-18-2024 End: 31-46-7125shrm 2 tablets by mouth once daily at dinnerMetformin 500 mg tablet extended release 24 hr Discontinued 1000 MG PO Every evening 180 90 December 18, 2024 10:55am December 18, 2024 11:12am take 2 (500 mg) tablets with evening mealStart: 12-20-2023 End: 71-65-2967pxkx 2 tablets by mouth once daily in the eveningMetformin 500 mg tablet extended release 24 hr Active 0 PO Every evening 180 December 181:34am take 2 (500 MG) tablets orally every evening; Complies with drug therapyStart: 12-14-2023 End: 77-21-4151riul 1 tablet by mouth once daily in the eveningMetformin 1,000 mg tablet extended release 24 hr Discontinued 1000 MG PO Every evening December 14, 2023 12:00am December 20, 2023 1:27pm *with PM mealStart: 10-31-2023 End: 20-46-2189qztp 1 tablet by mouth once dailyMetformin 500 mg tablet extended release 24 hr Discontinued 500 MG PO .COMPLEX October 31, 2023 12:00am December 14, 2023 8:52am 500 mg orally 1 tablet with evening meal Orally Once a day; Start: 45-78-5784mmxs 1 tablet by mouth every twenty-four hoursmetFORMIN HCl ER 500 MG 1 tablet with evening meal Orally Once a day for 90 days Nov, ActivepredniSONE 20 mg oral tablet (3 sources)Start: 09-26-2024 End: 69-83-3663cflc 2 tablets by mouth once dailyPrednisone 20 mg tablet Discontinued 20 MG PO .COMPLEX September 26, 2024 12:00am December 18, 2024 10:55am Take 2 tabs po daily x 5 days Problems Active Problems Problem ClassificationProblemDateDocumented DateEpisodic/ChronicCardiac dysrhythmias (4 sources)Other premature depolarization; 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 Deficiency and other anemia (15 sources)Anemia; Translations: [Anemia, unspecified]96-66-6069Sqntukne Deficiency and other anemia (1 source)Anemia, unspecified; Translations: [Anemia, unspecified]12-14-2023 EpisodicDiabetes mellitus without complication (6 sources)Type 2 diabetes mellitus without complication; Translations: [Type 2 diabetes mellitus without complications]24-53-7866UfbdzjtXmqnqrpw mellitus without complication (4 sources)Hyperglycemia, unspecified; Translations: [HYPERGLYCEMIA UNSPECIFIED] Onset: 75-70-7789VvftrlflUmrpfeunz of lipid metabolism (20 sources)Hyperlipidemia; Translations: [Hyperlipidemia, unspecified]Onset: 68-01-7492IlxsstpGpwsieuluq disorders (18 sources)Gastroesophageal reflux disease; Translations: [Gastro-esophageal reflux disease without esophagitis]ChronicEssential hypertension (20 sources)Essential hypertension; Translations: [Essential (primary) hypertension]ChronicGenitourinary symptoms and ill-defined conditions (4 sources)Nocturia; Translations: [Nocturia]Onset: 06-03-3409Ctlkyblg Nutritional deficiencies (3 sources)Deficiency of other specified B group vitamins; Translations: [DEFICIENCY SPEC B GROUP VITAMINS]Onset: 51-42-4344KyqdawnfNkpdt aftercare (7 sources)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; Translations: [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]Onset: 86-71-1641RwlbocqyIgyxt aftercare (5 sources)Long-term current use of drug therapy; Translations: [Other assisted (current) drug therapy]72-02-8167QehydvsbNaqql diseases of veins and lymphatics (10 sources)Peripheral venous insufficiency; Translations: [Venous insufficiency (chronic) (peripheral)]EpisodicOther diseases of veins and lymphatics (2 sources)Venous insufficiency (chronic) (peripheral)EpisodicOther lower respiratory disease (4 sources)Acute lower respiratory tract infection; Translations: [Unspecified acute lower respiratory infection]72-37-7387QimylpjlFfrrn nervous system disorders (5 sources)Loss of taste; Translations: [Parageusia]37-13-3232BbqlstucJnefc nervous system disorders (1 source)Parageusia; Translations: [Disturbances of sensation of smell and taste]32-00-9467QoeypmqyLatny non-traumatic joint disorders (2 sources)Pain in right shoulder; Translations: [Bilateral shoulder pain] 44-38-8035GydbycbyEbtvl nutritional; endocrine; and metabolic disorders (2 sources)Body mass index 40+ - severely obese; Translations: [Body mass index (BMI) 45.0-49.9, adult]93-05-8840ZatohunGcowb nutritional; endocrine; and metabolic disorders (1 source)Abnormal weight lossEpisodicOther nutritional; endocrine; and metabolic disorders (2 sources)Weight increased; Translations: [Abnormal weight gain]12-18-2024 EpisodicOther screening for suspected conditions (not mental disorders or infectious disease) (10 sources)Elevated prostate specific antigen [PSA]; Translations: [Other specified abnormal findings of bloodchemistry]Onset: 17-30-6773TfblkjkiZevfx skin disorders (1 source)Rash and other nonspecific skin eruptionEpisodicResidual codes; unclassified (8 sources)Edema, unspecified; Translations: [EDEMA UNSPECIFIED]Onset: 84-58-4599Ysqkaqsr Past or Other Problems Problem ClassificationProblemDateDocumented DateEpisodic/ChronicOther nutritional; endocrine; and metabolic disorders (2 sources)Abnormal weight gain; Translations: [ABNORMAL WEIGHT GAIN]Onset: 67-48-5524Cagdapzc Results Test NameValueInterpretationReference RangeFacilityBasophils Auto (Bld) [#/Vol] Ordered By: Celso Colon on 01-73-0800Dbygqtftm (Bld) [#/Vol]0.0 10 3/uL0.0-0.1 [facility] HospitalBasophils/100 WBC Auto (Bld)Ordered By: Celso Colon on 45-86-9150Mrhqxgefu/100 WBC (Bld)0.4 %0.2-2.0[facility] HospitalCholesterol in LDL Calc [Mass/Vol]Ordered By: Celso Colon on 56-37-0093Cescowfxmiq in LDL [Mass/Vol]102.0 mg/dLKnox Community HospitalComment on above:<100 mg/dl BBVLOZT989-015 mg/dl NEAR OR ABOVE AQNZHBT674- 159 mg/dl BORDERLINE YHVT463-777 mg/dl HIGH>190 mg/dl VERY HIGHCholesterol in VLDL Calc [Mass/Vol]Ordered By: Celso Colon on 11-77-4344Vmvhqduacyi in VLDL [Mass/Vol]15.0 mg/dLKnox Community HospitalEosinophils/100 WBC Auto (Bld)Ordered By: Celso Colon on 27-79-5180Ehqwmskkgbw/100 WBC (Bld)1.6 %0.9-7.0 [facility] HospitalErythrocyte distribution width Auto (RBC) [Ratio]Ordered By: Celso Colon on 01-54-7833Eovnxowqqei distribution width (RBC) [Ratio]12.8 %11.0-15.0[facility] HospitalGlobulin Calc (S) [Mass/Vol]Ordered By: Celso Colon on 07-83-6920Fiymyutk (S) [Mass/Vol]4.3 g/dL [facility] HospitalGlomerular filtration rate (GFR) estimation in non- AmericanOrdered By: Celso Colon on 96-86-5633AZX/1.73 sq M.predicted among non-blacks MDRD (S/P/Bld) [Vol rate/Area]mL/min/{1.73_m2}>=60 mL/min/1.73m 2FKettering Health PrebleGlucose mean value [Mass/volume] in Blood Estimated from glycated hemoglobinOrdered By: Celso Colon on 13-45-0385Ojtwxea glucose Estimated from glycated hemoglobin (Bld) [Mass/Vol]143 mg/dLKnox Community HospitalHematocrit Auto (Bld) [Volume fraction] Ordered By: Celso Colon on 56-81-0253Kqxlggfunc (Bld) [Volume fraction]43.0 % 42.0-54.0[facility] HospitalHemoglobin A1c percentageOrdered By: Celso Colon on 37-45-5988LwG0c (Bld) [Mass fraction]6.6 %High4.5-6.2FKettering Health PrebleComment on above:ADA RECOMMENDED LIMIT 4.0 - 6.0ADA THERAPEUTIC TARGET < 7.0ACTION SUGGESTED> 7.0Hemoglobin [Mass/volume] in Blood Ordered By: Celso Colon on 93-63-9089Stngdvkbfk (Bld) [Mass/Vol]14.6 g/dL 14.0-18.0[facility] HospitalLaboratory - Chemistry and Chemistry - challengeOrdered By: Celso Colon on 86-96-5575Iadckuu [Mass/Vol]3.5 g/dL 3.4-5.0[facility] HospitalALP [Catalytic activity/Vol]93 U/L46-116 [facility] HospitalALT [Catalytic activity/Vol]9 U/LZjt82-70 [facility] HospitalAST [Catalytic activity/Vol]10 U/THpk82-53 [facility] HospitalBilirubin [Mass/Vol]0.9 mg/dL0.2-1.0[facility] HospitalCalcium [Mass/Vol]8.8 mg/dL8.5-10.1FKettering Health PrebleChloride [Moles/Vol]99 mmol/X60-576NrerolqfnKnox Community HospitalCholesterol [Mass/Vol]180 mg/dL<=200[facility] Cholesterol in HDL [Mass/Vol]63 mg/bCOopl82-45XoblemepuKnox Community Hospital Comment on above:> or =60 mg/dl - LOW CARDIOVASCULAR RISK<40 mg/dl - HIGH CARDIOVASCULAR RISKCO2 [Moles/Vol]28.4 mmol/L21.0-32.0[facility] HospitalCobalamin (Vitamin B12) [Mass/Vol]730 pg/iZ380-5395LeonvaqjeKnox Community HospitalComment on above:Performed at: [facility] [address] [id number] Director: Brien Garcia PhD, Phone: [phone] Creatinine [Mass/Vol]0.91 mg/dL0.70-1.30[facility] GFR/1.73 sq M.predicted MDRD (S/P/Bld) [Vol rate/Area]mL/min/{1.73_m2}>=60 mL/min/1.73m 2FKettering Health PrebleGlucose [Mass/Vol]160 mg/dLHigh 74-106[facility] HospitalPotassium [Moles/Vol]4.4 mmol/L3.5-5.1 [facility] HospitalProtein [Mass/Vol]7.8 g/dL6.4-8.2FAvita Health System Galion Hospitalodium [Moles/Vol]137 mmol/T048-056NybreonjvKnox Community HospitalTriglyceride [Mass/Vol]75 mg/dL<=150Kn[facility] HospitalTSH Qn1.398 m[IU]/L0.358-3.740[facility] HospitalUrea nitrogen [Mass/Vol]16.0 mg/dL7.0-18.0[facility] HospitalUrea nitrogen/Creatinine [Mass ratio]17.6 mg/mgKn[facility] Community Hospital Bilirubin Ql (U)NegativeNEGATIVEKnox Community HospitalGlucose (U) [Mass/Vol]NegativeNEGATIVEKnox Community HospitalKetones Ql (U) NegativeNEGATIVEKnox Community HospitalpH (U)5.5 [pH]5.0-9.0[facility] Hospitalpecific gravity (U) [Rel density]>=1.030Abnormal 1.005-1.025Kn[facility] HospitalUrobilinogen Qn (U)2.0 {Domingo'U}/dLAbnormal0.2-1.0[facility] HospitalLaboratory - Hematology and Cell countsOrdered By: Celso Colon on 77-65-8300Pdzfonwu granulocytes/100 WBC (Bld)0.4 %0.0-0.5FKettering Health Preble Laboratory - Specimen informationOrdered By: Celso Colon on 12-15-2024 Appearance (U)CLEARCLESelect Medical Cleveland Clinic Rehabilitation Hospital, BeachwoodColor (U)YELLOWGeorgetown Behavioral HospitalLaboratory - UrinalysisOrdered By: Celso Colon on 66-18-4665Jhfotvgkd esterase Test strip Ql (U)NegativeNEGSt. Anthony's HospitalMucus Ql (Urine sed)LARGEAbnormalNONE SEENKnox Community HospitalNitrite Ql (U)NegativeNEGATIVEKnox Community HospitalProtein Ql (U)TRACE mg/dLNEG/TRACEKnox Community Hospital Leukocytes [#/volume] corrected for nucleated erythrocytes in Blood by Automated counOrdered By: Celso Colon on 35-34-3845HVL corrected for nucl RBC Auto (Bld) [#/Vol]7.1 10 3/uL4.0-11.0[facility] HospitalLymphocytes Auto (Bld) [#/Vol]Ordered By: Celso Colon on 38-73-1446Crtunlxtwpk (Bld) [#/Vol]1.3 10 3/uL1.2-3.8[facility] HospitalLymphocytes/100 WBC Auto (Bld) Ordered By: Celso Colon on 45-61-2599Gfkesksedvx/100 WBC (Bld)17.7 %Low 20.5-60.0[facility] Auto (RBC) [Entitic mass]Ordered By: Celso Colon on 41-11-6017ULC (RBC) [Entitic mass]30.7 pg25.9-34.0[facility] HospitalMCHC Auto (RBC) [Mass/Vol]Ordered By: Celso Colon on 20-26-8486GDIL (RBC) [Mass/Vol]34.0 g/dL29.9-35.2FKettering Health PrebleMCV Auto (RBC) [Entitic vol]Ordered By: Celso Colon on 37-95-2265LFS (RBC) [Entitic vol]90.3 fL80.0-94.0[facility] HospitalMonocytes Auto (Bld) [#/Vol]Ordered By: Celso Colon on 33-50-7278Imaobsdoy (Bld) [#/Vol] 0.5 10 3/uL0.3-0.8[facility] HospitalMonocytes/100 WBC Auto (Bld) Ordered By: Celso Colon on 72-79-6779Vmddadkuu/100 WBC (Bld)6.9 %1.7-12.0 [facility] HospitalNeutrophils Auto (Bld) [#/Vol]Ordered By: Celso Colon on 34-64-6766Dnuspaltqku (Bld) [#/Vol]5.2 10 3/uL1.4-6.5FKettering Health PrebleNeutrophils/100 WBC Auto (Bld)Ordered By: Celso Colon on 71-24-2996Rdrsmvvpdfu/100 WBC (Bld)73.0 %43.0-75.0[facility] HospitalNo Panel InformationOrdered By: Celso Colon on 76-88-1491Qavpjnzpfvl # (Auto)0.1 10 3/uL0.0-0.7FKettering Health PrebleFolate12.70 ng/mL 8.60-58.90Kn[facility] HospitalFree Prostate Specific Antigen0.29 ng/mLN/AFKettering Health PrebleComment on above:[employer]manuel ECLIA methodology.Immature Granulocyte # (Auto)0.03 10 3/uL0.00-0.03[facility] HospitalProstate Specific Antigen Total0.8 ng/mL0.0-4.0[facility] HospitalComment on above:[employer] ECLIA methodology.According to the [place] [employer], Serum PSAshould decrease and remain at undetectable levels afterradical prostatectomy. The AUA defines biochemicalrecurrence as an initial PSA value 0.2 ng/mL or greaterfollowed by a subsequent confirmatory PSA value 0.2 ng/mLor greater. Values obtained with different assay methods orkits cannot be used interchangeably. Results cannot beinterpreted as absolute evidence of the presence or absenceof malignant disease.Urine BacteriaSMALL #/HPFAbnormalNONE [facility] HospitalUrine Occult BloodNegativeNEGATIVEKnox Community HospitalUrine Other CastsNONE SEEN #/LPFNONE [facility] HospitalUrine Other CrystalsNone Seen #/HPFNone [facility] HospitalUrine RBC0-2 #/HPF0-2FKettering Health PrebleUrine Squamous Epithelial CellsFEW #/LPFAbnormalNONE/RAREKnox Community HospitalUrine WBC0-2 #/HPF AbnormalNONE [facility] HospitalPlatelet mean volume Auto (Bld) [Entitic vol]Ordered By: Celso Colon on 71-90-2741Mmpinvnd mean volume (Bld) [Entitic vol]10.2 fL9.5-13.5FKettering Health PreblePlatelets Auto (Bld) [#/Vol]Ordered By: Celso Colon on 18-63-9926Iupondhrx (Bld) [#/Vol] 161 10 3/mP671-769XizbyfrogKnox Community HospitalRBC Auto (Bld) [#/Vol]Ordered By: Celso Colon on 06-82-2596PEW (Bld) [#/Vol]4.76 10 6/uL4.70-6.10[facility]acon[facility] Hospitalerum or plasma albumin/globulin mass ratioOrdered By: Celso Colon on 42-76-0908Wxflmzr/Globulin [Mass ratio]0.8 {ratio}[facility] Hospitalerum or plasma anion gap determinationOrdered By: Celso Colon on 87-31-4695Xzfiy gap [Moles/Vol]14.0 mmol/LFAvita Health System Galion Hospitalerum or plasma free prostate specific antigen (PSA)/total PSA ratio Ordered By: Celso Colon on 43-54-0170Mzyi PSA/Total PSA [Mass fraction]36.3 %. [facility] HospitalComment on above:The table below lists the probability of prostate cancer formen with non-suspicious SANDRA results andtotal PSA between4 and 10 ng/mL, by patient age (Sheila et al, OBI 1998,279:1542). % Free PSA 50-64 yr 65-75 yr 0.00-10.00% 56% 55% 10.01-15.00% 24% 35% 15.01- 20.00% 17% 23% 20.01-25.00% 10% 20% >25.00% 5% 9%Please note: Sheila et al did not make specific recommendations regarding the use of percent free PSA for any other population of men.Performed at: [facility] [id number] Director: Brien Garcia PhD, Phone: [phone] or plasma total cholesterol/high density lipoprotein (HDL) cholesterol mass rat Ordered By: Celso Colon on 22-72-1382Tsendfmqwjz.total/Cholesterol in HDL [Mass ratio]2.9 {ratio}[facility] HospitalComment on above:3.3 - 4.4 LOW RISK4.4 - 7.1 AVERAGE RISK7.1 - 11.0 MODERATE RISK>11.0 HIGH RISKUrine Cultureon 88-98-7213Yocvxohe identified Cx Nom (U)<9,000 colonies/ml mixed bacterial skin contaminants 2 Days PERFORMED BY: [facility] [address] [place] [address] PATHOLOGIST BIOMEDICAL INSTRUMENT TECHNICIAN TYSON LIU M.D.NormalThe Swain Community Hospital Physician GroupComment on above: Performed By: #### CUU #### [facility] [address] [place] [address] USAUrine cultureOrdered By: Celso Colon on 08-30-2025 Bacteria identified Cx Nom (U)2 DaysKnox Community HospitalBasophils Auto (Bld) [#/Vol]on 22-04-7333Hlzowdsnp (Bld) [#/Vol]0.0 10 3/uL0.0-0.1 [facility] HospitalBasophils/100 WBC Auto (Bld)on 12-12-2023 Basophils/100 WBC (Bld)0.5 %0.2-2.0[facility] HospitalCholesterol in LDL Calc [Mass/Vol]on 04-48-5574Mudbwrqympk in LDL [Mass/Vol]101.0 mg/dL [facility] HospitalComment on above:<100 mg/dl ICMHZNA213-300 mg/dl NEAR OR ABOVE FHGCDLP760-647 mg/dl BORDERLINE LCBG498-095 mg/dl HIGH>190 mg/dl VERY HIGHCholesterol in VLDL Calc [Mass/Vol]on 27-20-8737Dajaauuzuqa in VLDL [Mass/Vol]22.6 mg/dLKnox Community HospitalEosinophils/100 WBC Auto (Bld)on 81-78-4343Puahjmdbmup/100 WBC (Bld)1.6 %0.9-7.0[facility] HospitalErythrocyte distribution width Auto (RBC) [Ratio]on 12-12-2023 Erythrocyte distribution width (RBC) [Ratio]12.6 %11.0-15.0[facility] HospitalEstimated glomerular filtration rate (GFR) non- Americanon 70-53-4572LXE/1.73 sq M.predicted among non-blacks MDRD (S/P/Bld) [Vol rate/Area]mL/min/{1.73_m2}>=60[facility] HospitalGlobulin Calc (S) [Mass/Vol]on 98-01-0368Euuyaxxo (S) [Mass/Vol]3.9 g/dLKnox Community HospitalGlucose mean value [Mass/volume] in Blood Estimated from glycated hemoglobinon 64-89-0917Diqxmwv glucose Estimated from glycated hemoglobin (Bld) [Mass/Vol]143 mg/dLKnox Community HospitalHematocrit Auto (Bld) [Volume fraction]on 49-43-4697Trlxtiysde (Bld) [Volume fraction]44.3 %42.0-54.0 [facility] HospitalHemoglobin [Mass/volume] in Bloodon 12-12-2023 Hemoglobin (Bld) [Mass/Vol]14.9 g/dL14.0-18.0[facility] - Chemistry and Chemistry - challengeon 70-97-8991Bkjsing [Mass/Vol] 3.4 g/dL3.4-5.0[facility] HospitalALP [Catalytic activity/Vol]94 U/L40-739AzxlmzpbzKnox Community HospitalALT [Catalytic activity/Vol]24 U/L 16-63Kn[facility] HospitalAST [Catalytic activity/Vol]9 U/SRyf01-15 [facility] HospitalBilirubin [Mass/Vol]1.0 mg/dL0.2-1.0[facility] HospitalCalcium [Mass/Vol]9.4 mg/dL8.5-10.1FKettering Health PrebleChloride [Moles/Vol]97 mmol/TMzd98-135AwfapnrzfKnox Community HospitalCholesterol [Mass/Vol]187 mg/dL<=200[facility] Cholesterol in HDL [Mass/Vol]64 mg/gPNpcv51-38ShaqjaewjKnox Community Hospital Comment on above:> or =60 mg/dl - LOW CARDIOVASCULAR RISK<40 mg/dl - HIGH CARDIOVASCULAR RISKCO2 [Moles/Vol]29.7 mmol/L21.0-32.0[facility] HospitalCobalamin (Vitamin B12) [Mass/Vol]626.0 pg/mL193.0-986.0[facility] HospitalCreatinine [Mass/Vol]1.05 mg/dL0.70-1.30[facility] HospitalGFR/1.73 sq M.predicted MDRD (S/P/Bld) [Vol rate/Area] mL/min/{1.73_m2}>=60[facility] HospitalGlucose [Mass/Vol]151 mg/dL Tlac30-811YbjxynvhwKnox Community HospitalPotassium [Moles/Vol]4.3 mmol/L 3.5-5.1FKettering Health PrebleProtein [Mass/Vol]7.3 g/dL6.4-8.2 [facility] Hospitalodium [Moles/Vol]135 mmol/BUpm896-026TwaoyijhoKnox Community HospitalTriglyceride [Mass/Vol]113 mg/dL<=150Kn[facility] HospitalTSH Qn1.592 m[IU]/L0.358-3.740[facility] Urea nitrogen [Mass/Vol]16.0 mg/dL7.0-18.0[facility] HospitalUrea nitrogen/Creatinine [Mass ratio]15.2 mg/mgKn[facility] Community Hospital Bilirubin Ql (U)NegativeNEGSt. Anthony's HospitalGlucose (U) [Mass/Vol]NegativeNEGATIVEKnox Community HospitalKetones Ql (U)TRACE mg/dLAbnormalNEGSt. Anthony's HospitalpH (U)5.5 [pH]5.0-9.0 [facility] Hospitalpecific gravity (U) [Rel density]>=1.030 Abnormal1.005-1.025Kn[facility] HospitalUrobilinogen Qn (U)1.0 {Domingo'U}/dL0.2-1.0[facility] HospitalLaboratory - Hematology and Cell countson 24-92-2562IdK9e (Bld) [Mass fraction]6.6 %High4.5-6.2FKettering Health PrebleComment on above:ADA RECOMMENDED LIMIT 4.0 - 6.0ADA THERAPEUTIC TARGET < 7.0ACTION SUGGESTED> 7.0Immature granulocytes/100 WBC (Bld) 0.3 %0.0-0.5FKettering Health PrebleLaboratory - Specimen informationon 07-47-1233Mdgteieyub (U)CLEARCLEARFKettering Health PrebleColor (U) YELLOWYELLOWKnox Community HospitalLaboratory - Urinalysison [id number] casts LM Ql (Urine sed)FEWKnox Community Hospital Leukocyte esterase Test strip Ql (U)NegativeNEGSt. Anthony's HospitalMucus Ql (Urine sed)SMALLAbnormalNONE SEENKnox Community HospitalNitrite Ql (U)NegativeNEGSt. Anthony's HospitalProtein Ql (U)NegativeNEG/TRACEKnox Community HospitalLeukocytes [#/volume] corrected for nucleated erythrocytes in Blood by Automated counon 73-92-7800KXH corrected for nucl RBC Auto (Bld) [#/Vol]7.5 10 3/uL4.0-11.0[facility] HospitalLymphocytes Auto (Bld) [#/Vol]on 86-29-9725Nkueltjjsmu (Bld) [#/Vol]1.3 10 3/uL1.2-3.8[facility] HospitalLymphocytes/100 WBC Auto (Bld)on 31-80-8409Dknesjgtnre/100 WBC (Bld)17.7 %Low20.5-60.0[facility] HospitalH Auto (RBC) [Entitic mass]on 89-20-4691MJH (RBC) [Entitic mass]30.3 pg25.9-34.0[facility] HospitalMCHC Auto (RBC) [Mass/Vol]on 14-46-3333YMPU (RBC) [Mass/Vol]33.6 g/dL29.9-35.2FKettering Health PrebleMCV Auto (RBC) [Entitic vol]on 46-57-5731YSX (RBC) [Entitic vol] 90.0 fL80.0-94.0[facility] HospitalMonocytes Auto (Bld) [#/Vol]on 19-87-1095Qfvsellmx (Bld) [#/Vol]0.5 10 3/uL0.3-0.8[facility] HospitalMonocytes/100 WBC Auto (Bld)on 64-49-1139Dtlkymmxh/100 WBC (Bld)7.2 % 1.7-12.0[facility] HospitalNeutrophils Auto (Bld) [#/Vol]on 14-93-7922Mschpbxtaqb (Bld) [#/Vol]5.5 10 3/uL1.4-6.5FKettering Health PrebleNeutrophils/100 WBC Auto (Bld)on 90-72-5443Gtenwgsgleo/100 WBC (Bld)72.7 % 43.0-75.0[facility] HospitalNo Panel Informationon 12-12-2023 Eosinophils # (Auto)0.1 10 3/uL0.0-0.7FKettering Health PrebleFolate 10.30 ng/mL8.60-58.90Kn[facility] HospitalFree Prostate Specific Antigen0.26 ng/mLN/AFKettering Health PrebleComment on above:[employer]manuel ECLIA methodology.Immature Granulocyte # (Auto)0.02 10 3/uL0.00-0.03Kn[facility] HospitalProstate Specific Antigen Total0.9 ng/mL0.0-4.0Kn[facility] HospitalComment on above:[employer] ECLIA methodology.According to the [place] [employer], Serum PSAshould decrease and remain at undetectable levels afterradical prostatectomy. The AUA defines biochemicalrecurrence as an initial PSA value 0.2 ng/mL or greaterfollowed by a subsequent confirmatory PSA value 0.2 ng/mLor greater. Values obtained with different assay methods orkits cannot be used interchangeably. Results cannot beinterpreted as absolute evidence of the presence or absenceof malignant disease.Urine BacteriaNONE SEEN #/HPFNONE [facility] Urine Culture ReflexedALREADY ORDEREDKnox Community HospitalUrine Occult BloodNegativeNEGATIVEKnox Community HospitalUrine Other Casts SEEN #/LPFAbnormalNONE [facility] HospitalUrine RBCNONE SEEN #/HPF0-2FKettering Health PrebleUrine Squamous Epithelial CellsFEW #/LPFAbnormalNONE/RAREKnox Community HospitalUrine WBCNONE SEEN #/HPF NONE [facility] HospitalPlatelet mean volume Auto (Bld) [Entitic vol]on 50-21-9725Ensvkueh mean volume (Bld) [Entitic vol]10.3 fL 9.5-13.5FKettering Health PreblePlatelets Auto (Bld) [#/Vol]on 12-02-0606Kjpoqadol (Bld) [#/Vol]174 10 3/cC842-513BbhuluwhfKnox Community HospitalRBC Auto (Bld) [#/Vol]on 21-74-6811SXB (Bld) [#/Vol]4.92 10 6/uL4.70-6.10 [facility] Hospitalerum or plasma albumin/globulin mass ratioon 31-14-0263Nfeysrp/Globulin [Mass ratio]0.9 {ratio}[facility] Hospitalerum or plasma anion gap determinationon 18-97-1754Lmrwu gap [Moles/Vol] 12.6 mmol/LFAvita Health System Galion Hospitalerum or plasma free prostate specific antigen (PSA)/total PSA ratioon 32-39-6549Mtbt PSA/Total PSA [Mass fraction]28.9 %.Kn[facility] Community HospitalComment on above:The table below lists the probability of prostate cancer formen with non-suspicious SANDRA results andtotal PSA between4 and 10 ng/mL, by patient age (Sheila et al, OBI 1998,279:1542). % Free PSA 50-64 yr 65-75 yr 0.00-10.00% 56% 55% 10.01-15.00% 24% 35% 15.01-20.00% 17% 23% 20.01-25.00% 10% 20% >25.00% 5% 9%Please note: Sheila et al did not make specific recommendations regarding the use of percent free PSA for any other population of men.Performed at: - [facility] [id number] Director: Brien Garcia PhD, Phone: [phone] or plasma total cholesterol/high density lipoprotein (HDL) cholesterol mass kenny 36-59-6283Vhnssjrcehl.total/Cholesterol in HDL [Mass ratio]2.9 {ratio}[facility] HospitalComment on above:3.3 - 4.4 LOW RISK4.4 - 7.1 AVERAGE RISK7.1 - 11.0 MODERATE RISK>11.0 HIGH RISKPROF CHEM 8 (BAS METB)on 11-36-3324Okxnv gap [Moles/Vol]11.0 mmol/LNormalThe [facility] St. Mary HospitalComment on above:Performed By: #### CBC #### [facility] [address] [address] [address] Juan Miguel MistryCalcium [Mass/Vol]9.2 mg/dLNormal8.5-10.1The [facility] Comment on above:Performed By: #### CBC #### [facility] [address] [address] [address] Juan Miguel MistryChloride [Moles/Vol]100 mmol/XPxldgc65-480Sjm [facility] Comment on above:Performed By: #### CBC #### [facility] [address] [address] [address] Juan Miguel MistryCO2 [Moles/Vol]27.2 mmol/OHppzew25.0-32.0The [facility] Comment on above:Performed By: #### CBC #### [facility] [address] [address] [address] Juan Miguel MistryCreatinine [Mass/Vol]1.00 mg/dLNormal0.70-1.30The [facility] HospitalComment on above:Performed By: #### CBC #### [facility] [address] [address] [address] Bullard ChangEGFR-AF MALAGASY>60Normal>=60The [facility] HospitalComment on above:Performed By: #### CBC #### [facility] [address] [place] [address] Dr. Juan Miguel RuizGFR-NON AF MALAGASY>60Normal>=60The [facility] HospitalComment on above:Performed By: #### CBC #### [facility] [address] [place] [address] Dr. Juan Miguel MistryGlucose [Mass/Vol]142 mg/dLCritically rdqj59-883Rzu [facility] HospitalComment on above:Performed By: #### CBC #### [facility] [address] [address] [address] Juan Miguel MistryPotassium [Moles/Vol]4.2 mmol/LNormal3.5-5.1The [facility] Comment on above:Performed By: #### CBC #### [facility] [address] [place] [address] Dr. Juan Miguel MistrySodium [Moles/Vol]134 mmol/LCritically ajq187-336Cqb [facility] HospitalComment on above:Performed By: #### CBC #### [facility] [address] [place] [address] Dr. Juan Miguel Almanza nitrogen [Mass/Vol]18.0 mg/dLNormal7.0-18.0The [facility] Centerment on above:Performed By: #### CBC #### [facility] [address] [place] [address] Dr. Juan Miguel Almanza nitrogen/Creatinine [Mass ratio]18.0 mg/mgNormalThe [facility] St[facility] HospitalComment on above:Performed By: #### CBC #### [facility] [address] [place] [address] Dr. Juan Miguel BrownF 14(COMP METB)on 09-02-9970Mjrmgzh [Mass/Vol]3.6 g/dLNormal 3.4-5.0The [facility] Medical Centerment on above:Performed By: #### CBC #### [facility] [address] [place] [address] Dr. Juan Miguel MistryAlbumin/Globulin [Mass ratio]0.9 {ratio}NormalThe [facility] HospitalComment on above:Performed By: #### CBC #### [facility] [address] [place] [address] Dr. Juan Miguel Ken [Catalytic activity/Vol]82 U/FCcbjnz20-580Sqk [facility] Centerment on above:Performed By: #### CBC #### [facility] [address] [place] [address] Dr. Juan Miguel Dailey [Catalytic activity/Vol]22 U/SGtoxdk61-91Net [facility] HospitalComment on above:Performed By: #### CBC #### [facility] [address] [place] [address] Dr. Juan Miguel Gomez gap [Moles/Vol]12.7 mmol/LNormalThe [facility] Comment on above:Performed By: #### CBC #### [facility] [address] [place] [address] Dr. Juan Miguel Pinto [Catalytic activity/Vol]15 U/HBhinmr36-05Enp [facility] HospitalComment on above:Performed By: #### CBC #### [facility] [address] [place] [address] Dr. Yilan ChangBilirubin [Mass/Vol]1.1 mg/dLCritically high0.2-1.0The [facility] HospitalComment on above:Performed By: #### CBC #### [facility] [address] [address] [address] Juan Miguel MistryCalcium [Mass/Vol]9.0 mg/dLNormal8.5-10.1The [facility] Comment on above:Performed By: #### CBC #### [facility] [address] [address] [address] Juan Miguel MistryChloride [Moles/Vol]101 mmol/NSmnxhl36-181Sww [facility] Comment on above:Performed By: #### CBC #### [facility] [address] [place] [address] Dr. Juan Miguel MistryCO2 [Moles/Vol]28.1 mmol/CTbitfy72.0-32.0The [facility] Comment on above:Performed By: #### CBC #### [facility] [address] [place] [address] Dr. Juan Miguel MistryCreatinine [Mass/Vol]0.91 mg/dLNormal0.70-1.30The [facility] HospitalComment on above:Performed By: #### CBC #### [facility] [address] [place] [address] Dr. Juan Miguel RuizGFR-AF MALAGASY>60Normal>=60The [facility] HospitalComment on above:Performed By: #### CBC #### [facility] [address] [address] [address] Juan Miguel RuizGFR-NON AF MALAGASY>60Normal>=60The [facility] HospitalComment on above:Performed By: #### CBC #### [facility] [address] [place] [address] Dr. Juan Miguel MistryGlobulin (S) [Mass/Vol]3.9 g/dLNormalThe [facility] HospitalComment on above:Performed By: #### CBC #### [facility] [address] [place] [address] Dr. Juan Miguel MistryGlucose [Mass/Vol]133 mg/dLCritically xfow47-472Sfg [facility] HospitalComment on above:Performed By: #### CBC #### [facility] [address] [address] [address] Juan Miguel MistryPotassium [Moles/Vol]4.8 mmol/LNormal3.5-5.1The [facility] Comment on above:Performed By: #### CBC #### [facility] [address] [place] [address] Dr. Juan Miguel MistryProtein [Mass/Vol]7.5 g/dLNormal6.4-8.2The [facility] Comment on above:Performed By: #### CBC #### [facility] [address] [place] [address] Dr. Juan Miguel MistrySodium [Moles/Vol]137 mmol/GQpwtmy904-957Idu [facility] Comment on above:Performed By: #### CBC #### [facility] [address] [place] [address] Dr. Juan Miguel MistryUrea nitrogen [Mass/Vol]17.0 mg/dLNormal7.0-18.0The [facility] HospitalComment on above:Performed By: #### CBC #### [facility] [address] [place] [address] Dr. Juan Miguel Almanza nitrogen/Creatinine [Mass ratio]18.7 mg/mgNormalThe [facility] HospitalComment on above:Performed By: #### CBC #### [facility] [address] [place] [address] Dr. Juan Miguel MistryPROF 14(COMP METB)on 64-29-8964Fyubjxp [Mass/Vol]3.5 g/dLNormal 3.4-5.0The [facility] HospitalComment on above:Performed By: #### CMP #### [facility] [address] [place] [address] Dr. Juan Miguel MistryAlbumin/Globulin [Mass ratio]0.9 {ratio}NormalThe [facility] HospitalComment on above:Performed By: #### CMP #### [facility] [address] [place] [address] Dr. Juan Miguel Ken [Catalytic activity/Vol]75 U/GIhzspb10-372Rrl [facility] HospitalComment on above:Performed By: #### CMP #### [facility] [address] [address] [address] Juan Miguel KhannaT [Catalytic activity/Vol]25 U/YLhjfho57-10Wey [facility] HospitalComment on above:Performed By: #### CMP #### [facility] [address] [address] [address] Juan Miguel Gomez gap [Moles/Vol]7.6 mmol/LNormalThe [facility] HospitalComment on above:Performed By: #### CMP #### [facility] [address] [place] [address] Dr. Juan Miguel MistryAST [Catalytic activity/Vol]11 U/LCritically zyw44-84Uhg [facility] HospitalComment on above:Performed By: #### CMP #### [facility] [address] [place] [address] Dr. Juan Miguel MistryBilirubin [Mass/Vol]0.8 mg/dLNormal0.2-1.0[facility] Comment on above:Performed By: #### CMP #### [facility] [address] [place] [address] Dr. Juan Miguel MistryCalcium [Mass/Vol]8.7 mg/dLNormal8.5-10.1The [facility] Comment on above:Performed By: #### CMP #### [facility] [address] [place] [address] Dr. Juan Miguel MistryChloride [Moles/Vol]101 mmol/LMududc49-680Ate [facility] Comment on above:Performed By: #### CMP #### [facility] [address] [place] [address] Dr. Juan Miguel MistryCO2 [Moles/Vol]28.8 mmol/JDgwmvg51.0-32.0The [facility] Comment on above:Performed By: #### CMP #### [facility] [address] [place] [address] Dr. Juan Miguel MistryCreatinine [Mass/Vol]1.22 mg/dLNormal0.70-1.30The [facility] HospitalComment on above:Performed By: #### CMP #### [facility] [address] [place] [address] Dr. Juan Miguel RuizGFR-AF MALAGASY>60Normal>=60The [facility] HospitalComment on above:Performed By: #### CMP #### [facility] [address] [place] [address] Dr. Juan Miguel RuizGFR-NON AF PFXGKHBE09 mL/min/1.01v0Nglzdkxfpy low>=60The [facility] HospitalComment on above:Performed By: #### CMP #### [facility] [address] [place] [address] Dr. Juan Miguel MistryGlobulin (S) [Mass/Vol]3.8 g/dLNormalThe [facility] HospitalComment on above:Performed By: #### CMP #### [facility] [address] [place] [address] Dr. Juan Miguel MistryGlucose [Mass/Vol]146 mg/dLCritically ujds29-471Idu [facility] HospitalComment on above:Performed By: #### CMP #### [facility] [address] [place] [address] Dr. Juan Miguel MistryPotassium [Moles/Vol]4.4 mmol/LNormal3.5-5.1The [facility] Comment on above:Performed By: #### CMP #### [facility] [address] [place] [address] Dr. Juan Miguel MistryProtein [Mass/Vol]7.3 g/dLNormal6.4-8.2The [facility] Comment on above:Performed By: #### CMP #### [facility] [address] [place] [address] Dr. Juan Miguel MistrySodium [Moles/Vol]133 mmol/LCritically dnv903-589Ybu [facility] HospitalComment on above:Performed By: #### CMP #### [facility] [address] [place] [address] Dr. Juan Miguel MistryUrea nitrogen [Mass/Vol]17.0 mg/dLNormal7.0-18.0The [facility] HospitalComment on above:Performed By: #### CMP #### [facility] [address] [place] [address] Dr. Juan Miguel Almanza nitrogen/Creatinine [Mass ratio]13.9 mg/mgNormalThe [facility] HospitalComment on above:Performed By: #### CMP #### [facility] [address] [place] [address] Dr. Juan Miguel Davis B12 AND FOLATEon 85-05-2323Bqmuujugd (Vitamin B12) [Mass/Vol] 412.0 pg/uWTraszt538.0-986.0The [facility] Centerment on above:Performed By: #### B12FOL #### [facility] [address] [place] [address] Dr. Juan Miguel MistryFOLATE8.80 ng/mLNormal8.60-58.90The [facility] HospitalComment on above:Performed By: #### B12FOL #### [facility] [address] [place] [address] Dr. Juan Miguel Mcnally, FREE AND TOTAL RATIOon 12-09-2021% Free PSA28.3 %NormalThe [facility] on above:Result Comment: The table below lists the probability [...] PSA for any other population of men.Performed By: #### CBC #### [facility] [address] [place] [address] Dr. Juan Miguel MistryProstate specific Ag [Mass/Vol]3.0 ng/mLNormal0.0-4.0The [facility] HospitalComment on above:Result Comment: [employer] ECLIA methodology. . According to the [place] [employer], Serum PSA should decrease and [...] of the presence or absence of malignant disease.Performed By: #### CBC #### [facility] [address] [place] [address] Dr. Juan Miguel Mcnally, Free0.85 ng/mLNormalN/AThe [facility] St[facility] HospitalComment on above:Result Comment: [employer] ECLIA methodology.Performed By: #### CBC #### [facility] [address] [place] [address] Dr. Juan Miguel Gaytan AUTO DIFFon 33-66-4766EGBW #0.0 103/ulNormal0.0-0.1The [facility] HospitalComment on above:Performed By: #### CBC #### [facility] [address] [place] [address] Dr. Juan Miguel MistryBasophils/100 WBC (Bld)0.5 %Normal0.2-2.0[facility] Comment on above:Performed By: #### CBC #### [facility] [address] [place] [address] Dr. Juan Miguel Boyle #0.1 103/ulNormal0.0-0.7The [facility] HospitalComment on above: Performed By: #### CBC #### [facility] [address] [place] [address] Dr. Juan Miguel Ruizosinophils/100 WBC (Bld)1.2 %Normal0.9-7.0The [facility] Comment on above:Performed By: #### CBC #### [facility] [address] [place] [address] Dr. Juan Miguel Ruizrythrocyte distribution width (RBC) [Ratio]13.0 %Fztzip91.0-15.[address] [facility] HospitalComment on above:Performed By: #### CBC #### [facility] [address] [place] [address] Dr. Juan Miguel MistryHematocrit (Bld) [Volume fraction]42.9 %Wpblqo73.0-54.0The [facility] Centerment on above:Performed By: #### CBC #### [facility] [address] [place] [address] Dr. Juan Miguel MistryHemoglobin (Bld) [Mass/Vol]14.3 g/pWUhfjmz65.0-18.0The [facility] HospitalComment on above:Performed By: #### CBC #### [facility] [address] [place] [address] Dr. Juan Miguel MistryIG #0.03 10e3/ulNormal0.00-0.03The [facility] HospitalComment on above:Performed By: #### CBC #### [facility] [address] [place] [address] Dr. Juan Miguel MistryIG %0.4 %Normal0.0-0.5The [facility] HospitalComment on above: Performed By: #### CBC #### [facility] [address] [place] [address] Dr. Juan Miguel [place] #1.3 103/ulNormal1.2-3.8The [facility] HospitalComment on above:Performed By: #### CBC #### [facility] [address] [place] [address] Dr. Juan Miguel Crawleymphocytes/100 WBC (Bld)17.3 %Critically low20.5-60.0The [facility] HospitalComment on above:Performed By: #### CBC #### [facility] [address] [place] [address] Dr. Juan Miguel MistryMANUAL DIFF REQNONormalThe [facility] St[facility] HospitalComment on above: Performed By: #### CBC #### [facility] [address] [place] [address] Dr. Juan Miguel Muñiz (RBC) [Entitic mass]30.0 doZuezzw53.9-34.0The [facility] HospitalComment on above:Performed By: #### CBC #### [facility] [address] [address] [address] Juan Miguel BirminghamHC (RBC) [Mass/Vol]33.3 g/jTWncamg21.9-35.2The [facility] HospitalComment on above:Performed By: #### CBC #### [facility] [address] [address] [address] Juan Miguel BirminghamV (RBC) [Entitic vol]90.1 xSEeorus87.0-94.0The [facility] HospitalComment on above:Performed By: #### CBC #### [facility] [address] [place] [address] Dr. Juan Miguel Hua #0.7 103/ulNormal0.3-0.8The [facility] HospitalComment on above:Performed By: #### CBC #### [facility] [address] [place] [address] Dr. Juan Miguel Vossocytes/100 WBC (Bld)8.9 %Normal1.7-12.0The [facility] Comment on above:Performed By: #### CBC #### [facility] [address] [address] [address] Juan Miguel Payne #5.6 103/ulNormal1.4-6.5The [facility] HospitalComment on above:Performed By: #### CBC #### [facility] [address] [place] [address] Dr. Juan Miguel Garciautrophils/100 WBC (Bld)71.7 %Fsxhuk98.0-75.0The [facility] HospitalComment on above:Performed By: #### CBC #### [facility] [address] [address] [address] Juan Miguel Guillenlet mean volume (Bld) [Entitic vol]10.8 fLNormal9.5-13.5The [facility] HospitalComment on above:Performed By: #### CBC #### [facility] [address] [place] [address] Dr. Juan Miguel MistryPLT191 103/zbXfexsz945-243Aya [facility] Centerment on above: Performed By: #### CBC #### [facility] [address] [place] [address] Dr. Juan Miguel MistryRBC4.76 106/ulNormal4.70-6.10The [facility] HospitalComment on above:Performed By: #### CBC #### [facility] [address] [place] [address] Dr. Juan Miguel MistryWBC7.8 103/ulNormal4.0-11.0The [facility] on above: Performed By: #### CBC #### [facility] [address] [place] [address] Dr. Juan Miguel MistryCULTURE URINEon 47-30-6545TJMKIDM URINECulture Observations: LIGHT GROWTH OF MIXED SKIN ANAYELI. NO POTENTIAL PATHOGENS SEEN.NormalThe [facility] Medical Centerment on above:Performed By: #### URCX #### [facility] [address] [place] [address] Dr. Juan Miguel MistryFOLATEon 44-17-6927KIJDZT93.20 ng/mLNormal8.60-58.90The [facility] on above:Performed By: #### VITB12, FOL #### [facility] [address] [place] [address] Dr. Juan Miguel MistryGLYCOHEMOGLOBIN A1Con 15-16-3492PIU RECOMMENDATIONSEE BELOWNormal The [facility] HospitalCommymichigan medical center gladwin on above:Result Comment: ADA RECOMMENDED LIMIT 4.0 - 6.0 ADA THERAPEUTIC TARGET < 7.0 ACTION SUGGESTED > 7.0Performed By: #### CBC #### [facility] [address] [place] [address] Dr. Juan Miguel MistryGlucose [Mass/Vol]131 mg/dLNormalThe [facility] on above:Performed By: #### CBC #### [facility] [address] [place] [address] Dr. Juan Miguel MistryHbA1c (Bld) [Mass fraction]6.2 %Normal4.5-6.2The [facility] on above:Performed By: #### CBC #### [facility] [address] [address] [address] Juan Miguel BurlesonID PROFILEon 27-00-2546LPEU-HDL RATIO NORMSKettering Health TroyComment on above:Result Comment: 3.3 - 4.4 LOW RISK 4.4 - 7.1 AVERAGE RISK 7.1 - 11.0 MODERATE RISK >11.0 HIGH RISKPerformed By: #### CMP, LIPID, TSH #### [facility] [address] [address] [address] Juan Miguel MistryCholesterol [Mass/Vol]177 mg/dLNormal<=200[facility] Comment on above:Performed By: #### CMP, LIPID, TSH #### [facility] [address] [place] [address] Dr. Juan Miguel MistryCholesterol in HDL [Mass/Vol]61 mg/dLCritically muvt54-48UhrOhiohealth Mansfield HospitalComment on above:Performed By: #### CMP, LIPID, TSH #### [facility] [address] [place] [address] Dr. Juan Miguel MistryCholesterol in LDL [Mass/Vol]100.2 mg/dLProMedica Fostoria Community HospitalComment on above:Performed By: #### CMP, LIPID, TSH #### [facility] [address] [place] [address] Dr. Juan Miguel Landryestercolleen.total/Cholesterol in HDL [Mass ratio]2.9 {ratio} NormalOhiohealth Mansfield HospitalComment on above:Performed By: #### CMP, LIPID, TSH #### [facility] [address] [place] [address] Dr. Juan Miguel MistryHDL NORMAL> or = 60 mg/dl - LOW CARDIOVASCULAR RISK <40 mg/dl - HIGH CARDIOVASCULAR RISKProMedica Fostoria Community HospitalComment on above:Performed By: #### CMP, LIPID, TSH #### [facility] [address] [place] [address] Dr. Juan Miguel MistryLDL CALC NORMALSEE [facility]ana HospitalComment on above:Result Comment: <100 mg/dl OPTIMAL 100 - 129 mg/dl NEAR OR ABOVE OPTIMAL 130 - 159 mg/dl BORDERLINE HIGH 160 - 189 mg/dl HIGH >190 mg/dl VERY HIGH Performed By: #### CMP, LIPID, TSH #### [facility] [address] [place] [address] Dr. Juan Miguel MistryTriglyceride [Mass/Vol]79 mg/dLNormal<=150The [facility] Comment on above:Performed By: #### CMP, LIPID, TSH #### [facility] [address] [place] [address] Dr. Juan Miguel MistryVLDL CALC15.8 mg/dLNormalThe [facility] St[facility] HospitalComment on above: Performed By: #### CMP, LIPID, TSH #### [facility] [address] [place] [address] Dr. Juan Miguel Perez 14(COMP METB)on 31-22-1035Upqlxzc [Mass/Vol]3.6 g/dLNormal 3.4-5.0The [facility] HospitalComment on above:Performed By: #### CMP, LIPID, TSH #### [facility] [address] [place] [address] Dr. Juan Miguel MistryAlbumin/Globulin [Mass ratio]0.9 {ratio}NormalThe [facility] St[facility] HospitalComment on above:Performed By: #### CMP, LIPID, TSH #### [facility] [address] [place] [address] Dr. Juan Miguel Ken [Catalytic activity/Vol]85 U/TRdsujn06-141Rws [facility] HospitalComment on above:Performed By: #### CMP, LIPID, TSH #### [facility] [address] [place] [address] Dr. Juan Miguel Dailey [Catalytic activity/Vol]25 U/BUepexv32-76Sio [facility] HospitalComment on above:Performed By: #### CMP, LIPID, TSH #### [facility] [address] [place] [address] Dr. Juan Miguel Gomez gap [Moles/Vol]12.4 mmol/LNormalThe [facility] Comment on above:Performed By: #### CMP, LIPID, TSH #### [facility] [address] [address] [address] Juan Miguel MistryAST [Catalytic activity/Vol]10 U/LCritically rvf55-68Iqc [facility] HospitalComment on above:Performed By: #### CMP, LIPID, TSH #### [facility] [address] [place] [address] Dr. Juan Miguel MistryBilirubin [Mass/Vol]0.7 mg/dLNormal0.2-1.0The [facility] Comment on above:Performed By: #### CMP, LIPID, TSH #### [facility] [address] [place] [address] Dr. Juan Miguel MistryCalcium [Mass/Vol]8.7 mg/dLNormal8.5-10.1The [facility] Comment on above:Performed By: #### CMP, LIPID, TSH #### [facility] [address] [place] [address] Dr. Juan Miguel MistryChloride [Moles/Vol]100 mmol/FWfglny92-857Pcm [facility] Comment on above:Performed By: #### CMP, LIPID, TSH #### [facility] [address] [place] [address] Dr. Juan Miguel MistryCO2 [Moles/Vol]27.9 mmol/VOupwop95.0-32.0The [facility] Comment on above:Performed By: #### CMP, LIPID, TSH #### [facility] [address] [place] [address] Dr. Juan Miguel MistryCreatinine [Mass/Vol]0.99 mg/dLNormal0.70-1.30The [facility] HospitalComment on above:Performed By: #### CMP, LIPID, TSH #### [facility] [address] [place] [address] Dr. Juan Miguel RuizGFR-AF MALAGASY>60Normal>=60The [facility] HospitalComment on above:Performed By: #### CMP, LIPID, TSH #### [facility] [address] [place] [address] Dr. Juan Miguel RuizGFR-NON AF MALAGASY>60Normal>=60The [facility] HospitalComment on above:Performed By: #### CMP, LIPID, TSH #### [facility] [address] [place] [address] Dr. Juan Miguel MistryGlobulin (S) [Mass/Vol]3.9 g/dLNormCleveland Clinic Medina HospitalComment on above:Performed By: #### CMP, LIPID, TSH #### [facility] [address] [place] [address] Dr. Juan Miguel MistryGlucose [Mass/Vol]138 mg/dLCritically nasx58-525Nnw [facility] HospitalComment on above:Performed By: #### CMP, LIPID, TSH #### [facility] [address] [place] [address] Dr. Juan Miguel MistryPotassium [Moles/Vol]4.3 mmol/LNormal3.5-5.1The [facility] Comment on above:Performed By: #### CMP, LIPID, TSH #### [facility] [address] [place] [address] Dr. Juan Miguel MistryProtein [Mass/Vol]7.5 g/dLNormal6.4-8.2The [facility] Comment on above:Performed By: #### CMP, LIPID, TSH #### [facility] [address] [place] [address] Dr. Juan Miguel Rodriguezdium [Moles/Vol]136 mmol/YVokdyd608-914Pgk [facility] Comment on above:Performed By: #### CMP, LIPID, TSH #### [facility] [address] [place] [address] Dr. Juan Miguel MistryUrea nitrogen [Mass/Vol]17.0 mg/dLNormal7.0-18.0The [facility] HospitalComment on above:Performed By: #### CMP, LIPID, TSH #### [facility] [address] [place] [address] Dr. Juan Miguel MistryUrea nitrogen/Creatinine [Mass ratio]17.2 mg/mgNoEast Ohio Regional HospitalComment on above:Performed By: #### CMP, LIPID, TSH #### [facility] [address] [place] [address] Dr. Juan Miguel Atkins 22-21-3571REQ9.682 uIU/mLNormal0.358-3.740Ohiohealth Mansfield HospitalComment on above:Performed By: #### CMP, LIPID, TSH #### [facility] [address] [address] [address] Juan iMguel MENDOZAon 42-62-9126Vwalbsgqm Ql (U)NegativeNormalNEGATIVEOhiohealth Mansfield HospitalComment on above:Performed By: #### UA #### [facility] [address] [address] [address] Juan Miguel MistryClarity (U)CLEARNormalCLEAROhiohealth Mansfield HospitalComment on above: Performed By: #### UA #### [facility] [address] [address] [address] Juan Miguel Gilliland (U)LT. YELLOWNormalYELLOWOhiohealth Mansfield HospitalComment on above:Performed By: #### UA #### [facility] [address] [address] [address] Juan Miguel MistryGlucose Ql (U)NegativeNormalNEGATIVEOhiohealth Mansfield HospitalComment on above:Performed By: #### UA #### [facility] [address] [address] [address] Juan Miguel MistryHemoglobin Ql (U)NegativeNormalNEGMercy Health Urbana Hospital on above:Performed By: #### UA #### [facility] [address] [address] [address] Juan Miguel MistryKetones Ql (U)NegativeNormalNEGATIVEOhiohealth Mansfield HospitalComment on above:Performed By: #### UA #### [facility] [address] [address] [address] Juan Miguel MistryLEUKOCYTESSMALLAbnormalNEGSt. Francis HospitalComment on above:Performed By: #### UA #### [facility] [address] [address] [address] Juan Miguel MistryNitrite Ql (U)NegativeNormalNEGATIVEOhiohealth Mansfield HospitalComment on above:Performed By: #### UA #### [facility] [address] [address] [address] Juan Miguel MistrypH (U)6.0 [pH]Normal5-9The [facility] HospitalComment on above: Performed By: #### UA #### [facility] [address] [place] [address] Dr. Juan Miguel MistrySPEC GRAVITY1.890Pempmi5.005-<=1.025The [facility] HospitalComment on above:Performed By: #### UA #### [facility] [address] [address] [address] Juan Miguel MistryUA PROTEINNegativeNormalNEGATIVE/ TRACEThe [facility] Comment on above:Performed By: #### UA #### [facility] [address] [place] [address] Dr. Juan Miguel MistryUrobilinogen Qn (U)1.0 {Domingo'U}/dLNormal0.2 - 1.0The [facility] HospitalComment on above:Performed By: #### UA #### [facility] [address] [place] [address] Dr. Juan Miguel MistryVITAMIN B12on 41-54-5399Nzmcsnonp (Vitamin B12) [Mass/Vol]407.0 pg/pXLaokvy761.0-986.0The [facility] HospitalComment on above:Performed By: #### VITB12, FOL #### [facility] [address] [place] [address] Dr. Juan Miguel Mistry Vital Signs Date TimeVital SignValuePerforming HppjkteksLaszrenj22-48-5879 10:58-0400Body ydshkk499 cmDasherin Gacrí[facility] DO Work Phone: [facility]09-02-2025 10:58-0400 Body mass index (BMI) [Ratio]49.9 kg/v1Jfzhzsherin Colon DO Work Phone: [phone]09-02-2025 10:58-0400 Body kdubvhlxrjx76.1 [degF]Celso Colon DO Work Phone: [facility]09-02-2025 10:58-0400 Body hohwfh835.25 kgDasherin Colon DO Work Phone: [facility]09-02-2025 10:58-0400 Diastolic blood rzfqxxiq66 mm[Hg]Celso Colon DO Work Phone: [facility]09-02-2025 10:58-0400 Heart rate71 /minDradha Colon DO Work Phone: [facility]09-02-2025 10:58-0400 SaO2% (BldA) [Mass fraction]97 %Celso Colon DO Work Phone: [facility]09-02-2025 10:58-0400 Systolic blood mdeicvmo080 mm[Hg]Celso Colon DO Work Phone: [facility]06-11-2025 10:09-0400 Diastolic blood vvuviybj36 mm[Hg][facility]06-11-2025 10:09-0400Systolic blood ruztpsrl269 mm[Hg][facility] 09-26-2024 09:48-0400Body aletwx667 [facility] 09-26-2024 09:48-0400Body mass index (BMI) [Ratio]49.1 kg/g8PiuoqfflmKn[facility] Community Hospital06-11-2025 09:48-0400Body vcjnrjiwjfl54.4 [degF][facility]06-11-2025 09:48-0400Body beznod697.98 kgKn[facility] Hospital06-11-2025 09:48-0400Heart rate62 /[facility]06-11-2025 09:48-0400Respiratory rate20 /[facility]06-11-2025 09:48-0911WwN4% (BldA) [Mass fraction]96 %[facility]08-28-2024 08:24-0400Body bkycfr941 cmKn[facility] Hospital08-28-2024 08:24-0400Body mass index (BMI) [Ratio]48.6 kg/u3JcaowhkwwKn[facility] Hospital08-28-2024 08:24-0400Body sijrtzqabbl03.7 [degF][facility]08-28-2024 08:24-0400Body jymoyn888.62 kgKn[facility] Hospital08-28-2024 08:24-0400Diastolic blood jdyjkwpe58 mm[Hg] [facility]08-28-2024 08:24-0400Heart rate66 /minKnox Community Hospital08-28-2024 08:24-5694NgH4% (BldA) [Mass fraction]98 % [facility]08-28-2024 08:24-0400Systolic blood tqpbioym062 mm[Hg][facility]10-02-2023 09:50-0400Body cm Celso Colon Other [facility] Other 10-02-2023 09:50-0400Body mass index (BMI) [Ratio]48.3 kg/l4NrjguCelso Colon Other [facility] Other 10-02-2023 09:50-0400Body ctreuforggb94.1 [degF]Celso Colon Other [facility] Other 10-02-2023 09:50-0400Body .72 kgCelso Colon Other [facility] Other 10-02-2023 09:50-0400Diastolic blood fkqujcho90 mm[Hg] Celso Colon Other [facility] Other 10-02-2023 09:50-0400Respiratory rate18 /Sapna Colon Other [facility] Other 10-02-2023 09:50-0225WkL5% (BldA) [Mass fraction]97 % Celso Colon Other [facility] Other 10-02-2023 09:50-0400Systolic blood ftkjmwul559 mm[Hg] Celso Colon Other [facility] Other 1-810312-53613226-57-9195 08:10-0400Body cmDasherin Colon Other [facility] Other 694182-29-6401 08:10-0400Body mass index (BMI) [Ratio]48.3 kg/q9Gubossherin Colon Other [facility] Other 893802-33-7175 08:10-0400Body txgfkaydklr42.4 [degF]Celso Colon Other [facility] Other 2-888459-11180131-68-4297 08:10-0400Body ifkcix027.72 kgDasherin Colon Other [facility] Other 4-099283-46335300-21-9539 08:10-0400Diastolic blood fguiwxvx484 mm[Hg]Celso Colon Other [facility] Other 0-264584-88793304-51-3959 08:10-0400Respiratory rate18 /minDradha Colon Other [facility] Other 424422-77-2749 08:10-1433XfB5% (BldA) [Mass fraction]97 % Celso Colon Other [facility] Other 08-30-2023 08:10-0400Systolic blood ekvfcnoc125 mm[Hg] Celso Colon Other [facility] Other 02-27-2023 14:00-0500Body avigcn314 cmDasherin Colon Other [facility] Other 02-27-2023 14:00-0500Body mass index (BMI) [Ratio] 49.44 kg/o2JxcvjCelso Colon Other [facility] Other 02-27-2023 14:00-0500Body uyxkrvqyafh96.4 [degF]Celso Colon Other [facility] Other 02-27-2023 14:00-0500Body .89 kgDasherin Colon Other [facility] Other 02-27-2023 14:00-0500Diastolic blood kedgsxee37 mm[Hg] Celso Colon Other [facility] Other 02-27-2023 14:00-0500Respiratory rate18 /Sapna Colon Other [facility] Other 02-27-2023 14:00-4569AmE9% (BldA) [Mass fraction]95 % Celso Colon Other [facility] Other 02-27-2023 14:00-0500Systolic blood bttcgvih198 mm[Hg] Celso Colon Other [facility] Other Encounters Encounter DateEncounter TypeCare ProviderFacilityStart: 12-18-2024 End: 67-41-1804yhhopzibuxSmfjt Girvin DO Work Phone: [facility] Work Phone: Start: 12-18-2024 End: 26-43-8776Pbryowf encounter procedureDasherin Colon DO-[facility] Work Phone: Start: 12-15-2024 End: 21-55-4956ifeyjwcysgAlray Girvin DO Work Phone: [facility] Work Phone: Start: 12-15-2024 End: 35-25-8547Vhwdqriy ReferredDasherin Colon DO-[facility] Start: 16-57-9879Ivz-patient / Non-visitDasherin Colon DO-[facility] Work Phone: Start: 09-26-2024 End: 26-73-4963rlxxvlhmtpCfhwmnuzwMartin Memorial Hospital Work Phone: Start: 09-26-2024 End: 34-05-8956Lfebglq encounter procedureSw[facility] Work Phone: Start: 12-14-2023 End: 79-88-2465pnfzctncorPczzkeroqMartin Memorial Hospital Work Phone: Start: 12-14-2023 End: 57-14-3503Kwhubaz encounter procedureSwain [facility] [place] Work Phone: Start: 68-27-7599Urz-patient / Non-visitFirschaumburgs [facility]ician [facility] Work Phone: Start: 61-10-1642Dqj-patient / Non-visitFirschaumburgs [facility]ician [facility] [place] Work Phone: Start: 01-17-2023 End: 53-27-0501eokklnadkrTdtrk Girvin Other [employer] Other Start: 22-19-5342Nmbvry outpatient visit 15 minutes Celso [facility] [place]Start: 01-03-2023 End: 53-27-5295dqultwtfumRtmxg Girvin Other [employer] Other Start: 48-96-4833Yilrwyjau encounterDasherin [facility] [place]ueStart: 12-15-2022 End: 63-64-4447sayfkhqzwrApnnw Girvin Other [employer] Other Start: 29-08-4348Ekifsi outpatient visit 25 minutes Celso [facility] [place]Start: 09-20-2022 End: 01-41-3960xkypkneltwDmpxl Girvin Other [employer] Other Start: 50-88-4712Fofvewmfk encounterDaviamber [facility] [place]vueStart: 08-20-2022 End: 02-33-9038acgblwlltbResor Girvin Other [facility] [employer] Other Start: 83-52-1566Ureawlfea encounterDaviamber [facility] BellevueStart: 13-89-0554Fbdtttptj encounterDaviamber [facility] [place]vueStart: 07-22-2022 End: 20-72-6913wbregmsbcpAS CELSO [facility] [employer] Other Start: 07-14-2022 End: 56-66-9543uhpxufzpxlWqctt Girvin Other [employer] Other Start: 25-64-9572Fictmgtzk encounterDaviamber [facility] [place]vueStart: 06-21-2022 End: 04-47-9353rvdtujnmcfDU DAVID GIRVINFacility:Q9Vgkwj: 06-14-2022 End: 93-56-5699gvzoddsgutSaoyn Girvin Other [employer] Other Start: 39-45-4578Oenvme outpatient visit 15 minutes Celso [facility] [place]Start: 99-17-6623Gtukimcyb encounter Celso [facility] [place]vueStart: 01-22-2022 End: 19-68-7799mtzbseenkwLG CELSO COLONFacility:W6Jhwsh: 12-08-2021 End: 03-22-9250qkqciijcwkPC CELSO COLONFacility:H1 Procedures DateProcedureProcedure DetailPerforming ClinicianStart: 24-73-0300Jgsst kristine Colon DO Work Phone: Plan of Treatment DateCare ActivityDetailAuthorStart: 19-49-9147Qmupeyth identified in Urine by CultureSalem Regional Medical Centertart: 30-76-6766Mlzfp [facility] HospitalBacteria identified in Urine by Culture [facility] HospitalComprehenatrium health kings [facility] metabolic 1999 panel - Serum or PlasmaKnox Community HospitalCompremesilla valley hospital metabolic 1999 panel - Serum or [facility] SystemUrine [facility] Immunizations Immunization DateImmunizationNotesCare VfadjwcuVjbqzdea98-82-8541vqfvvhzpe virus vaccine, unspecified formulationKn[facility] Hospital11-01-2017 influenza, high dose seasonal, preservative-freeDavid Girvin Other [facility] Other 094610-56-9715rarnzjbim virus vaccine, unspecified formulationKnox Community Hospital09-28-2016influenza, high dose seasonal, preservative-freeDavid Girvin Other [employer] Other Payers DatePayer CategoryPayerPolicy [id number]-[id number] Social History DateTypeDetailFacilityUnknown if ever smokedGuaynabo Momo Other Sex Assigned At BirthSex Assigned At [facility]olia HealthGuaynabo [facility] Other Start: 12-14-2023 End: 55-64-1380Bzgogjz smoking status NHISNever smoked tobacco (finding) [facility] Hospitaltart: 50-72-9040Zfb Assigned At [facility] Hospitaltart: 02-77-3689PmaRoeq (finding)[facility] Clinical Notes 10-08-2008 to 09-26-2024 Note Date & NzewNpdyJeuqyezv43-60-5949 Evaluation note* Diagnosis Onset Date Resolution Status Admit Date Acute lower respiratory infection acuteJune 2024 9:29am [facility] Work Phone: [phone]) 153-150906-11-2025 Evaluation note* Diagnosis Onset Date Resolution Status Admit Date Acute lower respiratory infection acuteJune 2024 9:29amAnemiaacuteSeptember 2024 10:45amBody mass index [BMI] 45.0-49.9, adultacuteSeptember 2024 10:45amElevated PSAacute December 18, 2024 10:45amEssential (primary) hypertensionacuteSept2024 10:45amGastro-esophageal reflux disease without esophagitisacuteSept2024 10:45amHyperlipidemiaacuteSeptember 2024 10:45amLoss of taste acuteSept2024 10:45amOther assisted (current) drug therapyacute December 18, 2024 10:45amShoulder pain, bilateralacuteSept2024 10:45amType 2 diabetes mellitus without complicationsacuteSept2024 10:45amWeight gainacuteSept2024 10:45am [facility] Work Phone: 1(603) 778-846210-02-2023 Evaluation note* Encounter Date Diagnosis Assessment Notes Treatment Notes Treatment Clinical Notes Jan, Essential (primary) hypertension (ICD-10 - I10) At this time his blood pressure is not as controlled as we would like to see. I would like to increase his Losartan to 50 MG a day. He can take 2 of the 25 MG tablets together a day until he runs lowand then can take 50 MG daily. He is to continue with the Metoprolol and Norvasc (1/2 tablet daily). I did provide him with a refill on Losartan today. Jan,Other abnormal blood chemistry (ICD-10 - R79.89)His BUN is 21. Creatinine is 1.16. EGFR is >60. Encouraged him to increase his intake of water daily. Jan,Edema (ICD-10 - R60.9)He is not taking Klor Con due to being on Losartan. He does continue with the Furosemide. He voicesthat his leg swelling is doing very well right now. Jan,Hyperglycemia (ICD-10 - R73.9)His blood sugar was 142 when checked. He voices that since last seen he did cut out the candy bar and is not eating these every day. I did recommend that he continue to avoid the candy bars. Watch intake of carbs and sugars. Stay active. [facility] Other 08-30-2023 Evaluation note* Encounter Date Diagnosis [...] back in one month to re-evaluate BP. Nov,Hyperglycemia (ICD-10 - R73.9)The Metformin caused him to have itching, he did stop the medication and restarted it and then had to stop it again. His glucose is 138. HgA1C is 6.3 up from 6.2. I would like to see his A1C at 5.5 or below. He voices that his itching seemed to come from his lower legs and the edema that he had. Heis willing to restart the Metformin and see [...] he can go up to every day. Nov,Hyperlipidemia (ICD-10 - E78.5)Discussed cholesterol results with patient today. Total is 186. HDL is 59. LDL is 109.2. Triglycerides are 89. VLDL is 17.8. I did recommend that he continue to monitor his intake of carbs and sugars. Stay active. Nov,remature beat (ICD-10 - I49.49)An EKG was done in the office today which showed sinus rhythm with frequent PACs. I did review thiswith him today. All questions he has were answered. He has not had any caffeine yet today. This is not concerning. Reassurance given. Nov,Vitamin B12 deficiency (ICD-10 - E53.8)He has not been taking B12 and I did recommend that he re-start this medication. His Vitamin B12 level is 289. Folate is 11.80. Nov,Edema (ICD-10 - R60.9)The Furosemide is working very well for his edema. He is taking the Klor Con every other day instead of when he takes the Furosemide. His potassium level is 4.2. Importance of potassium is discussed.I am going to add a new BP medication that will hold his potassium so for now he should not take the Klor Con. Nov,astro-esophageal reflux disease without esophagitis (ICD-10 - K21.9)He is provided with a refill on above medication today. Nov,Other abnormal blood chemistry (ICD-10 - R79.89)Discussed his kidney studies today. BUN is 16. Creatinine is 1.08. EGFR is >60. He is to continue to stay well hydrated with plenty of water daily. Nov,Stasis dermatitis of both legs (ICD-10 - I87.2)Noted on exam. Nov,Weight loss (ICD-10 - R63.4)He has lost 7 pounds since last seen. His TSH is normal at 1.357. Nov,Other assisted (current) drug therapy (ICD-10 - Z79.899) Nov,Nocturia (ICD-10 - R35.1) Nov,Elevated PSA (ICD-10 - R97.20)His total PSA is 1.2. Free PSA is 0.29. % Free PSA is down from 28.3 to 24.2. No sign of prostate cancer at this time. Will continue to monitor. [facility] Other 04-06-2023 Evaluation note* Encounter Date Diagnosis Assessment Notes Treatment Notes Treatment Clinical Notes Jul, Other regional planner (current) drug t herapy (ICD-10 - Z79.899) [facility] Other 02-27-2023 Evaluation note* Encounter Date Diagnosis Assessment Notes Treatment Notes Treatment Clinical Notes May, Essential (primary) hypertension (ICD-10 - I10) [facility] Other 02-27-2023 Evaluation note* Encounter Date Diagnosis [...] his potassium and kidney levels. He is instructedto take the Potassium with the Lasix, he [...] once he has rid the excess fluid. May,Stasis dermatitis of both legs (ICD-10 - I87.2) May,Essential (primary) hypertension (ICD-10 - I10)In the past he was on a diuretic [...] him on Cardizem CD 180 MG daily. May,Rash and nonspecific skin eruption (ICD-10 - R21)He has a rash on his upper extremities, and we discussed that the swelling could be irritating his nerves. He has very dry skin, he voices that he puts Vaseline intensive care lotion on his skin for a while and then stops. I asked him to apply this daily to help keep his skin moisturized. The itching should improve. May,Weight gain (ICD-10 - R63.5)He has gained seven pounds since last seen. May,Hyperglycemia (ICD-10 - R73.9)He voices that he had stopped the Metformin because he had itching with it, he stopped the medication for a short time and then did restart it but one week ago he stopped the medication again. [facility] Other 02-27-2023 Evaluation note* Encounter Date Diagnosis Assessment Notes Treatment Notes Treatment Clinical Notes May, Essential (primary) hypertension (ICD-10 - I10) May,Edema (ICD-10 - R60.9) May,astro-esophageal reflux disease without esophagitis (ICD-10 - K21.9) May,Vitamin B12 deficiency (ICD-10 - E53.8) [facility] Other 06-23-2009 History general Narrative - Reported* Type Description Date Medical History 2008 psa level, 0.377 Medical Xloofeg0609 ekg doneMedical Historyno colonoscopyMedical Historyno stress testMedical Historyno ct scanMedical Historystools for occult blood negative x3 October 08, 2008Medical Historyrefuses colonoscopy and seracult cards x3 39-72-54Jaxyrbp Historyrefuses stress test 46-84-23Yiwhgcr Historyblood work 04/15/11Medical Historyrefuses colonoscopy, stress test, EGD 2-3-30Nizffpq HistoryTetanus Injection [facility] (cut left wrist with a saw blade)Medical HistoryEKG, CXR [facility] HistoryRefuses Colonoscopy & Rectal Exam 0-7-06Peazhot HistoryFOBT Negative 08/03/14Medical HistoryRefuses Colonoscopy 5-9-87Xbynfka HistoryHYPERTENSIONSurgical History scope right and left knee; Dr. MorrisonRdfwfhv89-1896Ryhhrgql Historyknee replacement partial b/l2013 I-DISPO Other 06-23-2009 History general Narrative - Reported* Type Description Date Medical History 2008 psa level, 0.377 Medical Rretbuz5738 ekg doneMedical Historyno colonoscopyMedical Historyno stress testMedical Historyno ct scanMedical Historystools for occult blood negative x3 October 08, 2008Medical Historyrefuses colonoscopy and seracult cards x3 27-82-81Obbzkur Historyrefuses stress test 64-34-55Xsxsckl Historyrefuses colonoscopy, stress test, EGD 3-9-62Gnbnvme HistoryTetanus Injection [facility] 09-26-12 (cut left wrist with a saw blade)Medical HistoryEKG, CXR 2012 [facility] HistoryRefuses Colonoscopy & Rectal Exam 09-21-13 Medical HistoryFOBT Negative 08/03/14Medical HistoryRefuses Colonoscopy 11-19-14 Medical HistoryHYPERTENSIONSurgical Historyscope right and left knee; Dr. MorrisonZytolff51-7368Ublurwjt Historyknee replacement partial b/l2013 [facility] Other Evaluation noteNo InformationNortGuthrie [facility] Other Evaluation note* Diagnosis Onset Date Resolution Status Anemia acuteElevated PSAacuteEssential (primary) hypertensionacuteGastro-esophageal reflux disease without esophagitisacuteHyperlipidemiaacuteLoss of tasteacuteType 2 diabetes mellitus without complicationsacute [facility] Work Phone: Evaluation noteNo assessment information available [facility] Work Phone: Reason for referral (narrative)No reason for referral information [facility] Work Phone: Summary Purpose Family History Relationship Condition Age at Onset Recorded Date/T nuvia father Unknown grandparentDeceasedUnknownmotherHeart diseaseUnknownDeceasedUnknown Advance Directives Advance Directive Response Recorded Date/ Time Advance Directives No May 26, 2023 12:58pm Chief Complaint and Reason for Visit Chief Complaint Amb Documentation review labsReason for VisitAnemia Elevated PSA Essential (primary) hypertension Gastro-esophageal reflux disease without esophagitis Hyperlipidemia Loss of taste Type 2 diabetes mellitus without complications Chief Complaint Admit Date Cough, congestion September 26, 2024 9:29 am Chief Complaint Admit Date Cough, congestion September 26, 2024 9:29 am Unknown December 15, 2024 10 :44am Reason for Visit Admit Date Acute lower respiratory infection September 162024 9:29am Chief Complaint Admit Date Cough, congestion September 26, 2024 9:29 am Unknown December 15, 2024 10 :44am review labs December 18, 2024 10:45am Reason for Visit Admit Date Acute lower respiratory infection September 162024 9:29am Anemia December 18, 2024 10:45am Body mass index [BMI] 45.0-49.9, adult S tember 2024 10:45am Elevated PSA December 18, 2024 10:45am Essential (primary) hypertension Septemb er 2024 10:45am Gastro-esophageal reflux disease without esophagitis December 18, 2024 10:45am Hyperlipidemia December 18, 2024 10:45am Loss of taste December 18, 2024 10:45am 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 [facility] 2024 10:45am Shoulder pain, bilateral December 18, 2024 10:45am Type 2 diabetes mellitus without complic ations December 18, 2024 10:45am Weight gain December 18, 2024 10:45am Additional Source Comments REASON FOR VISIT (unrecogniz ed section and content) Clinicalb/l leg swelling/flu id drainageClinicalrefillsClinicalRefillsClinical Acute Medicinereview labClinical1 mo recheck BP (unrecognized sect ion and content) No Status Records FoundNo Status Records Found INFORMATION SOURCE (unrecogn ized section and content) DATE CREATED AUTHOR 07/31/[address] [facility] DATE CREATED AUTHOR AUTHOR'S ORGANIZ ATION 12/17/2024 [facility] Care Teams (unrecognized sec tion and content) Team Status: Active Member Role Status Dates Celso Colon DO Primary Care Provider Active Team Status: Inactive Member Role Status Dates Celso Colon DO Primary Care Provider Active S tart: September 26, 2024 End: September 26, 2024Patti Rodgers ProviderActiveStart: September 26, 2024 End: September 26, 2024 Team Status: Active Member Role Status Dates Cody Garzon MD Primary Care Provider Active Start: October 31, 2023 Francisco Cruz ProviderActiveStart: October 31, 2023 Team Status: Active Member Role Status Dates Celso Colon DO Primary Care Provide r, Attending Provider Active Start: December 12, 2023 Team Status: Inactive Member Role Status Dates Celso Colon DO Primary Care Provide r, Attending Provider Active Start: December 14, 2023 End: December 14, 2023 Team Status: Active Member Role Status Dates Celso Colon DO Primary Care Provider Active S tart: December 15, 2024 Celso Colon DOFelizvanita ProviderActiveStart: December 15, 2024 Team Status: Inactive Member Role Status Dates Celso Colon DO Attending Provider Active Star t: December 15, 2024 End: December 15, 2024 Team Status: Inactive Member Role Status Dates Celso Colon DO Primary Care Provider Active S tart: December 18, 2024 End: December 18, 2024Dakhoiamber Colon DOFelizvanita ProviderActiveStart: December 18, 2024 End: December 18, 2024 Goals (unrecognized section and content) Goals [...] BE BASED ON THE PRIMARY CLINICAL RECORDS. [employer] provides no warranty or guarantee of the accuracy or completeness of information in this document.
--- OUTSIDE RECORDS SUMMARY | 2025-04-15 06:46 | XMS_ITS | Clinical Summary ---
Author Organization [facility] Address [address] [place] [address] Care Team Providers Care Manager Administrative Name Role Phone Constantino Lomax DO Primary Care Provider [phone] Allergies No known active allergies Medications MedicationSigDispense QuantityRefillsLast FilledStart DateEnd DateStatus bisoprolol-hydrochlorothiazide (ZIAC) 10-6.25 mg per tablet Take 1 tablet by mouth once daily.ctive Omeprazole Magnesium (PRILOSEC OTC) 20 mg tablet Take 1 tablet by mouth once daily.ctive amLODIPine 5 mg tablet Take 2 tablets by mouth once daily.ctive Active Problems ProblemNoted DateDiagnosed KpzbJbtcgitsprqwp97/09/2015OA (osteoarthritis) of knee03/29/2013Knee pain03/29/2013Unspecified essential budckvighadx31/12/2013 GERD (gastroesophageal reflux disease)03/29/2013Habitual alcohol use03/29/2013 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), without mention of mzpebrhysxal54/06/2008 Family History Medical HistoryRelationCommentsCOPDFatherDECEASEDCoronary Artery DiseaseMother DiabetesMotherHypertensionMotherRelationStatusCommentsFatherMother Social History Tobacco UseTypesPacks/DayYears UsedDateSmoking Tobacco: NeverSmokeless Tobacco: NeverAlcohol UseStandard Drinks/WeekCommentsYes0 (1 standard drink = 0.6 oz pure alcohol)Everyday drinker, beer-- 6/DAY.Sex and Gender InformationValueDate RecordedSex Assigned at BirthNot on fileLegal PyiKtmw29/02/2012 8:12 AM EST Gender IdentityNot on fileSexual OrientationNot on fileOccupationIndustryJob Start DateJob End DateRETIREDNot on fileNot on fileNot on file Last Filed Vital Signs Vital SignReadingTime TakenCommentsBlood Detvhqyf571/7405/29/2013 6:15 AM EST Lesxs535505/29/2013 6:15 AM ICLAoyxebaiwsp02.9 ??C (98.5 ??F)05/29/2013 6:15 AM ESTRespiratory Fydb906505/29/2013 6:15 AM ESTOxygen Qlhpzkxicv65%05/29/2013 6:15 AM ESTInhaled Oxygen Concentration--Erdiyj646.3 kg (230 lb)05/28/2013 9:07 AM OOUCkhpnf842.2 cm (5' 7 )05/28/2013 9:07 AM ESTBody Mass Index36.02005/28/2013 9:07 AM EST Plan of Treatment Health MaintenanceDue DateLast DoneCommentsAnxiety Khytgetpc02/06/1968Depression Kagaoadsb00/06/1968Hepatitis C Uofiwqzlw60/06/1968DTaP,Tdap,Td Vaccine (1 - Tdap)1968Lipid Qvkqdfkey19/06/1985CT Uzmvkxuoemld02/06/1995Cologuard (FIT-DNA)10/21/19947588Mthwsowxejm13/06/1995Colorectal Cancer Meqkvinmi65/06/1995 Fecal Occult Blood10/21/19947913Sfmehmkfezuke49/06/1995Pneumococcal Vaccine: 50+ (1 of 1 - PCV)10/22/1999Shingrix Vaccine (1 of 2)10/22/1999Diabetes Screening dvance Directive Fclsyszozn89/01/2025RSV Vaccine (1 - 1- dose 75+ series)2024ovid-19 Vaccine (1 - 2024-26 season)2024 Influenza Vaccine (#1)2024 Medical Devices ImplantedTypeAreaManufacturerDevice IdentifierShelf Expiration DateModel / Serial / LotCem Bn Co Hv 40gm - [id number] Implanted:Qty: 1 on 05/03/2013 at [facility] / PuttyLeft: Bone - HaqwPEHAUL05/30/[id number] / / [id number] Bn Co Hv 40gm - [id number] Implanted:Qty: 1 on 05/28/2013 at [facility] / PuttyRight: Bone - EwfuOWUBWO80/30/[id number] / / [id number] Implanted:Qty: 1 on 05/03/2013 at [facility] FHCImplantLeft: Bone - Knee [id number] / / [id number] Xs Uni Twin Femoral Cemen - [id number] Implanted:Qty: 1 on 05/28/2013 [facility] - Knee BIOMET ORTHO04/17/[id number] / / [id number] Vngrd M Oxfd Cocr Mlbdn - [id number] Implanted:Qty: 1 on 05/03/2013 at [facility] - KneeLeft: Bone - YipzCVKIBO33/30/[id number] / / [id number] 3mm Oxfd Arcm Lt Kn - [id number] Implanted:Qty: 1 on 05/03/2013 at [facility] - KneeLeft: Bone - ZpfcXBLLIX96/30/[id number] / / [id number] Vngrd M Oxfd Cocr Mlbdn - [id number] Implanted:Qty: 1 on 05/28/2013 at [facility] KneeRight: Bone - RxskTZCHHP68/30/[id number] / / [id number] 3mm Oxfd Rt Menis Kn Shirley - [id number] Implanted:Qty: 1 on 05/28/2013 at [facility] KneeRight: Bone - RhitVPDARC02/31/[id number] / / [id number] Procedures Procedure NamePriorityDate/TimeAssociated DiagnosisCommentsBASIC METABOLIC PANEL Yprlemt5203/29/2013 9:57 AM EST OA (osteoarthritis) of knee from Last 3 Months or Most Recently Relevant to Health Maintenance Results * (ABNORMAL) BASIC METABOLIC PNL (03/29/2013 9:57 AM EST)ComponentValueRef Range Test MethodAnalysis TimePerformed AtPathologist NzvwrccchJossmdu579(H)65 - 100 mg/dLAC[facility] KQWGMLIVWSICD9153 - 25 mg/dLAC[facility] LABORATORYCreatinine1.050.70 - 1.40 mg/dLAC[facility]ALTH[facility] LABORATORY Xzlgts102947 - 146 mmol/LCCLINTON [facility] LABORATORYPotassium4.33.5 - 5.0 mmol/LCCLINTON MEMORIAL [facility]OSPITAL ZTZNOLOJGRMmjrbkiw34025 - 110 mmol/LCCLINTON MEMORIAL [facility]PITAL HLLPGRFJUIJD75213 - 32 mmol/LCCLINTON MEMORIAL HOSPITAL LABORATORYAnion Ymw011 - 15 mmol/LCCLINTON MEMORIAL HOSPITAL LABORATORYCalcium9.38.5 - 10.5 mg/dL [facility] LABORATORYeGFR->60[facility] LABORATORYeGFR-All Other Races>60.[facility] LABORATORYComment: eGFR (Estimated GFR) Units of measure: [...] StatusMiceri Morrison MDLABORATORYFinal ResultPerforming OrganizationAddressCity/State/ZIP CodePhone Number [facility] [address] [place] [address] from Last 3 Months or Most Recently Relevant to Health Maintenance Insurance Care Teams Team MemberRelationshipSpecialtyStart DateEnd Date Constantino Lomax DO [facility]06/19/07
--- OUTSIDE RECORDS SUMMARY | 2025-04-15 06:46 | XMS_ITS | Encounter Summary ---
Author Organization [facility] Address [address] [place] [address] Phone Care Team Providers Care Coil Repair Technician Name Role Phone Raquelbozena Constantino Rufina LIMA Primary Care Provider [phone] Encounter Details DateTypeDepartmentCare Team (Latest Contact Info)Enlkswhefpk03/26/2025Travel Social History Tobacco UseTypesPacks/DayYears UsedDateSmoking Tobacco: NeverSmokeless Tobacco: NeverAlcohol UseStandard Drinks/WeekCommentsYes0 (1 standard drink = 0.6 oz pure alcohol)Sex and Gender InformationValueDate RecordedSex Assigned at BirthNot on fileLegal TupGavq44/22/2025 1:22 PM ESTGender IdentityNot on fileSexual OrientationNot on filedocumented as of this encounter Functional Status * Communicable Disease ScreeningQuestionAnswerDate of AssessmentAuthorDo you have any of the following new or worsening symptoms?None of these04/12/2025 8:41 AM Suzette Vazquez documented as of this encounter Plan of Treatment DateTypeDepartmentCare Team (Latest Contact Info)Uvfvfacbyve67/13/2026 8:45 AM ESTAppointment [facility] [address] [place] [phone] 04/30/2025 10:30 AM ESTAppointment [facility] [address] [place] [phone] 04/30/2025 11:00 AM ESTAppointment [facility] [address] [place] [phone] 04/30/2025 11:30 AM ESTAppointment [facility] [address] [facility] [address] [place] [address] 05/01/2025 11:30 AM ESTAppointment [facility] [address] [facility] [address] [place] [address] 05/01/2025 11:45 AM ESTAppointment [facility] [address] [facility] [address] [place] [address] 07/19/2025 9:[address] [facility] [address] [place] [phone] Wale Ragland MD [address] [facility] [place] [address] documented as of this encounter Visit Diagnoses Not on filedocumented in this encounter Additional Health Concerns AssessmentNoted TimeA fall risk assessment has been completed for the patient 04/12/2025 9:03 AM ESTdocumented as of this encounter Care Teams Team MemberRelationshipSpecialtyStart DateEnd Date Constantino Lomax DO [address] [place] [address] PCP - GeneralFamily Iebsivos28/22/25documented as of this encounter
--- OUTSIDE RECORDS SUMMARY | 2025-04-15 06:46 | XMS_ITS | Encounter Summary ---
Author Organization [facility] Address [address] [place] [address] Phone Care Team Providers Care Media Planner Name Role Phone RaquelConstantino seals Rufina LIMA Primary Care Provider [phone] Encounter Details DateTypeDepartmentCare Team (Latest Contact Info)Gkryiaezokj08/17/2025Scanned Document [facility] [address] [place] [address] Scanning, Generic Provider Social History Tobacco UseTypesPacks/DayYears UsedDateSmoking Tobacco: Never AssessedSex and Gender InformationValueDate RecordedSex Assigned at BirthNot on fileLegal Sex Male04/08/2025 1:22 PM ESTGender IdentityNot on fileSexual OrientationNot on filedocumented as of this encounter Plan of Treatment DateTypeDepartmentCare Team (Latest Contact Info)Rnzxpjvirbx11/13/2026 8:45 AM ESTAppointment [facility] [address] [place] [phone] 04/30/2025 10:30 AM ESTAppointment [facility] [address] [place] [phone] 04/30/2025 11:00 AM ESTAppointment [facility] [address] [place] [phone] 04/30/2025 11:30 AM ESTAppointment [facility] [address] [place] [phone] 05/01/2025 11:30 AM ESTAppointment [facility] [address] [facility] [address] [place] [address] 05/01/2025 11:45 AM ESTAppointment [facility] [address] [facility] [address] [place] [address] 07/19/2025 9:10 AM EDTOffice Visit [place] [address] [place] [phone] Wale Ragladn MD [facility] [facility] [place] [address] documented as of this encounter Procedures Procedure NamePriorityDate/TimeAssociated DiagnosisCommentsOUTSIDE IMAGING SCAN 04/03/2025 documented in this encounter Results * OUTSIDE IMAGING SCAN (04/03/2025)Anatomical RegionLateralityModalityOther Narrative 04/03/2025 Ordered by an unspecified provider. Authorizing ProviderResult TypeResult StatusGeneric Provider ScanningOUTSIDE SCANFinal Result documented in this encounter Visit Diagnoses Not on filedocumented in this encounter Care Teams Team MemberRelationshipSpecialtyStart DateEnd Date Constantino Lomax DO [address] [place] [address] PCP - GeneralFamily Whpweaaw96/22/25documented as of this encounter
--- OUTSIDE RECORDS SUMMARY | 2025-04-15 06:46 | XMS_ITS | Clinical Summary ---
Author Organization [facility] Address [address] [place] [address] Phone Care Team Providers Care Pharmacy Resource Tech Name Role Phone Constantino Lomax DO Primary Care Provider [phone] Allergies No known active allergies Medications MedicationSigDispense QuantityRefillsLast FilledStart DateEnd DateStatus albuterol 90 mcg/actuation inhaler 2 puffs if needed.5Active amLODIPine (Norvasc) 10 mg tablet Take 1 tablet (10 mg) by mouth once daily.5Active furosemide (Lasix) 40 mg tablet Take 1 tablet (40 mg) by mouth once daily.5Active losartan (Cozaar) 50 mg tablet Take 1 tablet (50 mg) by mouth once daily.5Active mecobalamin, vitamin B12, 1,000 mcg tablet,chewable Daily4Active metFORMIN XR 500 mg 24 hr tablet Take 1 tablet (500 mg) by mouth once daily in the evening. Take with meals. 5Active metoprolol succinate XL (Toprol-XL) 100 mg 24 hr tablet Take 1 tablet (100 mg) by mouth once daily.5Active omeprazole (PriLOSEC) [address] capsule Take 1 capsule (40 mg) by mouth once daily in the morning. Take before meals. 5Active Blood glucose monitoring meter 1 each if needed.Active Active Problems ProblemNoted DateDiagnosed DateShortness of tpjxny0604/12/2025ongestive heart huekmql5604/12/2025Essential (primary) cicnstyrxvqe94/26/2025MI 45.0-49.9, adult 04/12/2025Never smoked psnumvg7704/12/2025Obstructive sleep apnea syndrome 04/12/20259567Bgxiymp31/26/2025 Encounters DateTypeDepartmentCare GokvQvzzrqiemkq00/26/2025 9:00 AM ESTOffice Visit [facility] [address] [phone] Wale Ragland MD Shortness of breath (Primary Dx); Congestive heart failure, unspecified HF chronicity, unspecified heart failure type (Multi); Essential (primary) hypertension; BMI 45.0-49.9, adult (Multi); Never smoked tobacco; Obstructive sleep apnea syndrome; Snoring Discharge Disposition: Home04/12/20258335Lsgewe66/22/2025Scanned Document [facility] [address] [place] [address] Scanning, Generic Provider 04/03/2025Scanned Document [facility] [address] [place] [address] Scanning, Generic Provider from Last 3 Months Family History Medical HistoryRelationNameCommentspacemakerBrothercabgFatherheart cathMother RelationNameStatusCommentsBrotherFatherMother Social History Tobacco UseTypesPacks/DayYears UsedDateSmoking Tobacco: NeverSmokeless Tobacco: Never Tobacco Cessation:Counseling Given: Not Answered Alcohol UseStandard Drinks/WeekCommentsYes0 (1 standard drink = 0.6 oz pure alcohol)Sex and Gender InformationValueDate RecordedSex Assigned at BirthNot on fileLegal XghKbiu97/22/2025 1:22 PM ESTGender IdentityNot on fileSexual OrientationNot on file Last Filed Vital Signs Vital SignReadingTime TakenCommentsBlood Ohirkxrc834/80106/13/2024 9:04 AM EST Lmire126104/12/2025 9:03 AM ESTTemperature--Respiratory Rate--Oxygen Saturation-- Inhaled Oxygen Concentration--Pyulsq497 kg (301 lb)04/12/2025 9:03 AM ESTHeight 172.7 cm (5' 8 )04/12/2025 9:03 AM ESTBody Mass Index45.7704/12/2025 9:03 AM EST Plan of Treatment DateTypeDepartmentCare Team (Latest Contact Info)Zdlzvacbicx93/13/2026 8:45 AM ESTAppointment [facility] [facility] [place] [address] 04/30/2025 10:30 AM ESTAppointment [facility] [address] [place] [address] 04/30/2025 11:00 AM ESTAppointment [facility] [place] [address] 04/30/2025 11:30 AM ESTAppointment [facility] [address] [place] [address] [place] [address] 05/01/2025 11:30 AM ESTAppointment [facility] [address] [facility] [place] [address] 05/01/2025 11:45 AM ESTAppointment [facility] [address] [place] [address] 07/19/2025 9:10 AM EDTOffice Visit [place] [address] [facility] [address] [place] [phone] Wale Ragland MD [address]03 [facility] [address] [place] [address] Health MaintenanceDue DateLast DoneCommentsCT Krlhjylerbbn13/06/1950Colonoscopy 1949Colorectal Cancer Jpuntvpeu03/06/1950Creatinine Level1949 Obpcvorbqhryqb20/06/1950FIT-DNA (Cologuard)1949FIT1949Lipid Panel 1949Medicare Annual Wellness Visit (AWV)1949Potassium Level 1949 3807Yigbrorrjsqpb68/06/1950MMR Vaccines (1 of 1 - Standard series) 1950Hepatitis C Xxzaprtkh98/06/1968Pneumococcal Vaccine (1 of 2 - PCV) 1968DTaP/Tdap/Td Vaccines (1 - Tdap)10/22/1971Zoster Vaccines (1 of 2) 10/22/1999RSV High Risk: (Elderly (60+) or Population) (1 - 1-dose 75+ series)5COVID-19 Vaccine (1 - 2024- season)2024Influenza Vaccine (#1), 01/14/2016HIB VaccinesAged OutNo longer eligible based on patient's age to complete this topicHPV VaccinesAged OutNo longer eligible based on patient's age to complete this topicHepatitis A VaccinesAged OutNo longer eligible based on patient's age to complete this topic Hepatitis B VaccinesAged OutNo longer eligible based on patient's age to complete this topicIPV VaccinesAged OutNo longer eligible based on patient's age to complete this topicMeningococcal VaccineAged OutNo longer eligible based on patient's age to complete this topicRotavirus VaccinesAged OutNo longer eligible based on patient's age to complete this topic Procedures Procedure NamePriorityDate/TimeAssociated DiagnosisCommentsECG 12-LEADRoutine 04/12/2025 9:00 AM EST Shortness of breath OUTSIDE IMAGING SCAN04/03/2025 from Last 3 Months Results * ECG 12 Lead (04/12/2025 9:00 AM EST)Specimen (Source)Anatomical Location / LateralityCollection Method / VolumeCollection TimeReceived Time Narrative CPACS - 04/12/2025 9:35 AM EST Normal sinus rhythm Authorizing ProviderResult TypeResult StatusMourhaf Traboulhusami MDECG ORDERABLES Final ResultPerforming OrganizationAddressCity/State/ZIP CodePhone Number CPACS * OUTSIDE IMAGING SCAN (04/03/2025)Anatomical RegionLateralityModalityOther Narrative 04/03/2025 Ordered by an unspecified provider. Authorizing ProviderResult TypeResult StatusGeneric Provider ScanningOUTSIDE SCANFinal Result from Last 3 Months Insurance * Guarantor: Roz Madison TypeRelation to PatientDate of BirthPhone Billing AddressPersonal/NyiupgKuhw[birth year][address] [place] [phone] * Guarantor: Roz Madison TypeRelation to PatientDate of BirthPhone Billing AddressPersonal/ImzjgwKbbf41/[birth year][id number] [place] [id number] Care Teams Team MemberRelationshipSpecialtyStart DateEnd Date Constantino Lomax DO [address] [place] [address] PCP - GeneralFamily Egdsodhx44/22/25
--- OUTSIDE RECORDS SUMMARY | 2025-04-15 06:46 | XMS_ITS | Encounter Summary ---
Author Organization [facility] Address [address] [place] [address] Phone Care Team Providers Care Improvement Manager Name Role Phone RaquelConstantino seals Rufina LIMA Primary Care Provider [phone] Encounter Details DateTypeDepartmentCare Team (Latest Contact Info)Jyovhkgfxgj88/22/2025Scanned Document [facility] [address] [place] [address] Scanning, Generic Provider Social History Tobacco UseTypesPacks/DayYears UsedDateSmoking Tobacco: Never AssessedSex and Gender InformationValueDate RecordedSex Assigned at BirthNot on fileLegal Sex Male04/08/2025 1:22 PM ESTGender IdentityNot on fileSexual OrientationNot on filedocumented as of this encounter Plan of Treatment DateTypeDepartmentCare Team (Latest Contact Info)Cixaiszcwia92/13/2026 8:45 AM ESTAppointment [facility] [address] [place] [phone] 04/30/2025 10:30 AM ESTAppointment [facility] [address] [place] [phone] 04/30/2025 11:00 AM ESTAppointment [facility] [address] [place] [phone] 04/30/2025 11:30 AM ESTAppointment [facility] [address] [place] [phone] 05/01/2025 11:30 AM ESTAppointment [facility] [address] [facility] [address] [place] [address] 05/01/2025 11:45 AM ESTAppointment [facility] [address] [facility] [address] [place] [address] 07/19/2025 9:10 AM EDTOffice Visit [place] [address] [facility] [address] [place] [id number] Wale Ragland MD [address] [facility] [address], [facility] [address] [place] [address] documented as of this encounter Visit Diagnoses Not on filedocumented in this encounter Care Teams Team MemberRelationshipSpecialtyStart DateEnd Date Constantino Lomax DO [address] [place] [address] PCP - GeneralFamily Puzybcsz69/22/25documented as of this encounter
[2025-04-15 07:29] LABS: Anion Gap 11.9; Blood Urea Nitrogen 17.0 mg/dL (7.0-18.0); Calcium 8.6 mg/dL (8.5-10.1); Carbon Dioxide 30.3 mmol/L (21.0-32.0); Chloride 99 mmol/L (98-107); Estimated GFR (African America >60 (>=60 mL/min/1.73m^2); Estimated GFR (Non-African Ame 58 (>=60 mL/min/1.73m^2); Glucose 161 mg/dL (74-106); NT Pro B Type Natriuretic Pept 368.0 pg/mL (<=1800.0); Potassium 4.2 mmol/L (3.5-5.1); Sodium 137 mmol/L (136-145)
== END 2025-04-15 06:41 | disposition home or self-care (01) ==
LOC: LAB 06:42
PROVIDERS: PCP Family Medicine; Visit Provider Family Medicine
DX: R60.9 Edema, unspecified (principal); I50.9 Heart failure, unspecified; I51.7 Cardiomegaly
CPT/HCPCS: 36415; 80048; 83880